=== PATIENT | female | born 1950 | race Caucasian/White ===

== ENCOUNTER 2016-09-07 17:18 | Emergency (ER) | payer MEDICARE, OTHER ==
[~2016-09-07] VITALS: Ht 170.2 cm; Wt 51.7 kg
[~2016-09-07 17:18] MED LIST: ALBUAER3 IN; ALPR0.5T PO
[2016-09-07 18:36] LABS: Basophils # (auto) 0 uL; Basophils % (auto) 0.5 % (0.0-2.0); CONDITION AutoValidated; Eosinophils # (auto) 0.1 uL; Eosinophils % (auto) 1.8 % (0.0-7.0); Hematocrit 46.4 % (36.0-46.0); Hemoglobin 15.1 g/dL (12.2-16.2); Lymphocytes # (auto) 2.1 uL; Lymphocytes % (auto) 28.8 % (10.0-50.0); Mean Corpuscular Hemoglobin 29.7 pg (28.0-32.0); Mean Corpuscular Hgb Conc. 32.7 g/dL (32.0-36.0); Mean Corpuscular Volume 90.8 fL (80.0-100.0); Mean Platelet Volume 9.8 fL (7.4-10.4); Monocytes # (auto) 0.5 uL; Monocytes % (auto) 7.6 % (0.0-12.0); Neutrophils # (auto) 4.4 uL; Neutrophils % (auto) 61.3 % (37.0-80.0); Platelet Count (auto) 262 10^3/uL (140-450); Red Cell Distribution Width 13.8 % (11.6-16.0); White Blood Cell 7.1 10^3/uL (4.4-10.8)
[2016-09-07 18:46] LABS: Chloride 108 mmol/L (98-107); Potassium 3.9 mmol/L (3.5-5.1); Sodium 141 mmol/L (136-145)
[2016-09-07 18:51] LABS: Albumin 3.9 g/dL (3.4-5.0); Anion Gap 10 (5-15); Aspartate Aminotransferase 10 U/L (15-37); BUN/Creatinine Ratio 14.7; Blood Urea Nitrogen 11 mg/dL (7-18); Calcium 8.7 mg/dL (8.5-10.1); Carbon Dioxide 23 mmol/L (21-32); GFR African American 99 mL/min; GFR Non-African American 82 mL/min; Glucose 86 mg/dL (74-106); Magnesium 2.4 mg/dL (1.6-2.6)
[2016-09-07 18:53] LABS: Alkaline Phosphatase 107 U/L (45-117); Bilirubin, Total 0.5 mg/dL (0.2-1.0); Total Protein 7.1 g/dL (6.4-8.2)
[2016-09-07] MEDS ORDERED: IOHEXOL 300 MG/ML 100ML BOTTLE IJ ONE (23:14)
[2016-09-07] MEDS ORDERED: ONDANSETRON HCL 4 MG/2 ML VIAL IV ONE (23:15)
[2016-09-07] MEDS ORDERED: LIDOCAINE VISCOUS 2% 15ML UD PO ONE (23:15)
[2016-09-07] MEDS ORDERED: DONNATAL 5ml ORAL Elix (BELLADONNA ALK-PHENOBARB) PO ONE (23:15)
[2016-09-07] MEDS ORDERED: SODIUM CHLORIDE 0.9% 1,000 ML IV ONE (23:15)
[2016-09-07] MEDS ORDERED: ALUM & MAG HYDROX-SIMETH LIQ(MAALOX) 30 ML PO ONE (23:15)
[2016-09-08 01:07] LABS: Urine RBC None Seen /hpf (0 - 4)
[2016-09-08 01:27] VITALS: BP 123/76
[2016-09-08 01:51] LABS: Urine Bilirubin Negative (Negative); Urine Blood Negative /uL (Negative); Urine Color Yellow (Yellow); Urine Glucose Normal (Normal); Urine Ketone Negative (Negative); Urine Nitrite Negative (Negative); Urine Urobilinogen Normal (Negative)
== END 2016-09-08 04:37 | disposition home or self-care (01) ==
LOC: ER 17:27
DX: K29.00 Acute gastritis without bleeding (principal); J44.9 Chronic obstructive pulmonary disease, unspecified; F17.210 Nicotine dependence, cigarettes, uncomplicated; Z79.899 Other long term (current) drug therapy
CPT/HCPCS: 36415; 71020; 74177; 80053; 81001; 83735; 84484; 85025; 93005; 94761; 96361; 96374; 99285; J2405; J7030; Q9967

== ENCOUNTER 2016-09-12 10:55 | Emergency (ER) | payer OTHER ==
[~2016-09-12] VITALS: Ht 170.2 cm; Wt 51.7 kg
[2016-09-12 12:58] LABS: Basophils # (auto) 0 uL; Basophils % (auto) 0.4 % (0.0-2.0); CONDITION Y; Eosinophils # (auto) 0.1 uL; Eosinophils % (auto) 0.9 % (0.0-7.0); Hemoglobin 15.4 g/dL (12.2-16.2); Lymphocytes # (auto) 1.8 uL; Lymphocytes % (auto) 25.2 % (10.0-50.0); Mean Corpuscular Hemoglobin 30.1 pg (28.0-32.0); Mean Corpuscular Hgb Conc. 33.5 g/dL (32.0-36.0); Mean Corpuscular Volume 89.9 fL (80.0-100.0); Mean Platelet Volume 9.6 fL (7.4-10.4); Monocytes # (auto) 0.5 uL; Monocytes % (auto) 6.7 % (0.0-12.0); Neutrophils # (auto) 4.8 uL; Neutrophils % (auto) 66.8 % (37.0-80.0); Platelet Count (auto) 249 10^3/uL (140-450); Red Cell Distribution Width 13.4 % (11.6-16.0); White Blood Cell 7.2 10^3/uL (4.4-10.8)
[2016-09-12 13:33] LABS: Albumin 3.9 g/dL (3.4-5.0); BUN/Creatinine Ratio 12.9; Bilirubin, Total 0.6 mg/dL (0.2-1.0); Calcium 8.9 mg/dL (8.5-10.1); Total Protein 6.8 g/dL (6.4-8.2)
[2016-09-12] MEDS ORDERED: SODIUM CHLORIDE 0.9% 1,000 ML IVB ONE (15:21)
[2016-09-12] MEDS ORDERED: IOHEXOL 300 MG/ML 100ML BOTTLE IJ ONE (15:30)
[2016-09-12] MEDS ORDERED: HYDROmorphone HCL 2 MG/ML VL IV ONE (15:30)
[2016-09-12] MEDS ORDERED: ONDANSETRON HCL 4 MG/2 ML VIAL IV ONE (15:30)
[2016-09-12] MEDS ORDERED: PANTOPRAZOLE SODIUM 40 MG/10 ML VIAL IV ONE (15:30)
[2016-09-12 17:16] LABS: Magnesium 2.9 mg/dL (1.6-2.6)
[2016-09-12 17:44] LABS: Urine Bilirubin Negative (Negative); Urine Blood Negative /uL (Negative); Urine Color Yellow (Yellow); Urine Glucose Normal (Normal); Urine Mucus FEW (None Seen); Urine Nitrite Negative (Negative); Urine RBC <1 /hpf (0 - 4); Urine Squamous Epithelial Cell FEW /hpf (<5); Urine Urobilinogen Normal (Negative)
[2016-09-12 17:45] LABS: Urine Ketone 1+ (Negative)
[2016-09-12 17:51] LABS: INR 1.03 (0.9-1.15); Partial Thromboplastin Time 25.4 sec (22.64-33.71); Prothrombin Time 11.2 sec (9.37-12.3)
[2016-09-12] MEDS ORDERED: ALUM & MAG HYDROX-SIMETH LIQ(MAALOX) 30 ML PO ONE (18:30)
[2016-09-12] MEDS ORDERED: NALBUPHINE HCL 10 MG/1ml INJECTION IV ONE (20:00)
[2016-09-12 22:08] VITALS: BP 120/73
== END 2016-09-12 22:16 | disposition home or self-care (01) ==
LOC: ER 10:55
DX: K59.00 Constipation, unspecified (principal); R10.13 Epigastric pain; R11.2 Nausea with vomiting, unspecified; J44.9 Chronic obstructive pulmonary disease, unspecified; F17.210 Nicotine dependence, cigarettes, uncomplicated
CPT/HCPCS: 36415; 74022; 80053; 81001; 82150; 83690; 83735; 85025; 85610; 85730; 93005; 96361; 96374; 96375; 99285; C9113; J2300; J2405; J7030; Q9967

== ENCOUNTER → 2016-11-30 | Outpatient (CLI) | payer OTHER ==
[2016-11-30 11:51] LABS: Basophils # (auto) 0 uL; Basophils % (auto) 0.5 % (0.0-2.0); Eosinophils # (auto) 0 uL; Eosinophils % (auto) 0.5 % (0.0-7.0); Hematocrit 44.6 % (36.0-46.0); Hemoglobin 15.2 g/dL (12.2-16.2); Lymphocytes # (auto) 1.4 uL; Lymphocytes % (auto) 18.8 % (10.0-50.0); Mean Corpuscular Hemoglobin 31.1 pg (28.0-32.0); Mean Corpuscular Hgb Conc. 34.1 g/dL (32.0-36.0); Mean Corpuscular Volume 91.1 fL (80.0-100.0); Monocytes # (auto) 0.4 uL; Monocytes % (auto) 5.5 % (0.0-12.0); Neutrophils # (auto) 5.5 uL; Neutrophils % (auto) 74.7 % (37.0-80.0); Platelet Count (auto) 224 10^3/uL (140-450); Red Cell Distribution Width 13.9 % (11.6-16.0); White Blood Cell 7.3 10^3/uL (4.4-10.8)
[2016-11-30 11:54] LABS: Allen Test Yes; Base Excess -1.7 mmol/L (-2.0-2.0); Blood 02Sat 95.8 % (96-100); Blood COHb 2.2 % (0.5-1.5); Blood MetHb 0.3 % (0.0-1.5); HCO3 21.3 mmol/L (22-26.0); HHb 4.1 % (0.0-5.0); MODE RA; O2Hb 93.4 % (94.0-97.0); PCO2 31.8 mmHg (35.0-45.0); PCO2(T) 31.8 mmHg (35.0-45.0); PO2 80.1 mmHg (80.0-100.0); PO2(T) 80.1 mmHg (80.0-100.0); Sample Type Arterial; pH 7.444 (7.350-7.450)
[2016-11-30 12:38] LABS: Potassium 3.7 mmol/L (3.5-5.1)
[2016-11-30 12:39] LABS: Albumin 3.6 g/dL (3.4-5.0); BUN/Creatinine Ratio 14.1; Bilirubin, Total 0.7 mg/dL (0.2-1.0); Calcium 9.1 mg/dL (8.5-10.1); Total Protein 6.9 g/dL (6.4-8.2)
== END | disposition home or self-care (01) ==
LOC: LAB 10:56 → RT 11:31
PROVIDERS: ATTEND Physician Assistant
DX: J44.9 Chronic obstructive pulmonary disease, unspecified (principal); N18.3 Chronic kidney disease, stage 3 (moderate)
CPT/HCPCS: 36415; 36600; 80053; 80061; 82306; 82607; 82805; 83036; 84443; 85025

== ENCOUNTER → 2017-01-04 | Outpatient (CLI) | payer OTHER ==
[~2017-01-04] MED LIST changes: +ALBUTEROL SULF 2.5 MG/0.5ML(0.5%) NEB SOLN ONE; +SODIUM CHLORIDE 0.9 % NEB SOLN 3ML NEB ONE
== END | disposition home or self-care (01) ==
LOC: RT 08:25
PROVIDERS: ATTEND Internal Medicine Pulmonary Disease
DX: J44.9 Chronic obstructive pulmonary disease, unspecified (principal)
CPT/HCPCS: 94060; 94620

== ENCOUNTER 2017-03-26 11:44 | Inpatient (IN) | payer OTHER ==
[~2017-03-26] VITALS: Ht 170.2 cm; Wt 70.3 kg
[~2017-03-26 11:44] MED LIST changes: -ALBUTEROL SULF 2.5 MG/0.5ML(0.5%) NEB SOLN ONE; -SODIUM CHLORIDE 0.9 % NEB SOLN 3ML NEB ONE
[2017-03-26] MEDS ORDERED: IPRATROPIUM BROM 0.5 MG/2.5ML INH SOL HHN ONE (14:00)
[2017-03-26] MEDS ORDERED: methylPREDNISolone SOD SUCC 125 MG/2 ML VL IV ONE (14:00)
[2017-03-26] MEDS ORDERED: ALBUTEROL SULF 2.5 MG/0.5ML(0.5%) NEB SOLN HHN ONE (14:00)
[2017-03-26 14:42] LABS: Basophils # (auto) 0 uL; Basophils % (auto) 0.6 % (0.0-2.0); Eosinophils # (auto) 0.1 uL; Eosinophils % (auto) 2.1 % (0.0-7.0); Hematocrit 44.9 % (36.0-46.0); Hemoglobin 15.1 g/dL (12.2-16.2); Lymphocytes # (auto) 1.7 uL; Lymphocytes % (auto) 40.8 % (10.0-50.0); Mean Corpuscular Hemoglobin 30.8 pg (28.0-32.0); Mean Corpuscular Hgb Conc. 33.7 g/dL (32.0-36.0); Mean Corpuscular Volume 91.4 fL (80.0-100.0); Monocytes # (auto) 0.4 uL; Monocytes % (auto) 9.2 % (0.0-12.0); Neutrophils # (auto) 1.9 uL; Neutrophils % (auto) 47.3 % (37.0-80.0); Nucleated Red Blood Cells % 0.5 %; Platelet Count (auto) 154 10^3/uL (140-450); Red Blood Cells 4.91 10^6/uL (4.0-5.20); Red Cell Distribution Width 13.9 % (11.8-14.3); White Blood Cell 4.1 10^3/uL (4.4-10.8)
[2017-03-26 14:58] LABS: Alanine Aminotransferase 17 U/L (13-56); Albumin 3.5 g/dL (3.4-5.0); Alkaline Phosphatase 107 U/L (45-117); Anion Gap 7 (5-15); Aspartate Aminotransferase 11 U/L (15-37); BUN/Creatinine Ratio 23.2; Bilirubin, Total 0.4 mg/dL (0.2-1.0); Blood Urea Nitrogen 13 mg/dL (7-18); Calcium 8.1 mg/dL (8.5-10.1); Carbon Dioxide 25 mmol/L (21-32); Chloride 110 mmol/L (98-107); GFR African American 139 mL/min; GFR Non-African American 115 mL/min; Glucose 86 mg/dL (74-106); Potassium 3.5 mmol/L (3.5-5.1); Sodium 142 mmol/L (136-145); Total Protein 6.4 g/dL (6.4-8.2)
[2017-03-26] MEDS ORDERED: ACETAMINOPHEN 325 MG TAB PO PRN (22:45)
[2017-03-26] MEDS ORDERED: HYDROcodone-ACET 5/325MG TAB PO PRN (22:45)
[2017-03-26] MEDS ORDERED: ONDANSETRON HCL 4 MG/2 ML VIAL IV PRN (22:45)
[2017-03-26 23:40] VITALS: BP 119/62
[2017-03-27] VITALS (7 sets, daily range): BP systolic 105–123; BP diastolic 59–71
[2017-03-27] MEDS: ALPRAZolam 0.5 MG TAB PO PRN ×2 (04:30→20:34)
[2017-03-27 06:22] LABS: Basophils # (auto) 0 uL; Basophils % (auto) 0.1 % (0.0-2.0); Eosinophils # (auto) 0 uL; Eosinophils % (auto) 0.1 % (0.0-7.0); Hemoglobin 14.3 g/dL (12.2-16.2); Lymphocytes # (auto) 0.7 uL; Lymphocytes % (auto) 16.1 % (10.0-50.0); Mean Corpuscular Hemoglobin 30.5 pg (28.0-32.0); Mean Corpuscular Hgb Conc. 33.2 g/dL (32.0-36.0); Mean Corpuscular Volume 91.9 fL (80.0-100.0); Monocytes # (auto) 0.4 uL; Monocytes % (auto) 8.3 % (0.0-12.0); Neutrophils # (auto) 3.3 uL; Neutrophils % (auto) 75.4 % (37.0-80.0); Platelet Count (auto) 158 10^3/uL (140-450); Red Blood Cells 4.68 10^6/uL (4.0-5.20); Red Cell Distribution Width 13.7 % (11.8-14.3); White Blood Cell 4.4 10^3/uL (4.4-10.8)
[2017-03-27 06:46] LABS: BUN/Creatinine Ratio 32.1; Calcium 8.8 mg/dL (8.5-10.1); Potassium 4.3 mmol/L (3.5-5.1)
[2017-03-27] MEDS: IPRATROPIUM BROM 0.5 MG/2.5ML INH SOL NEB SCH ×5 (07:34→22:35)
[2017-03-27] MEDS: ALBUTEROL SULF 2.5 MG/0.5ML(0.5%) NEB SOLN NEB SCH ×5 (07:34→22:35)
[2017-03-27] MEDS ORDERED: UMEC1AER IN (08:22)
[2017-03-27] MEDS ORDERED: AZITHROMYCIN 250 MG TAB PO SCH (10:00)
[2017-03-27] MEDS: methylPREDNISolone SOD SUCC 125 MG/2 ML VL IV SCH (21:03)
[2017-03-27] MEDS: DOXYCYCLINE 100 MG TAB/CAP PO SCH (21:04)
[2017-03-27] MEDS: BUDESONIDE (INHALATION) 0.5 MG/2 ML NEB NEB SCH (22:35)
[2017-03-28 05:53] VITALS: BP 111/65
[2017-03-28] MEDS: methylPREDNISolone SOD SUCC 125 MG/2 ML VL IV SCH ×3 (06:00→20:36)
[2017-03-28] MEDS: ALBUTEROL SULF 2.5 MG/0.5ML(0.5%) NEB SOLN NEB SCH ×4 (07:05→19:16)
[2017-03-28] MEDS: IPRATROPIUM BROM 0.5 MG/2.5ML INH SOL NEB SCH ×4 (07:05→19:16)
[2017-03-28 08:00] VITALS: BP 114/65
[2017-03-28] MEDS: DOXYCYCLINE 100 MG TAB/CAP PO SCH ×2 (09:25→20:35)
[2017-03-28] MEDS: BUDESONIDE (INHALATION) 0.5 MG/2 ML NEB NEB SCH ×2 (10:22→19:16)
[2017-03-28 12:00] VITALS: BP 121/65
[2017-03-28 17:00] VITALS: BP 118/62
[2017-03-28] MEDS: ALPRAZolam 0.5 MG TAB PO PRN (22:06)
[2017-03-28 22:17] VITALS: BP 107/69
[2017-03-29] MEDS: methylPREDNISolone SOD SUCC 125 MG/2 ML VL IV SCH ×3 (05:26→21:35)
[2017-03-29 05:52] VITALS: BP 117/68
[2017-03-29] MEDS: ALBUTEROL SULF 2.5 MG/0.5ML(0.5%) NEB SOLN NEB SCH ×4 (06:05→18:55)
[2017-03-29] MEDS: BUDESONIDE (INHALATION) 0.5 MG/2 ML NEB NEB SCH ×2 (06:05→18:56)
[2017-03-29] MEDS: IPRATROPIUM BROM 0.5 MG/2.5ML INH SOL NEB SCH ×4 (06:05→18:55)
[2017-03-29 09:00] VITALS: BP 110/65
[2017-03-29] MEDS: DOXYCYCLINE 100 MG TAB/CAP PO SCH ×2 (09:30→21:35)
[2017-03-29 13:00] VITALS: BP 145/71
[2017-03-29 17:00] VITALS: BP 122/63
[2017-03-29] MEDS: ALPRAZolam 0.5 MG TAB PO PRN (21:36)
[2017-03-29] MEDS: DOCUSATE SOD 100 MG CAP PO PRN (21:36)
[2017-03-29 23:25] VITALS: BP 114/53
[2017-03-30 05:11] VITALS: BP 113/61
[2017-03-30] MEDS: IPRATROPIUM BROM 0.5 MG/2.5ML INH SOL NEB SCH ×4 (06:06→19:17)
[2017-03-30] MEDS: ALBUTEROL SULF 2.5 MG/0.5ML(0.5%) NEB SOLN NEB SCH ×4 (06:06→19:17)
[2017-03-30] MEDS: methylPREDNISolone SOD SUCC 125 MG/2 ML VL IV SCH ×3 (06:22→21:42)
[2017-03-30 08:24] VITALS: BP 114/72
[2017-03-30] MEDS: DOXYCYCLINE 100 MG TAB/CAP PO SCH ×2 (09:29→21:42)
[2017-03-30] MEDS: BUDESONIDE (INHALATION) 0.5 MG/2 ML NEB NEB SCH ×2 (10:24→19:18)
[2017-03-30] MEDS: DOCUSATE SOD 100 MG CAP PO PRN (11:54)
[2017-03-30 12:00] VITALS: BP 116/61
[2017-03-30] MEDS: guaiFENesin 200 MG/10 ML UD GT SCH ×2 (13:55→18:41)
[2017-03-30 14:29] VITALS: BP 116/61
[2017-03-30 16:00] VITALS: BP 116/67
[2017-03-30] MEDS: ALPRAZolam 0.5 MG TAB PO PRN (23:00)
[2017-03-30 23:58] VITALS: BP 125/65
[2017-03-31 04:56] VITALS: BP 118/68
[2017-03-31] MEDS: methylPREDNISolone SOD SUCC 125 MG/2 ML VL IV SCH ×3 (05:59→21:29)
[2017-03-31] MEDS: guaiFENesin 200 MG/10 ML UD GT SCH ×4 (05:59→17:45)
[2017-03-31] MEDS: ALBUTEROL SULF 2.5 MG/0.5ML(0.5%) NEB SOLN NEB SCH ×4 (06:29→22:00)
[2017-03-31] MEDS: IPRATROPIUM BROM 0.5 MG/2.5ML INH SOL NEB SCH ×4 (06:29→22:00)
[2017-03-31 09:20] VITALS: BP 114/63
[2017-03-31] MEDS: DOXYCYCLINE 100 MG TAB/CAP PO SCH ×2 (09:27→21:29)
[2017-03-31] MEDS: DOCUSATE SOD 100 MG CAP PO PRN ×2 (09:27→21:30)
[2017-03-31] MEDS: BUDESONIDE (INHALATION) 0.5 MG/2 ML NEB NEB SCH ×2 (10:07→22:00)
[2017-03-31 13:46] VITALS: BP 103/65
[2017-03-31] MEDS ORDERED: AZITHROMYCIN 500MG/ 250ML 250 ML IV ONE (16:15)
[2017-03-31] MEDS ORDERED: MONTELUKAST SODIUM 10 MG TAB PO ONE (16:15)
[2017-03-31 17:42] VITALS: BP 104/62
[2017-03-31] MEDS: MONTELUKAST SODIUM 10 MG TAB PO SCH (21:29)
[2017-03-31 21:30] VITALS: BP 111/62
[2017-03-31] MEDS: ALPRAZolam 0.5 MG TAB PO PRN (21:30)
[2017-04-01 05:30] VITALS: BP 99/56
[2017-04-01] MEDS: ALBUTEROL SULF 2.5 MG/0.5ML(0.5%) NEB SOLN NEB SCH ×4 (05:47→18:44)
[2017-04-01] MEDS: IPRATROPIUM BROM 0.5 MG/2.5ML INH SOL NEB SCH ×4 (05:47→18:44)
[2017-04-01] MEDS: BUDESONIDE (INHALATION) 0.5 MG/2 ML NEB NEB SCH ×2 (05:47→22:55)
[2017-04-01] MEDS: methylPREDNISolone SOD SUCC 125 MG/2 ML VL IV SCH ×3 (05:58→21:19)
[2017-04-01] MEDS: guaiFENesin 200 MG/10 ML UD GT SCH ×4 (05:58→17:48)
[2017-04-01 09:17] VITALS: BP 109/55
[2017-04-01] MEDS: AZITHROMYCIN 500MG/ 250ML 250 ML IV SCH (09:40)
[2017-04-01] MEDS: DOCUSATE SOD 100 MG CAP PO PRN ×2 (09:40→22:10)
[2017-04-01] MEDS: DOXYCYCLINE 100 MG TAB/CAP PO SCH ×2 (10:00→21:19)
[2017-04-01 12:47] VITALS: BP 115/58
[2017-04-01 17:40] VITALS: BP 111/62
[2017-04-01] MEDS: MONTELUKAST SODIUM 10 MG TAB PO SCH (21:19)
[2017-04-01 21:30] VITALS: BP 114/69
[2017-04-01] MEDS: ALPRAZolam 0.5 MG TAB PO PRN (22:10)
[2017-04-02] VITALS (7 sets, daily range): BP systolic 105–145; BP diastolic 59–77
[2017-04-02] MEDS: guaiFENesin 200 MG/10 ML UD GT SCH ×4 (06:03→18:00)
[2017-04-02] MEDS: methylPREDNISolone SOD SUCC 125 MG/2 ML VL IV SCH ×3 (06:03→19:04)
[2017-04-02] MEDS: IPRATROPIUM BROM 0.5 MG/2.5ML INH SOL NEB SCH ×4 (06:38→19:52)
[2017-04-02] MEDS: ALBUTEROL SULF 2.5 MG/0.5ML(0.5%) NEB SOLN NEB SCH ×4 (06:38→19:52)
[2017-04-02 06:50] LABS: Basophils # (auto) 0 uL; Basophils % (auto) 0.1 % (0.0-2.0); Eosinophils # (auto) 0 uL; Hematocrit 44.9 % (36.0-46.0); Hemoglobin 14.8 g/dL (12.2-16.2); Lymphocytes # (auto) 1.4 uL; Lymphocytes % (auto) 10.4 % (10.0-50.0); Mean Corpuscular Hgb Conc. 32.9 g/dL (32.0-36.0); Mean Corpuscular Volume 91.3 fL (80.0-100.0); Monocytes # (auto) 0.7 uL; Monocytes % (auto) 5.5 % (0.0-12.0); Nucleated Red Blood Cells % 0.1 %; Platelet Count (auto) 277 10^3/uL (140-450); Red Blood Cells 4.92 10^6/uL (4.0-5.20); White Blood Cell 13.1 10^3/uL (4.4-10.8)
[2017-04-02 07:07] LABS: BUN/Creatinine Ratio 34.6; Calcium 8.6 mg/dL (8.5-10.1)
[2017-04-02] MEDS: BUDESONIDE (INHALATION) 0.5 MG/2 ML NEB NEB SCH ×2 (10:11→19:52)
[2017-04-02] MEDS: DOXYCYCLINE 100 MG TAB/CAP PO SCH ×2 (10:51→21:36)
[2017-04-02] MEDS: AZITHROMYCIN 500MG/ 250ML 250 ML IV SCH (10:52)
[2017-04-02] MEDS: MONTELUKAST SODIUM 10 MG TAB PO SCH (21:36)
[2017-04-02] MEDS: ALPRAZolam 0.5 MG TAB PO PRN (21:36)
[2017-04-02] MEDS: DOCUSATE SOD 100 MG CAP PO PRN (21:42)
[2017-04-03] MEDS: methylPREDNISolone SOD SUCC 125 MG/2 ML VL IV SCH ×3 (00:20→15:59)
[2017-04-03 05:00] VITALS: BP 127/70
[2017-04-03] MEDS: ALPRAZolam 0.5 MG TAB PO PRN (05:55)
[2017-04-03] MEDS: guaiFENesin 200 MG/10 ML UD GT SCH ×3 (05:56→14:00)
[2017-04-03] MEDS: IPRATROPIUM BROM 0.5 MG/2.5ML INH SOL NEB SCH ×3 (06:35→13:53)
[2017-04-03] MEDS: ALBUTEROL SULF 2.5 MG/0.5ML(0.5%) NEB SOLN NEB SCH ×3 (06:36→13:54)
[2017-04-03 08:00] VITALS: BP 107/62
[2017-04-03 08:01] VITALS: BP 107/62
[2017-04-03] MEDS: AZITHROMYCIN 500MG/ 250ML 250 ML IV SCH (10:04)
[2017-04-03] MEDS: DOXYCYCLINE 100 MG TAB/CAP PO SCH (10:04)
[2017-04-03] MEDS: BUDESONIDE (INHALATION) 0.5 MG/2 ML NEB NEB SCH (10:10)
[2017-04-03 11:37] VITALS: BP 114/68
[2017-04-03 16:58] VITALS: BP 103/52
[2017-04-03] MEDS ORDERED: BOOST PLUS 8 ounce PO SCH (18:00)
== END 2017-04-03 17:45 | disposition home or self-care (01) | DRG 191 ==
LOC: EDBD 11:44 → ER 11:44 → EDSEX 11:44 → OVERFLOW 11:45 → EAST 23:37
PROVIDERS: ADMIT Nurse Practitioner Family; ATTEND Internal Medicine Pulmonary Disease
DX: J44.1 Chronic obstructive pulmonary disease with (acute) exacerbation (principal); J80 Acute respiratory distress syndrome; F17.200 Nicotine dependence, unspecified, uncomplicated; J20.9 Acute bronchitis, unspecified; J44.0 Chronic obstructive pulmonary disease with (acute) lower respiratory infection; F41.9 Anxiety disorder, unspecified; F17.210 Nicotine dependence, cigarettes, uncomplicated
CPT/HCPCS: 36415; 71045; 80048; 80053; 84484; 85025; 87493; 93005; 94640; 94644; 94761; 96374; J2405

== ENCOUNTER 2017-12-19 11:38 | Inpatient (IN) | payer OTHER ==
[~2017-12-19] VITALS: Ht 165.1 cm; Wt 51.4 kg
[~2017-12-19 11:38] MED LIST changes: +UMEC1AER IN
[2017-12-19 13:45] LABS: Basophils # (auto) 0.1 uL; Basophils % (auto) 0.5 % (0.0-2.0); Eosinophils # (auto) 0 uL; Eosinophils % (auto) 0.5 % (0.0-7.0); Hematocrit 48.5 % (36.0-46.0); Hemoglobin 16.1 g/dL (12.2-16.2); Lymphocytes # (auto) 1.2 uL; Lymphocytes % (auto) 12.6 % (10.0-50.0); Mean Corpuscular Hemoglobin 31.4 pg (28.0-32.0); Mean Corpuscular Hgb Conc. 33.3 g/dL (32.0-36.0); Mean Corpuscular Volume 94.5 fL (80.0-100.0); Monocytes # (auto) 0.3 uL; Monocytes % (auto) 3.4 % (0.0-12.0); Neutrophils # (auto) 8.1 uL; Nucleated Red Blood Cells % 0.2 %; Platelet Count (auto) 244 10^3/uL (140-450); Red Blood Cells 5.13 10^6/uL (4.0-5.20); Red Cell Distribution Width 13.8 % (11.8-14.3); White Blood Cell 9.7 10^3/uL (4.4-10.8)
[2017-12-19 14:08] LABS: Calcium 8.8 mg/dL (8.5-10.1); Chloride 106 mmol/L (98-107); Potassium 5.1 mmol/L (3.5-5.1); Sodium 141 mmol/L (136-145)
[2017-12-19 14:12] LABS: Alanine Aminotransferase 23 U/L (13-56); Albumin 3.6 g/dL (3.4-5.0); Anion Gap 9 (5-15); Aspartate Aminotransferase 15 U/L (15-37); BUN/Creatinine Ratio 20.3; Blood Urea Nitrogen 15 mg/dL (7-18); Carbon Dioxide 26 mmol/L (21-32); GFR African American 101 mL/min; GFR Non-African American 83 mL/min; Glucose 88 mg/dL (74-106); Magnesium 2.7 mg/dL (1.6-2.6)
[2017-12-19 14:16] LABS: Alkaline Phosphatase 101 U/L (45-117); Bilirubin, Total 0.5 mg/dL (0.2-1.0)
[2017-12-19] MEDS ORDERED: ALBUTEROL SULF 2.5 MG/0.5ML(0.5%) NEB SOLN HHN ONE (15:15)
[2017-12-19] MEDS ORDERED: methylPREDNISolone SOD SUCC 125 MG/2 ML VL IV ONE (15:15)
[2017-12-19] MEDS ORDERED: cefTRIAXone 1GM/10ml IVPUSH 10 ML IV ONE (15:15)
[2017-12-19] MEDS ORDERED: HYDROcodone-ACET 5/325MG TAB PO PRN (17:30)
[2017-12-19] MEDS ORDERED: PROMETHAZINE HCL 25 MG/ML 1ML IV PRN (17:30)
[2017-12-19] MEDS ORDERED: TEMAZEPAM 15 MG CAP PO PRN (17:30)
[2017-12-19] MEDS ORDERED: LACTULOSE 20Gm/30ML SOLN PO PRN (17:30)
[2017-12-19] MEDS ORDERED: NITROGLYCERIN 0.4 MG SL TAB SL PRN (17:30)
[2017-12-19] MEDS ORDERED: LORazepam 0.5 MG TAB PO PRN (17:30)
[2017-12-19] MEDS ORDERED: DOXYCYCLINE 100MG/250ML 250 ML IV SCH (17:30)
[2017-12-19] MEDS ORDERED: ALBUTEROL SULF 2.5 MG/0.5ML(0.5%) NEB SOLN NEB PRN (17:30)
[2017-12-19] MEDS ORDERED: MORPHINE SULFATE 4 MG/ML SYR/VIAL IV PRN ×2 (17:30)
[2017-12-19] MEDS ORDERED: ACETAMINOPHEN 500 MG TAB PO PRN (17:30)
[2017-12-19] MEDS: ALBUTEROL SULF 2.5 MG/0.5ML(0.5%) NEB SOLN NEB SCH (18:00)
[2017-12-19] MEDS ORDERED: ALPRAZolam 0.5 MG TAB PO SCH (18:00)
[2017-12-19] MEDS: IPRATROPIUM BROM 0.5 MG/2.5ML INH SOL NEB SCH (18:00)
[2017-12-19] MEDS: methylPREDNISolone SOD SUCC 40 MG/ML VL IV SCH (18:00)
[2017-12-19] MEDS: SODIUM CHLORIDE 0.9% 1,000 ML IV SCH (18:33)
[2017-12-19 22:20] VITALS: BP 127/75
[2017-12-19 22:39] VITALS: BP 120/66
[2017-12-20] MEDS: ALBUTEROL SULF 2.5 MG/0.5ML(0.5%) NEB SOLN NEB SCH ×4 (01:15→18:25)
[2017-12-20] MEDS: IPRATROPIUM BROM 0.5 MG/2.5ML INH SOL NEB SCH ×4 (01:15→18:25)
[2017-12-20] MEDS: methylPREDNISolone SOD SUCC 40 MG/ML VL IV SCH ×4 (01:48→18:04)
[2017-12-20 03:04] VITALS: BP 120/66
[2017-12-20 05:00] VITALS: BP 111/60
[2017-12-20] MEDS ORDERED: MONT10TA34 OR (06:20)
[2017-12-20] MEDS ORDERED: ALBU1AER4 IN (06:22)
[2017-12-20] MEDS: SODIUM CHLORIDE 0.9% 1,000 ML IV SCH ×2 (06:47→13:02)
[2017-12-20] MEDS: UMECLIDINIUM VILANTEROL IN SCH (07:00)
[2017-12-20 08:50] VITALS: BP 111/67
[2017-12-20] MEDS: DOXYCYCLINE 100MG/250ML 250 ML IV SCH ×2 (09:52→22:58)
[2017-12-20] MEDS: PANTOPRAZOLE 40 MG TAB PO SCH (09:53)
[2017-12-20] MEDS: ENOXAPARIN SOD 40 MG/0.4 ML SYRINGE SC SCH (09:53)
[2017-12-20 11:59] VITALS: BP 125/75
[2017-12-20] MEDS ORDERED: guaiFENesin-DM 100/10mg/5ml SYR PO PRN (13:00)
[2017-12-20] MEDS: ALPRAZolam 0.5 MG TAB PO PRN (14:52)
[2017-12-20 16:33] VITALS: BP 117/57
[2017-12-20 22:00] VITALS: BP 118/73
[2017-12-21] MEDS: methylPREDNISolone SOD SUCC 40 MG/ML VL IV SCH ×4 (00:11→22:04)
[2017-12-21] MEDS: ALBUTEROL SULF 2.5 MG/0.5ML(0.5%) NEB SOLN NEB SCH ×4 (00:18→19:13)
[2017-12-21] MEDS: IPRATROPIUM BROM 0.5 MG/2.5ML INH SOL NEB SCH ×4 (00:18→19:13)
[2017-12-21 05:00] VITALS: BP 100/49
[2017-12-21 06:16] LABS: Hematocrit 42.2 % (36.0-46.0); Hemoglobin 13.9 g/dL (12.2-16.2); Mean Corpuscular Hemoglobin 31.1 pg (28.0-32.0); Mean Corpuscular Hgb Conc. 32.9 g/dL (32.0-36.0); Mean Corpuscular Volume 94.6 fL (80.0-100.0); Platelet Count (auto) 224 10^3/uL (140-450); Red Blood Cells 4.46 10^6/uL (4.0-5.20); White Blood Cell 15.3 10^3/uL (4.4-10.8)
[2017-12-21 06:24] LABS: Band Neutrophils % (manual) 0; Basophils % (manual) 0 (0.0-2.0); Blast Cells 0; Eosinophils % (manual) 0 (0-7); Metamyelocytes % 0; Myelocytes % 0; Promyelocytes % 0; Reactive Lymphocytes 0
[2017-12-21 06:50] LABS: BUN/Creatinine Ratio 23.1; Calcium 8.6 mg/dL (8.5-10.1); Potassium 3.8 mmol/L (3.5-5.1)
[2017-12-21 06:55] LABS: Lymphocytes % (manual) 5 (10.0-50.0); Monocytes % (manual) 4 (0-12)
[2017-12-21] MEDS: SODIUM CHLORIDE 0.9% 1,000 ML IV SCH (07:02)
[2017-12-21] MEDS: UMECLIDINIUM VILANTEROL IN SCH (07:03)
[2017-12-21 08:06] VITALS: BP 114/64
[2017-12-21] MEDS: ENOXAPARIN SOD 40 MG/0.4 ML SYRINGE SC SCH (09:38)
[2017-12-21] MEDS: DOXYCYCLINE 100MG/250ML 250 ML IV SCH ×2 (09:59→22:05)
[2017-12-21] MEDS: PANTOPRAZOLE 40 MG TAB PO SCH (10:00)
[2017-12-21] MEDS: ALPRAZolam 0.5 MG TAB PO PRN ×2 (10:06→22:04)
[2017-12-21 11:31] VITALS: BP 109/61
[2017-12-21 16:55] VITALS: BP 113/54
[2017-12-21 22:00] VITALS: BP 110/59
[2017-12-22] MEDS: IPRATROPIUM BROM 0.5 MG/2.5ML INH SOL NEB SCH ×4 (00:35→19:49)
[2017-12-22] MEDS: ALBUTEROL SULF 2.5 MG/0.5ML(0.5%) NEB SOLN NEB SCH ×4 (00:35→19:49)
[2017-12-22 05:00] VITALS: BP 111/60
[2017-12-22] MEDS: methylPREDNISolone SOD SUCC 40 MG/ML VL IV SCH ×3 (05:30→22:23)
[2017-12-22 06:04] LABS: Basophils # (auto) 0 uL; Basophils % (auto) 0.2 % (0.0-2.0); Eosinophils # (auto) 0 uL; Hematocrit 42.4 % (36.0-46.0); Lymphocytes # (auto) 0.8 uL; Lymphocytes % (auto) 6.2 % (10.0-50.0); Mean Corpuscular Hemoglobin 31.2 pg (28.0-32.0); Mean Corpuscular Volume 94.7 fL (80.0-100.0); Monocytes # (auto) 0.4 uL; Monocytes % (auto) 2.8 % (0.0-12.0); Neutrophils # (auto) 11.9 uL; Neutrophils % (auto) 90.8 % (37.0-80.0); Platelet Count (auto) 224 10^3/uL (140-450); Red Blood Cells 4.48 10^6/uL (4.0-5.20); White Blood Cell 13.1 10^3/uL (4.4-10.8)
[2017-12-22] MEDS: UMECLIDINIUM VILANTEROL IN SCH (08:36)
[2017-12-22 09:00] VITALS: BP 115/61
[2017-12-22] MEDS: ENOXAPARIN SOD 40 MG/0.4 ML SYRINGE SC SCH (09:57)
[2017-12-22] MEDS: PANTOPRAZOLE 40 MG TAB PO SCH (10:15)
[2017-12-22] MEDS: DOXYCYCLINE 100MG/250ML 250 ML IV SCH ×2 (10:16→22:23)
[2017-12-22 13:00] VITALS: BP 128/76
[2017-12-22] MEDS ORDERED: HYDROcodone-ACET 5/325MG TAB PO PRN (16:00)
[2017-12-22 17:00] VITALS: BP 113/64
[2017-12-22] MEDS: Ensure Enlive Vanilla 8oz Bottle PO SCH (18:22)
[2017-12-22] MEDS: BUDESONIDE (INHALATION) 0.5 MG/2 ML NEB NEB SCH (19:49)
[2017-12-22] MEDS: ACETYLCYSTEINE 10 %(100MG/ML) SOL 4ML NEB SCH (19:49)
[2017-12-22 20:49] VITALS: BP 113/64
[2017-12-22 22:00] VITALS: BP 114/57
[2017-12-22] MEDS: ALPRAZolam 0.5 MG TAB PO PRN (22:24)
[2017-12-23 05:00] VITALS: BP 118/65
[2017-12-23] MEDS: methylPREDNISolone SOD SUCC 40 MG/ML VL IV SCH ×3 (06:06→22:17)
[2017-12-23] MEDS: BUDESONIDE (INHALATION) 0.5 MG/2 ML NEB NEB SCH ×2 (06:37→19:24)
[2017-12-23] MEDS: ACETYLCYSTEINE 10 %(100MG/ML) SOL 4ML NEB SCH ×2 (06:37)
[2017-12-23] MEDS: IPRATROPIUM BROM 0.5 MG/2.5ML INH SOL NEB SCH ×5 (06:37→19:42)
[2017-12-23] MEDS: ALBUTEROL SULF 2.5 MG/0.5ML(0.5%) NEB SOLN NEB SCH ×5 (06:37→19:42)
[2017-12-23] MEDS: Ensure Enlive Vanilla 8oz Bottle PO SCH ×3 (08:43→17:52)
[2017-12-23] MEDS: UMECLIDINIUM VILANTEROL IN SCH (08:43)
[2017-12-23] MEDS: ENOXAPARIN SOD 40 MG/0.4 ML SYRINGE SC SCH (10:00)
[2017-12-23 10:06] VITALS: BP 123/67
[2017-12-23] MEDS: PANTOPRAZOLE 40 MG TAB PO SCH (10:34)
[2017-12-23] MEDS: DOXYCYCLINE 100MG/250ML 250 ML IV SCH ×2 (10:34→22:18)
[2017-12-23 13:40] VITALS: BP 132/83
[2017-12-23 17:37] VITALS: BP 118/75
[2017-12-23 22:00] VITALS: BP 133/74
[2017-12-23] MEDS: ALPRAZolam 0.5 MG TAB PO PRN (22:17)
[2017-12-24] MEDS: methylPREDNISolone SOD SUCC 40 MG/ML VL IV SCH ×3 (05:41→20:47)
[2017-12-24 05:42] VITALS: BP 130/80
[2017-12-24] MEDS: ALBUTEROL SULF 2.5 MG/0.5ML(0.5%) NEB SOLN NEB SCH ×4 (06:37→22:47)
[2017-12-24] MEDS: IPRATROPIUM BROM 0.5 MG/2.5ML INH SOL NEB SCH ×4 (06:37→22:47)
[2017-12-24] MEDS: BUDESONIDE (INHALATION) 0.5 MG/2 ML NEB NEB SCH ×2 (06:38→22:46)
[2017-12-24 07:15] LABS: Mean Corpuscular Hemoglobin 31.1 pg (28.0-32.0); Mean Corpuscular Hgb Conc. 33.4 g/dL (32.0-36.0); Mean Corpuscular Volume 93.1 fL (80.0-100.0); Platelet Count (auto) 220 10^3/uL (140-450); Red Blood Cells 4.83 10^6/uL (4.0-5.20); Red Cell Distribution Width 14.4 % (11.8-14.3)
[2017-12-24 07:26] LABS: Basophils % (manual) 0 (0.0-2.0); Blast Cells 0; Eosinophils % (manual) 0 (0-7); Metamyelocytes % 0; Myelocytes % 0; Promyelocytes % 0; Reactive Lymphocytes 0
[2017-12-24 07:40] LABS: BUN/Creatinine Ratio 35.3; Calcium 8.6 mg/dL (8.5-10.1); Potassium 4.1 mmol/L (3.5-5.1)
[2017-12-24 08:24] LABS: Band Neutrophils % (manual) 1; Lymphocytes % (manual) 11 (10.0-50.0); Monocytes % (manual) 7 (0-12)
[2017-12-24] MEDS: UMECLIDINIUM VILANTEROL IN SCH (08:37)
[2017-12-24] MEDS: Ensure Enlive Vanilla 8oz Bottle PO SCH ×3 (08:37→18:18)
[2017-12-24 09:22] VITALS: BP 126/75
[2017-12-24] MEDS: DOXYCYCLINE 100MG/250ML 250 ML IV SCH ×2 (09:28→20:48)
[2017-12-24] MEDS: ENOXAPARIN SOD 40 MG/0.4 ML SYRINGE SC SCH (09:28)
[2017-12-24] MEDS: PANTOPRAZOLE 40 MG TAB PO SCH (09:28)
[2017-12-24 13:08] VITALS: BP 129/73
[2017-12-24 17:03] VITALS: BP 116/84
[2017-12-24] MEDS: ALPRAZolam 0.5 MG TAB PO PRN (20:47)
[2017-12-24 22:00] VITALS: BP 110/65
[2017-12-25] MEDS: IPRATROPIUM BROM 0.5 MG/2.5ML INH SOL NEB SCH ×6 (02:00→22:10)
[2017-12-25] MEDS: ALBUTEROL SULF 2.5 MG/0.5ML(0.5%) NEB SOLN NEB SCH ×6 (02:00→22:10)
[2017-12-25 05:44] VITALS: BP 114/69
[2017-12-25 06:08] LABS: Hematocrit 45.5 % (36.0-46.0); Hemoglobin 15.3 g/dL (12.2-16.2); Mean Corpuscular Hemoglobin 31.3 pg (28.0-32.0); Mean Corpuscular Hgb Conc. 33.7 g/dL (32.0-36.0); Mean Corpuscular Volume 92.9 fL (80.0-100.0); Platelet Count (auto) 217 10^3/uL (140-450); Red Blood Cells 4.89 10^6/uL (4.0-5.20); Red Cell Distribution Width 14.1 % (11.8-14.3); White Blood Cell 12.6 10^3/uL (4.4-10.8)
[2017-12-25 06:11] LABS: Basophils % (manual) 0 (0.0-2.0); Blast Cells 0; Eosinophils % (manual) 0 (0-7); Metamyelocytes % 0; Myelocytes % 0; Promyelocytes % 0; Reactive Lymphocytes 0
[2017-12-25] MEDS: methylPREDNISolone SOD SUCC 40 MG/ML VL IV SCH ×2 (06:30→08:16)
[2017-12-25] MEDS: BUDESONIDE (INHALATION) 0.5 MG/2 ML NEB NEB SCH ×2 (06:40→22:09)
[2017-12-25 06:55] LABS: Band Neutrophils % (manual) 2; Lymphocytes % (manual) 8 (10.0-50.0)
[2017-12-25 06:56] LABS: Monocytes % (manual) 5 (0-12)
[2017-12-25] MEDS: UMECLIDINIUM VILANTEROL IN SCH (07:00)
[2017-12-25] MEDS: Ensure Enlive Vanilla 8oz Bottle PO SCH ×4 (08:43→18:00)
[2017-12-25 08:58] VITALS: BP 115/63
[2017-12-25] MEDS: ENOXAPARIN SOD 40 MG/0.4 ML SYRINGE SC SCH (09:35)
[2017-12-25] MEDS: PANTOPRAZOLE 40 MG TAB PO SCH (09:37)
[2017-12-25] MEDS: DOXYCYCLINE 100MG/250ML 250 ML IV SCH (09:37)
[2017-12-25] MEDS: methylPREDNISolone SOD SUCC 125 MG/2 ML VL IV SCH ×3 (11:13→23:49)
[2017-12-25] MEDS: LEVOFLOXACIN 500 MG TAB PO SCH (11:13)
[2017-12-25 13:00] VITALS: BP 118/70
[2017-12-25 17:00] VITALS: BP 114/69
[2017-12-25 21:39] VITALS: BP_SYST 108; BP_SYST 114; BP_DIAS 64; BP_DIAS 69
[2017-12-25] MEDS: ALPRAZolam 0.5 MG TAB PO PRN (23:49)
[2017-12-26] MEDS: ALBUTEROL SULF 2.5 MG/0.5ML(0.5%) NEB SOLN NEB SCH ×5 (02:00→18:03)
[2017-12-26] MEDS: IPRATROPIUM BROM 0.5 MG/2.5ML INH SOL NEB SCH ×5 (02:00→18:03)
[2017-12-26 05:11] VITALS: BP 108/55
[2017-12-26] MEDS: BUDESONIDE (INHALATION) 0.5 MG/2 ML NEB NEB SCH (05:50)
[2017-12-26] MEDS: methylPREDNISolone SOD SUCC 125 MG/2 ML VL IV SCH ×3 (06:13→18:58)
[2017-12-26 08:00] VITALS: BP 102/54
[2017-12-26 09:25] VITALS: BP 102/54
[2017-12-26] MEDS: PANTOPRAZOLE 40 MG TAB PO SCH (09:35)
[2017-12-26] MEDS: LEVOFLOXACIN 500 MG TAB PO SCH (09:35)
[2017-12-26] MEDS: Ensure Enlive Vanilla 8oz Bottle PO SCH ×3 (09:35→17:51)
[2017-12-26] MEDS: ENOXAPARIN SOD 40 MG/0.4 ML SYRINGE SC SCH (09:35)
[2017-12-26] MEDS: ALPRAZolam 0.5 MG TAB PO PRN (09:36)
[2017-12-26 11:33] VITALS: BP 109/71
[2017-12-26 16:39] VITALS: BP 116/73
[2017-12-27] MEDS: methylPREDNISolone SOD SUCC 125 MG/2 ML VL IV SCH ×5 (00:11→23:37)
[2017-12-27] MEDS: ALPRAZolam 0.5 MG TAB PO PRN ×2 (00:11→23:38)
[2017-12-27 04:57] LABS: Hematocrit 44.9 % (36.0-46.0); Hemoglobin 14.7 g/dL (12.2-16.2); Mean Corpuscular Hgb Conc. 32.8 g/dL (32.0-36.0); Mean Corpuscular Volume 94.4 fL (80.0-100.0); Platelet Count (auto) 195 10^3/uL (140-450); Red Blood Cells 4.75 10^6/uL (4.0-5.20); Red Cell Distribution Width 14.4 % (11.8-14.3); White Blood Cell 12.8 10^3/uL (4.4-10.8)
[2017-12-27 05:04] LABS: Basophils % (manual) 0 (0.0-2.0); Blast Cells 0; Eosinophils % (manual) 0 (0-7); Myelocytes % 0; Promyelocytes % 0; Reactive Lymphocytes 0
[2017-12-27 05:05] VITALS: BP 112/68
[2017-12-27 05:18] LABS: Calcium 8.1 mg/dL (8.5-10.1)
[2017-12-27 05:20] LABS: BUN/Creatinine Ratio 36.1
[2017-12-27] MEDS: IPRATROPIUM BROM 0.5 MG/2.5ML INH SOL NEB SCH ×3 (05:54→14:01)
[2017-12-27] MEDS: ALBUTEROL SULF 2.5 MG/0.5ML(0.5%) NEB SOLN NEB SCH ×4 (05:54→22:11)
[2017-12-27 06:02] LABS: Band Neutrophils % (manual) 2; Lymphocytes % (manual) 6 (10.0-50.0); Metamyelocytes % 2; Monocytes % (manual) 2 (0-12)
[2017-12-27 09:00] VITALS: BP 122/76
[2017-12-27] MEDS: Ensure Enlive Vanilla 8oz Bottle PO SCH ×3 (09:57→18:04)
[2017-12-27] MEDS: LEVOFLOXACIN 500 MG TAB PO SCH (09:57)
[2017-12-27] MEDS: PANTOPRAZOLE 40 MG TAB PO SCH (09:57)
[2017-12-27] MEDS: ENOXAPARIN SOD 40 MG/0.4 ML SYRINGE SC SCH (10:00)
[2017-12-27] MEDS: BUDESONIDE (INHALATION) 0.5 MG/2 ML NEB NEB SCH ×2 (10:02→22:11)
[2017-12-27 13:00] VITALS: BP 96/65
[2017-12-27 17:00] VITALS: BP 117/64
[2017-12-27 22:00] VITALS: BP 121/75
[2017-12-27] MEDS: MONTELUKAST SODIUM 10 MG TAB PO SCH (23:37)
[2017-12-28 05:00] VITALS: BP 101/61
[2017-12-28] MEDS: methylPREDNISolone SOD SUCC 125 MG/2 ML VL IV SCH ×4 (06:04→23:28)
[2017-12-28] MEDS: ALBUTEROL SULF 2.5 MG/0.5ML(0.5%) NEB SOLN NEB SCH ×4 (06:26→21:57)
[2017-12-28] MEDS: IPRATROPIUM BROM 0.5 MG/2.5ML INH SOL NEB SCH ×4 (06:26→21:57)
[2017-12-28 08:00] VITALS: BP 111/70
[2017-12-28] MEDS: PANTOPRAZOLE 40 MG TAB PO SCH (09:57)
[2017-12-28] MEDS: Ensure Enlive Vanilla 8oz Bottle PO SCH ×3 (09:57→18:17)
[2017-12-28] MEDS: ENOXAPARIN SOD 40 MG/0.4 ML SYRINGE SC SCH (09:57)
[2017-12-28] MEDS: LEVOFLOXACIN 500 MG TAB PO SCH (09:57)
[2017-12-28] MEDS: BUDESONIDE (INHALATION) 0.5 MG/2 ML NEB NEB SCH ×2 (10:22→18:01)
[2017-12-28 13:00] VITALS: BP 112/66
[2017-12-28 20:00] VITALS: BP 108/60
[2017-12-28] MEDS: MONTELUKAST SODIUM 10 MG TAB PO SCH (21:54)
[2017-12-28 22:00] VITALS: BP 108/60
[2017-12-28] MEDS: ALPRAZolam 0.5 MG TAB PO PRN (23:28)
[2017-12-29 02:15] VITALS: BP 108/60
[2017-12-29 05:00] VITALS: BP 116/67
[2017-12-29] MEDS: methylPREDNISolone SOD SUCC 125 MG/2 ML VL IV SCH ×2 (06:02→11:59)
[2017-12-29] MEDS: IPRATROPIUM BROM 0.5 MG/2.5ML INH SOL NEB SCH ×2 (06:14→14:47)
[2017-12-29] MEDS: BUDESONIDE (INHALATION) 0.5 MG/2 ML NEB NEB SCH (06:14)
[2017-12-29] MEDS: ALBUTEROL SULF 2.5 MG/0.5ML(0.5%) NEB SOLN NEB SCH ×2 (06:14→14:47)
[2017-12-29] MEDS: Ensure Enlive Vanilla 8oz Bottle PO SCH ×2 (08:18→11:59)
[2017-12-29 08:47] VITALS: BP 123/81
[2017-12-29] MEDS: ENOXAPARIN SOD 40 MG/0.4 ML SYRINGE SC SCH (10:00)
[2017-12-29] MEDS: PANTOPRAZOLE 40 MG TAB PO SCH (10:27)
[2017-12-29] MEDS: LEVOFLOXACIN 500 MG TAB PO SCH (10:27)
[2017-12-29] MEDS: ALPRAZolam 0.5 MG TAB PO PRN (12:26)
[2017-12-29 12:37] VITALS: BP 123/81
[2017-12-29 13:00] VITALS: BP 121/78
== END 2017-12-29 17:00 | disposition home or self-care (01) | DRG 189 ==
LOC: ER 11:41 → TELE 11:42 → TELE-WESTW 22:00 → WEST WING 12-22 16:12
PROVIDERS: ADMIT Internal Medicine; ATTEND Internal Medicine Pulmonary Disease
DX: J96.00 Acute respiratory failure, unspecified whether with hypoxia or hypercapnia (principal); J44.1 Chronic obstructive pulmonary disease with (acute) exacerbation; J44.0 Chronic obstructive pulmonary disease with (acute) lower respiratory infection; F17.210 Nicotine dependence, cigarettes, uncomplicated; F41.9 Anxiety disorder, unspecified; J20.9 Acute bronchitis, unspecified; Z99.81 Dependence on supplemental oxygen; T38.0X5A Adverse effect of glucocorticoids and synthetic analogues, initial encounter; D72.829 Elevated white blood cell count, unspecified; Y92.89 Other specified places as the place of occurrence of the external cause
CPT/HCPCS: 36415; 71046; 71250; 80048; 80053; 83735; 83880; 84484; 85007; 85025; 85027; 93005; 94640; 94667; 94668; 94761; 96361; 96365; 96375; J0696; J3490

== ENCOUNTER → 2018-02-06 | Outpatient (CLI) | payer OTHER ==
[~2018-02-06] MED LIST changes: +ALBU1AER4 IN; -ALBUAER3 IN; +MONT10TA34 OR
== END | disposition home or self-care (01) ==
LOC: LAB 15:10
PROVIDERS: ATTEND Physician Assistant
DX: Z12.11 Encounter for screening for malignant neoplasm of colon (principal)
CPT/HCPCS: 82270

== ENCOUNTER 2018-03-10 15:24 | Emergency (ER) | payer OTHER ==
[~2018-03-10] VITALS: Ht 170.2 cm; Wt 49.0 kg
[2018-03-10] MEDS ORDERED: SODIUM CHLORIDE 0.9% 1,000 ML IV ONE (15:41)
[2018-03-10] MEDS ORDERED: MORPHINE SULFATE 4 MG/ML SYR/VIAL IV ONE (15:45)
[2018-03-10] MEDS ORDERED: MECLIZINE HCL 25 MG TAB PO ONE (15:45)
[2018-03-10] MEDS ORDERED: ONDANSETRON HCL 4 MG/2 ML VIAL IV ONE (15:45)
[2018-03-10 16:01] LABS: Basophils # (auto) 0.1 uL; Basophils % (auto) 0.8 % (0.0-2.0); Eosinophils # (auto) 0 uL; Eosinophils % (auto) 0.6 % (0.0-7.0); Hematocrit 45.2 % (36.0-46.0); Hemoglobin 15.3 g/dL (12.2-16.2); Lymphocytes # (auto) 1.7 uL; Lymphocytes % (auto) 25.9 % (10.0-50.0); Mean Corpuscular Hemoglobin 31.9 pg (28.0-32.0); Mean Corpuscular Hgb Conc. 33.8 g/dL (32.0-36.0); Mean Corpuscular Volume 94.2 fL (80.0-100.0); Monocytes # (auto) 0.6 uL; Monocytes % (auto) 8.7 % (0.0-12.0); Neutrophils # (auto) 4.1 uL; Nucleated Red Blood Cells % 0.2 %; Platelet Count (auto) 239 10^3/uL (140-450); Red Cell Distribution Width 13.9 % (11.8-14.3); White Blood Cell 6.4 10^3/uL (4.4-10.8)
[2018-03-10 16:21] LABS: Albumin 3.9 g/dL (3.4-5.0); Anion Gap 4 (5-15); Aspartate Aminotransferase 10 U/L (15-37); BUN/Creatinine Ratio 12.1; Blood Urea Nitrogen 8 mg/dL (7-18); Calcium 8.8 mg/dL (8.5-10.1); Carbon Dioxide 27 mmol/L (21-32); Chloride 107 mmol/L (98-107); GFR African American 115 mL/min; GFR Non-African American 95 mL/min; Glucose 97 mg/dL (74-106); Potassium 3.7 mmol/L (3.5-5.1); Sodium 138 mmol/L (136-145)
[2018-03-10 16:26] LABS: Alanine Aminotransferase 15 U/L (13-56); Alkaline Phosphatase 104 U/L (45-117); Bilirubin, Total 0.7 mg/dL (0.2-1.0); Total Protein 6.8 g/dL (6.4-8.2)
[2018-03-10 16:27] VITALS: BP 109/78
== END 2018-03-10 16:50 | disposition home or self-care (01) ==
LOC: ER 15:24
DX: R10.13 Epigastric pain (principal); R42 Dizziness and giddiness; J44.9 Chronic obstructive pulmonary disease, unspecified; F41.9 Anxiety disorder, unspecified; F17.210 Nicotine dependence, cigarettes, uncomplicated; R51 Headache
CPT/HCPCS: 36415; 70450; 71045; 74176; 80053; 84484; 85025; 93005; 96361; 96374; 96375; 99284; J2270; J2405; J7030; J8597

== ENCOUNTER 2018-03-21 10:40 | Emergency (ER) | payer OTHER ==
[~2018-03-21] VITALS: Ht 170.2 cm; Wt 47.6 kg
[2018-03-21 11:16] LABS: Basophils # (auto) 0 uL; Basophils % (auto) 0.5 % (0.0-2.0); Eosinophils # (auto) 0 uL; Eosinophils % (auto) 0.4 % (0.0-7.0); Hematocrit 48.2 % (36.0-46.0); Hemoglobin 15.9 g/dL (12.2-16.2); Lymphocytes # (auto) 0.8 uL; Lymphocytes % (auto) 14.2 % (10.0-50.0); Mean Corpuscular Hemoglobin 31.3 pg (28.0-32.0); Mean Corpuscular Volume 94.9 fL (80.0-100.0); Monocytes # (auto) 0.5 uL; Neutrophils # (auto) 4.4 uL; Neutrophils % (auto) 76.9 % (37.0-80.0); Nucleated Red Blood Cells % 0.1 %; Platelet Count (auto) 213 10^3/uL (140-450); Red Blood Cells 5.08 10^6/uL (4.0-5.20); Red Cell Distribution Width 13.5 % (11.8-14.3); White Blood Cell 5.7 10^3/uL (4.4-10.8)
[2018-03-21 11:30] LABS: Urine WBC None Seen /hpf (0 - 5)
[2018-03-21 11:33] LABS: BUN/Creatinine Ratio 14.1; Calcium 8.8 mg/dL (8.5-10.1); Potassium 3.5 mmol/L (3.5-5.1)
[2018-03-21 11:35] LABS: Bilirubin, Total 0.9 mg/dL (0.2-1.0); Total Protein 6.9 g/dL (6.4-8.2)
[2018-03-21 12:06] LABS: Urine Bacteria NONE SEEN /hpf (None Seen); Urine Blood TRACE /uL (Negative); Urine Mucus FEW (None Seen); Urine Specific Gravity 1.021 (1.001-1.035)
[2018-03-21 13:30] VITALS: BP 112/55
== END 2018-03-21 13:55 | disposition home or self-care (01) ==
LOC: ER 10:43
CPT/HCPCS: 36415; 74176; 80053; 81001; 83690; 85025; 93005

== ENCOUNTER 2018-06-16 14:00 | Emergency (ER) | payer OTHER ==
[~2018-06-16] VITALS: Ht 170.2 cm; Wt 47.6 kg
[2018-06-16 14:54] LABS: Basophils # (auto) 0 uL; Basophils % (auto) 0.7 % (0.0-2.0); Eosinophils # (auto) 0 uL; Eosinophils % (auto) 0.3 % (0.0-7.0); Hematocrit 46.5 % (36.0-46.0); Hemoglobin 15.7 g/dL (12.2-16.2); Lymphocytes # (auto) 1.7 uL; Lymphocytes % (auto) 25.1 % (10.0-50.0); Mean Corpuscular Hgb Conc. 33.8 g/dL (32.0-36.0); Mean Corpuscular Volume 91.6 fL (80.0-100.0); Monocytes # (auto) 0.5 uL; Monocytes % (auto) 7.2 % (0.0-12.0); Neutrophils # (auto) 4.4 uL; Neutrophils % (auto) 66.7 % (37.0-80.0); Nucleated Red Blood Cells % 0.1 %; Platelet Count (auto) 231 10^3/uL (140-450); Red Blood Cells 5.08 10^6/uL (4.0-5.20); White Blood Cell 6.6 10^3/uL (4.4-10.8)
[2018-06-16 15:01] LABS: Albumin 3.8 g/dL (3.4-5.0); Anion Gap 9 (5-15); Blood Urea Nitrogen 6 mg/dL (7-18); Calcium 8.8 mg/dL (8.5-10.1); Carbon Dioxide 22 mmol/L (21-32); Chloride 107 mmol/L (98-107); Glucose 93 mg/dL (74-106); Potassium 3.5 mmol/L (3.5-5.1); Sodium 138 mmol/L (136-145)
[2018-06-16 15:04] LABS: Alanine Aminotransferase 16 U/L (13-56); Alkaline Phosphatase 112 U/L (45-117); Aspartate Aminotransferase 10 U/L (15-37); BUN/Creatinine Ratio 10.9; Bilirubin, Total 0.7 mg/dL (0.2-1.0); GFR African American 141 mL/min; GFR Non-African American 117 mL/min; Total Protein 6.9 g/dL (6.4-8.2)
[2018-06-16] MEDS ORDERED: SODIUM CHLORIDE 0.9% 1,000 ML IV ONE (16:02)
[2018-06-16] MEDS ORDERED: KETOROLAC TROMETH 30 MG/ML 1ML VIAL IV ONE (16:15)
[2018-06-16] MEDS ORDERED: METOCLOPRAMIDE HCL 5MG/ml INJ 2ml VIAL IV ONE (16:15)
[2018-06-16 16:30] VITALS: BP 119/50
[2018-06-16 16:43] LABS: Urine Bacteria NONE SEEN /hpf (None Seen); Urine Blood Negative /uL (Negative); Urine Specific Gravity 1.002 (1.001-1.035); Urine WBC <1 /hpf (0 - 5)
== END 2018-06-16 17:45 | disposition home or self-care (01) ==
LOC: ER 14:09
DX: J44.1 Chronic obstructive pulmonary disease with (acute) exacerbation (principal); F41.1 Generalized anxiety disorder; R51 Headache; F17.210 Nicotine dependence, cigarettes, uncomplicated
CPT/HCPCS: 36415; 71046; 80053; 81001; 83735; 84443; 84484; 85025; 93005; 94761; 96374; 96375; 99284; J1885; J2765; J7030

== ENCOUNTER → 2018-08-26 | Outpatient (CLI) | payer OTHER ==
[~2018-08-26] MED LIST changes: +ALBUTEROL SULF 2.5 MG/0.5ML(0.5%) NEB SOLN ONE
== END | disposition home or self-care (01) ==
LOC: RT 08:42
PROVIDERS: ATTEND Internal Medicine Pulmonary Disease
DX: J44.9 Chronic obstructive pulmonary disease, unspecified (principal)
CPT/HCPCS: 94010; J7611

== ENCOUNTER → 2018-10-28 | Outpatient (CLI) | payer OTHER, MEDICARE ==
[~2018-10-28] MED LIST changes: -ALBUTEROL SULF 2.5 MG/0.5ML(0.5%) NEB SOLN ONE
[2018-10-28 13:10] LABS: Basophils # (auto) 0.1 uL; Basophils % (auto) 1.1 % (0.0-2.0); Eosinophils # (auto) 0 uL; Eosinophils % (auto) 0.5 % (0.0-7.0); Hematocrit 43.1 % (36.0-46.0); Hemoglobin 14.4 g/dL (12.2-16.2); Lymphocytes # (auto) 1.4 uL; Lymphocytes % (auto) 22.8 % (10.0-50.0); Mean Corpuscular Hemoglobin 30.9 pg (28.0-32.0); Mean Corpuscular Hgb Conc. 33.3 g/dL (32.0-36.0); Mean Corpuscular Volume 92.5 fL (80.0-100.0); Monocytes # (auto) 0.4 uL; Monocytes % (auto) 7.1 % (0.0-12.0); Neutrophils # (auto) 4.2 uL; Neutrophils % (auto) 68.5 % (37.0-80.0); Platelet Count (auto) 200 10^3/uL (140-450); Red Blood Cells 4.66 10^6/uL (4.0-5.20); Red Cell Distribution Width 14.2 % (11.8-14.3); White Blood Cell 6.1 10^3/uL (4.4-10.8)
[2018-10-28 14:00] LABS: Albumin 3.7 g/dL (3.4-5.0); Calcium 8.9 mg/dL (8.5-10.1); Potassium 4.2 mmol/L (3.5-5.1)
[2018-10-28 14:06] LABS: BUN/Creatinine Ratio 14.1; Bilirubin, Total 0.6 mg/dL (0.2-1.0); Total Protein 6.6 g/dL (6.4-8.2)
== END | disposition home or self-care (01) ==
LOC: LAB 12:40
PROVIDERS: ATTEND Physician Assistant
DX: Z00.00 Encounter for general adult medical examination without abnormal findings (principal); J96.10 Chronic respiratory failure, unspecified whether with hypoxia or hypercapnia; J44.9 Chronic obstructive pulmonary disease, unspecified; R16.0 Hepatomegaly, not elsewhere classified; F32.9 Major depressive disorder, single episode, unspecified
CPT/HCPCS: 36415; 80053; 80061; 85025

== ENCOUNTER 2018-12-16 12:25 | Emergency (ER) | payer MEDICARE, OTHER ==
[~2018-12-16] VITALS: Ht 167.6 cm; Wt 45.4 kg
[2018-12-16] MEDS ORDERED: SODIUM CHLORIDE 0.9% 1,000 ML IV ONE (12:59)
[2018-12-16] MEDS ORDERED: FAMOTIDINE (10MG/ML) 2ML VL IV ONE (13:00)
[2018-12-16] MEDS ORDERED: MORPHINE SULFATE 4 MG/ML SYR/VIAL IV ONE (13:00)
[2018-12-16] MEDS ORDERED: ONDANSETRON HCL 4 MG/2 ML VIAL IM ONE (13:00)
[2018-12-16 13:53] LABS: Basophils # (auto) 0.1 uL; Eosinophils # (auto) 0 uL; Eosinophils % (auto) 0.4 % (0.0-7.0); Hematocrit 44.8 % (36.0-46.0); Hemoglobin 14.9 g/dL (12.2-16.2); Lymphocytes # (auto) 1.5 uL; Lymphocytes % (auto) 19.1 % (10.0-50.0); Mean Corpuscular Hgb Conc. 33.3 g/dL (32.0-36.0); Monocytes # (auto) 0.5 uL; Monocytes % (auto) 6.3 % (0.0-12.0); Neutrophils # (auto) 5.9 uL; Neutrophils % (auto) 73.2 % (37.0-80.0); Nucleated Red Blood Cells % 0.1 %; Platelet Count (auto) 222 10^3/uL (140-450); Red Blood Cells 4.82 10^6/uL (4.0-5.20); White Blood Cell 8.1 10^3/uL (4.4-10.8)
[2018-12-16 14:08] LABS: Albumin 3.8 g/dL (3.4-5.0); Potassium 3.7 mmol/L (3.5-5.1)
[2018-12-16 14:14] LABS: BUN/Creatinine Ratio 9.5; Bilirubin, Total 0.8 mg/dL (0.2-1.0); Total Protein 6.8 g/dL (6.4-8.2)
[2018-12-16 16:21] VITALS: BP 118/55
== END 2018-12-16 17:45 | disposition home or self-care (01) ==
LOC: ER 12:25 → EDBD 12:25 → ER 17:45
DX: R53.1 Weakness (principal); R19.7 Diarrhea, unspecified; R10.9 Unspecified abdominal pain; F17.210 Nicotine dependence, cigarettes, uncomplicated; J44.9 Chronic obstructive pulmonary disease, unspecified
CPT/HCPCS: 36415; 76705; 80053; 85025; 93005; 94761; 96361; 96372; 96374; 96375; 99284; J2270; J2405; J3490; J7030

== ENCOUNTER 2019-03-02 13:45 | Emergency (ER) | payer OTHER ==
[~2019-03-02] VITALS: Ht 167.6 cm; Wt 45.8 kg
[2019-03-02 18:03] VITALS: BP 105/61
[2019-03-02] MEDS ORDERED: KETOROLAC TROMETH 60MG/2ML VIAL IM ONE (18:15)
== END 2019-03-02 18:32 | disposition home or self-care (01) ==
LOC: ER 13:45
DX: M25.552 Pain in left hip (principal); M25.551 Pain in right hip; M19.90 Unspecified osteoarthritis, unspecified site; F17.210 Nicotine dependence, cigarettes, uncomplicated; Z79.899 Other long term (current) drug therapy
CPT/HCPCS: 96372; 99283; J1885

== ENCOUNTER 2019-10-13 06:45 | Inpatient (IN) | payer OTHER ==
[2019-10-10 11:18] LABS: Basophils # (auto) 0 10 ^3/uL (0-0.2); Basophils % (auto) 0.6 % (0.0-2.0); Eosinophils # (auto) 0.1 10 ^3/uL (0-0.8); Hematocrit 44.8 % (36.0-46.0); Hemoglobin 14.9 g/dL (12.2-16.2); Lymphocytes # (auto) 1.5 10 ^3/uL (0.4-5.4); Lymphocytes % (auto) 21.1 % (10.0-50.0); Mean Corpuscular Hemoglobin 31.4 pg (28.0-32.0); Mean Corpuscular Hgb Conc. 33.4 g/dL (32.0-36.0); Mean Corpuscular Volume 94.1 fL (80.0-100.0); Monocytes # (auto) 0.6 10 ^3/uL (0-1.3); Monocytes % (auto) 8.1 % (0.0-12.0); Neutrophils # (auto) 4.8 10 ^3/uL (1.6-8.6); Neutrophils % (auto) 69.2 % (37.0-80.0); Platelet Count (auto) 233 10^3/uL (140-450); Red Blood Cells 4.75 10^6/uL (4.0-5.20); Red Cell Distribution Width 14.4 % (11.8-14.3)
[2019-10-10 11:24] LABS: Urine Bacteria NONE SEEN /hpf (None Seen); Urine Blood Negative /uL (Negative); Urine Specific Gravity 1.005 (1.001-1.035); Urine WBC <1 /hpf (0 - 5)
[2019-10-10 11:32] LABS: INR 1.03 (0.9-1.15); Partial Thromboplastin Time 26.8 sec (23.64-32.05)
[2019-10-10 11:48] LABS: Albumin 3.7 g/dL (3.4-5.0); Calcium 9.2 mg/dL (8.5-10.1)
[2019-10-10 11:51] LABS: BUN/Creatinine Ratio 15.3; Bilirubin, Total 0.6 mg/dL (0.2-1.0); Total Protein 6.9 g/dL (6.4-8.2)
[2019-10-13] VITALS (14 sets, daily range): BP systolic 81–100; BP diastolic 43–56
[~2019-10-13] VITALS: Ht 167.6 cm; Wt 49.8 kg
[~2019-10-13 06:45] MED LIST changes: -ALBU1AER4 IN; +ALBUAER3 IN; +DULO30CA PO; +DULO60CA PO; -MONT10TA34 OR
[2019-10-13] MEDS ORDERED: CELECOXIB 100 MG CAP ONE (07:10)
[2019-10-13] MEDS ORDERED: ceFAZolin 1GM/50ML 50 ML IV ONE (07:10)
[2019-10-13] MEDS ORDERED: ACETAMINOPHEN IV 100 ML IV ONE (07:11)
[2019-10-13] MEDS ORDERED: PREGABALIN 25 MG CAP PO ONE (07:15)
[2019-10-13] MEDS ORDERED: TRANEXAMIC ACID 20 ML ONE (07:17)
[2019-10-13] MEDS ORDERED: BUPIVACAINE W/ EPINEPH 0.25% INJ 50ML MDV ONE (07:17)
[2019-10-13] MEDS ORDERED: TETRACAINE 1% INJ 2 ML VIAL IJ ONE (07:17)
[2019-10-13] MEDS ORDERED: KETOROLAC TROMETH 30 MG/ML 1ML VIAL ONE (07:19)
[2019-10-13] MEDS ORDERED: VANCOMYCIN HCL 1000 MG VL ONE (07:20)
[2019-10-13] MEDS ORDERED: SUCCINYLCHOLINE CHLORIDE 20 MG/ML 10ML VIAL IV ONE (07:34)
[2019-10-13] MEDS ORDERED: LIDOCAINE 1% (LOCAL ANESTH.) PF 5ml SDV ONE (07:34)
[2019-10-13] MEDS ORDERED: MIDAZOLAM HCL 1MG/1ML-2 ML VIAL ONE ×3 (07:39→07:44)
[2019-10-13] MEDS ORDERED: MORPHINE SULF(PF) 0.5MG/ML 10ML VIAL ONE ×2 (07:41→08:35)
[2019-10-13] MEDS ORDERED: ePHEDrine SULFATE 50 MG/ML AMP ONE (07:54)
[2019-10-13] MEDS ORDERED: STERILE WATER 10 ML ONE ×2 (07:54→08:07)
[2019-10-13] MEDS ORDERED: PROPOFOL 10 MG/ML 20 ML IV ONE (08:00)
[2019-10-13] MEDS ORDERED: diphenhdrAMINE HCL 50 MG/1 ML VL ONE (08:03)
[2019-10-13] MEDS ORDERED: METOCLOPRAMIDE HCL 5MG/ml INJ 2ml VIAL ONE (08:03)
[2019-10-13] MEDS ORDERED: PHENYLEPHRINE HCL 10 MG/ML VL ONE (08:07)
[2019-10-13] MEDS ORDERED: diphenhdrAMINE HCL 50 MG/1 ML VL IV PRN (08:30)
[2019-10-13] MEDS ORDERED: ONDANSETRON HCL 4 MG/2 ML VIAL IV PRN ×3 (08:30→09:45)
[2019-10-13] MEDS ORDERED: NALOXONE HCL 0.4 MG/ML VIAL IV PRN ×2 (08:30)
[2019-10-13] MEDS ORDERED: HYDROmorphone HCL 2 MG/ML VL IV PRN ×2 (08:30→09:45)
[2019-10-13] MEDS ORDERED: ePHEDrine SULFATE 50 MG/ML AMP IV PRN (08:30)
[2019-10-13] MEDS ORDERED: LACTATED RINGER'S 1,000 ML IV SCH ×2 (09:36→14:00)
[2019-10-13] MEDS ORDERED: NITROGLYCERIN 0.4 MG SL TAB SL PRN (09:45)
[2019-10-13] MEDS ORDERED: ACETAMINOPHEN 325 MG TAB PO PRN (09:45)
[2019-10-13] MEDS ORDERED: MORPHINE SULF INJ 2 MG/ML SYRINGE 1ML IV PRN (09:45)
[2019-10-13] MEDS ORDERED: BISACODYL 5 MG EC TAB PO PRN (09:45)
[2019-10-13] MEDS ORDERED: ALBUTEROL SULF HFA 90MCG INH 200DOSE IN SCH (09:45)
--- NOTE | 2019-10-13 11:45 | NUR ---
Telemetry admit from [place] JOSUEMARC admitted to Telemetry unit after SBAR received. Patient oriented to Oralia Gandara, primary RN, unit, room, bed, and unit policies regarding patient care and visiting hours. Patient now on continuous telemetry monitoring, tele box #75 and telemetry reading on arrival to unit is sinus bradycardia at 56bpm. Patient placed on bedside oxygen, weighed by bedscale and encouraged to call if they need something. All questions and concerns addressed, patient verbalized understanding. Note:pt is awake and alert, with post op dressing on left hip clean dry and intact. will continue to monitor.
[2019-10-13] MEDS: ENOXAPARIN SOD 40 MG/0.4 ML SYRINGE SC SCH (13:30)
[2019-10-13] MEDS: ALPRAZolam 0.5 MG TAB PO SCH ×2 (13:31→22:17)
[2019-10-13] MEDS: DOCUSATE SOD 100 MG CAP PO SCH ×2 (13:31→22:17)
[2019-10-13] MEDS: DULoxetine HCL 30 MG CAP PO SCH (13:31)
[2019-10-13] MEDS ORDERED: ALBUTEROL SULF 2.5 MG/0.5ML(0.5%) NEB SOLN NEB PRN (14:15)
[2019-10-13] MEDS: SODIUM CHLOR 0.9% PF (SALINE LOCK) 10ML VIAL/SYR IV SCH ×2 (15:47→22:17)
[2019-10-13] MEDS: ceFAZolin 1GM/50ML 50 ML IV SCH ×2 (15:47→22:16)
--- NOTE | 2019-10-13 15:50 | NUR ---
Respiratory note: PLACED PT ON CONTINUOUS POX POST SURGICAL PROCEDURE.
--- NOTE | 2019-10-13 16:01 | NUR ---
low BP paged Dr. Sanchez for BP 85/49mmhg, waiting for call back.
--- NOTE | 2019-10-13 16:04 | NUR ---
DR. WONG CALLED BACK, RECEIVED ORDER FOR BOLUS OF NS 250 MLS, AND REGULATE PRESENT IV LR AT 100MLS /HR. WILL CONTINUE TO MONITOR.
[2019-10-13] MEDS ORDERED: SODIUM CHLORIDE 0.9% 250 ML IV ONE (16:15)
--- NOTE | 2019-10-13 16:50 | NUR ---
LOW BP ATTEMPTED TO CALL DR. NEWMAN ANESTHESIOLOGIST FOR BLOOD PRESSURE 79/48MMHG, LEFT A MESSAGE TO CALL BACK. PAGED DR. WONG, WAITING FOR CALL BACK.
[2019-10-13] MEDS: LACTATED RINGER'S 1,000 ML IV SCH (16:54)
--- NOTE | 2019-10-13 16:57 | NUR ---
DR. WONG CALLED BACK, RECEIVED ORDER FOR ANOTHER BOLUS OF NS 500MLS. WILL CONTINUE TO MONITOR.
[2019-10-13] MEDS ORDERED: SODIUM CHLORIDE 0.9% 500 ML IV ONE (17:00)
--- NOTE | 2019-10-13 17:35 | NUR ---
DR. NEWMAN CALLED, MADE AWARE OF PT'S LOW BP, SHE SAID SHE GAVE VERY MINIMAL DOSE OF DURAMORPH, SHE RECOMMEND TO CALL DR. MANN TO GET ORDER FOR H&h.
--- NOTE | 2019-10-13 18:00 | NUR ---
SPOKE WITH DR. MANN, MADE AWARE OF PT'S LOW BLOOD PRESSURE, RECEIVED ORDER FOR CBC.
[2019-10-13 19:38] LABS: Basophils # (auto) 0 10 ^3/uL (0-0.2); Basophils % (auto) 0.3 % (0.0-2.0); Eosinophils # (auto) 0.1 10 ^3/uL (0-0.8); Eosinophils % (auto) 1.5 % (0.0-7.0); Hematocrit 34.4 % (36.0-46.0); Hemoglobin 11.1 g/dL (12.2-16.2); Lymphocytes # (auto) 1.5 10 ^3/uL (0.4-5.4); Lymphocytes % (auto) 19.4 % (10.0-50.0); Mean Corpuscular Hemoglobin 31.1 pg (28.0-32.0); Mean Corpuscular Hgb Conc. 32.1 g/dL (32.0-36.0); Mean Corpuscular Volume 96.8 fL (80.0-100.0); Monocytes # (auto) 0.7 10 ^3/uL (0-1.3); Monocytes % (auto) 8.9 % (0.0-12.0); Neutrophils # (auto) 5.3 10 ^3/uL (1.6-8.6); Neutrophils % (auto) 69.9 % (37.0-80.0); Platelet Count (auto) 162 10^3/uL (140-450); Red Blood Cells 3.56 10^6/uL (4.0-5.20); Red Cell Distribution Width 14.2 % (11.8-14.3); White Blood Cell 7.6 10^3/uL (4.4-10.8)
--- NOTE | 2019-10-13 21:15 | NUR ---
Respiratory note: ASSESSED PT FOR PRN MED NEB AT THIS TIME, PT DENIES SONB Addendum: 10/13/19 at 2124 by OSCAR RICHARD PT DENIES SOB AT THIS TIME, NO RESP DISTRESS NOTED, NO TX INDICATED. PULSE OX 99% ON 1LNC, HR 78, RR 18, BILATERAL BS DIMINISHED
[2019-10-14] VITALS (7 sets, daily range): BP systolic 88–123; BP diastolic 34–56
[2019-10-14] MEDS: LACTATED RINGER'S 1,000 ML IV SCH ×2 (03:41→12:21)
[2019-10-14] MEDS: SODIUM CHLOR 0.9% PF (SALINE LOCK) 10ML VIAL/SYR IV SCH ×3 (03:41→22:02)
[2019-10-14 06:19] LABS: Basophils # (auto) 0 10 ^3/uL (0-0.2); Basophils % (auto) 0.4 % (0.0-2.0); Eosinophils # (auto) 0.1 10 ^3/uL (0-0.8); Eosinophils % (auto) 1.4 % (0.0-7.0); Hematocrit 32.1 % (36.0-46.0); Hemoglobin 10.8 g/dL (12.2-16.2); Lymphocytes # (auto) 0.9 10 ^3/uL (0.4-5.4); Lymphocytes % (auto) 21.8 % (10.0-50.0); Mean Corpuscular Hemoglobin 31.7 pg (28.0-32.0); Mean Corpuscular Hgb Conc. 33.5 g/dL (32.0-36.0); Mean Corpuscular Volume 94.6 fL (80.0-100.0); Monocytes # (auto) 0.6 10 ^3/uL (0-1.3); Monocytes % (auto) 13.4 % (0.0-12.0); Neutrophils # (auto) 2.7 10 ^3/uL (1.6-8.6); Platelet Count (auto) 131 10^3/uL (140-450); Red Blood Cells 3.39 10^6/uL (4.0-5.20); White Blood Cell 4.3 10^3/uL (4.4-10.8)
[2019-10-14 06:52] LABS: Albumin 2.4 g/dL (3.4-5.0); BUN/Creatinine Ratio 20.4; Bilirubin, Total 0.6 mg/dL (0.2-1.0); Calcium 7.6 mg/dL (8.5-10.1); Total Protein 4.8 g/dL (6.4-8.2)
--- NOTE | 2019-10-14 07:30 | NUR ---
Opening Shift Note Assumed care of patient, who is alert and oriented x4. Respirations are even and unlabored. No S/S of distress/SOB or pain. Dressings to L hip are C/D/I. Bed is low, locked with 2x side rails up. Call light is within reach. Instructed on POC and to call for assist PRN, will continue to monitor for changes Q1hr and PRN.
[2019-10-14] MEDS: ENOXAPARIN SOD 40 MG/0.4 ML SYRINGE SC SCH (09:30)
[2019-10-14] MEDS: DULoxetine HCL 30 MG CAP PO SCH (09:30)
[2019-10-14] MEDS: DOCUSATE SOD 100 MG CAP PO SCH ×2 (09:30→22:02)
[2019-10-14] MEDS: ALPRAZolam 0.5 MG TAB PO SCH ×2 (09:30→22:02)
--- NOTE | 2019-10-14 10:45 | NUR ---
Physical therapy Per PT, patient walked to door and back with complaints of some dizziness. No other issues reported. Will continue to monitor.
--- NOTE | 2019-10-14 14:01 | NUR ---
Dr. Sanchez at bedside Updating patient on POC. Informed MD of patient's latest vital signs (low bp). No new orders received. MD to dc Dilaudid and add Morphine PRN. Will continue to monitor.
[2019-10-14] MEDS ORDERED: MORPHINE SULF INJ 2 MG/ML SYRINGE 1ML IV PRN (14:15)
--- NOTE | 2019-10-14 15:30 | NUR ---
PULSE OX AT BEDSIDE, SPO2 90% ON 2L NC. PT SAYS SHE FEELS GOOD NO INDICATION FOR MED NEB AT THIS TIME. WILL CONTINUE TO MONITOR PT.
--- NOTE | 2019-10-14 15:52 | NUR ---
assessment re: debbie consult for dc planning Patient is a 69 year old female who is alert and oriented. Patients cognitive abilities are intact. Prior to admission patient lived home with family and functioned independently. Patient informed me she is able to care for her own ADLs. Per patient she will return home to her prior living arrangements post discharge and family will transport her home. Patient informed me she has a wheelchair and cane for home use. Patient was admitted for elective hip replacement. Patient will need home health for PT and a fww prior to discharge. I will continue to monitor and follow up as appropriate for any other discharge needs. I informed patient she has a right to speak to a director social regarding all care. I informed patient she has a right to participate in any and all discharge planning. Patient does not have a POA and advanced directive. I have offered patient information on POA and advanced directives. I informed the patient the advantages and benefits of having an Advanced Directive. Patient verbalized understanding and agreed to discharge plan. Addendum: 10/14/19 at 1555 by Manasa BYRNE Amended: Links added.
[2019-10-14] MEDS: KETOROLAC TROMETH 30 MG/ML 1ML VIAL IV PRN ×2 (16:37→22:07)
--- NOTE | 2019-10-14 19:19 | NUR ---
PT ASSESSED FOR PRN MED NEB TX. SPO2 98% ON 2L NC, HR 76. PT DENIES ANY RESPIRATORY DISTRESS. NO TX INDICATED. PT IS AWARE TO HAVE RT PAGED IF TX NEEDED.
--- NOTE | 2019-10-14 23:00 | NUR ---
PATIENT C/O OF LEFT HIP PAIN 10/02 ADMINISTERED TORADOL IV PRESCRIBED. WILL CONTINUE TO MONITOR PATIENT.
[2019-10-15] MEDS: LACTATED RINGER'S 1,000 ML IV SCH ×2 (03:50→08:15)
[2019-10-15 05:00] VITALS: BP 108/69
[2019-10-15 05:44] LABS: Hematocrit 30.2 % (36.0-46.0); Hemoglobin 10.1 g/dL (12.2-16.2)
[2019-10-15] MEDS: SODIUM CHLOR 0.9% PF (SALINE LOCK) 10ML VIAL/SYR IV SCH ×3 (05:51→22:25)
--- NOTE | 2019-10-15 06:30 | NUR ---
REMOVED LAMA ORDERED PER DR MANN. PATIENT HAS BEDPAN AT BEDSIDE AND BEDSIDE COMMODE.
--- NOTE | 2019-10-15 07:30 | NUR ---
Opening Shift Note Assumed care of patient, awake and alert. No S/S of distress/SOB or pain. Instructed on POC and to call for assist PRN, will continue to monitor for changes Q1hr and PRN.
--- NOTE | 2019-10-15 07:51 | NUR ---
RT NOTE: PRN BREATHING TX. NOT INDICATED AT THIS TIME. NO S/S OF RESPIRATORY DISTRESS NOTED. PT. HR 84, RR 16, 92% 2L N/C. PT. AWARE TO NOTIFY RN IF BREATHING TX. IS NEEDED.
[2019-10-15 09:00] VITALS: BP 122/59
--- NOTE | 2019-10-15 10:00 | NUR ---
PT NOTES PT WAS ABLE TO HELP WITH CHANGING HER BED BY LIFTING HER BOTTOMS UP. PT DOESN'T LIKE TURNING AND USING HER ABDUCTOR PILLOW. PT TOLERATED THE ACTIVITY WITHOUT ANY C/O PAIN. DRESSING ON LEFT HIP AND LATERAL LEG DRY AND INTACT.
[2019-10-15] MEDS: DULoxetine HCL 30 MG CAP PO SCH (10:12)
[2019-10-15] MEDS: ALPRAZolam 0.5 MG TAB PO SCH ×2 (10:12→22:24)
[2019-10-15] MEDS: DOCUSATE SOD 100 MG CAP PO SCH ×2 (10:12→22:24)
[2019-10-15] MEDS: ENOXAPARIN SOD 40 MG/0.4 ML SYRINGE SC SCH (10:13)
[2019-10-15 13:00] VITALS: BP 108/57
--- NOTE | 2019-10-15 15:21 | NUR ---
D/C Planning Regarding social service consult for home health physical therapy and walker. Clinical information was reviewed and approved by [facility]. Faxed clinical information to [facility], and [facility]. Per Radha with [facility] they do not have nurse available at this time for physical therapy. Order was redirected to [facility]. Per Rosalba with [facility] they can accepted patient and will be seen within 24-48hrs upon. Per Michelle with [phone] they will deliver walker between 13:00-15:00. Informed TIANNA Prince.
[2019-10-15 16:35] VITALS: BP 117/58
--- NOTE | 2019-10-15 17:50 | NUR ---
REPORT GIVEN TO TIANNA BRANDON.
[2019-10-15 22:00] VITALS: BP 103/63
[2019-10-15] MEDS: HYDROcodone-ACET 5/325MG TAB PO PRN (22:24)
[2019-10-16 05:00] VITALS: BP 111/53
[2019-10-16 07:11] LABS: Hematocrit 28.2 % (36.0-46.0); Hemoglobin 9.5 g/dL (12.2-16.2)
--- NOTE | 2019-10-16 07:50 | NUR ---
Opening Shift Note Assumed care of patient, awake and alert. No S/S of distress/SOB or pain. Instructed on POC and to call for assist PRN, will continue to monitor for changes Q1hr and PRN. Bed locked in lowest position with two side rails up and call light in reach.
[2019-10-16 08:00] VITALS: BP_SYST 105; BP_DIAS 56; BP_DIAS 59
[2019-10-16] MEDS: HYDROcodone-ACET 5/325MG TAB PO PRN (08:05)
--- NOTE | 2019-10-16 08:05 | NUR ---
PAIN PATIENT COMPLAINS OF PAIN TO THE LEFT HIP POST OP . STATES HER PAIN IS A 7 AND WOULD LIKE TO TAKE A NORCO ONLY. WILL MEDICATE ORDERED.
[2019-10-16] MEDS ORDERED: traMADol HCL 50 MG TAB PO PRN (09:00)
[2019-10-16] MEDS: ENOXAPARIN SOD 40 MG/0.4 ML SYRINGE SC SCH (11:00)
[2019-10-16] MEDS: ALPRAZolam 0.5 MG TAB PO SCH ×2 (11:00→21:47)
[2019-10-16] MEDS: DULoxetine HCL 30 MG CAP PO SCH (11:01)
[2019-10-16] MEDS: DOCUSATE SOD 100 MG CAP PO SCH ×2 (11:01→21:47)
--- NOTE | 2019-10-16 11:30 | NUR ---
PATIENT WORKING WITH PT. PER PT PATIENT ABLE TO WALK WITH WALKER 60 FEET.
[2019-10-16 12:00] VITALS: BP 97/56
[2019-10-16] MEDS: KETOROLAC TROMETH 30 MG/ML 1ML VIAL IV SCH ×2 (12:16→17:35)
--- NOTE | 2019-10-16 12:45 | NUR ---
re-assessment Per consult dc planning for AM. Patient to return home with family. Patient will have home health for PT and a fww on discharge. Addendum: 10/16/19 at 1245 by Manasa Harmon Amended: Links added.
[2019-10-16] MEDS: SODIUM CHLOR 0.9% PF (SALINE LOCK) 10ML VIAL/SYR IV SCH ×3 (14:00→21:50)
--- NOTE | 2019-10-16 14:04 | NUR ---
Est energy needs [id number] kcal (30-35 kcal/kg BW 49.6kg) est protein needs 50-60g (1-1.2g/kg BW 49.6kg) will reassess prn. Addendum: 10/16/19 at [address] Amended: Links added.
--- NOTE | 2019-10-16 15:15 | NUR ---
PAGED PT TO WORK WITH PATIENT PER DR WONG'S REQUEST. PER PHYSICAL THERAPY ART HE WILL WORK WITH HER.
[2019-10-16 16:39] VITALS: BP 93/52
[2019-10-16 21:58] VITALS: BP 102/56
[2019-10-17 05:00] VITALS: BP 123/62
[2019-10-17] MEDS: KETOROLAC TROMETH 30 MG/ML 1ML VIAL IV SCH ×2 (06:28)
[2019-10-17] MEDS: SODIUM CHLOR 0.9% PF (SALINE LOCK) 10ML VIAL/SYR IV SCH (06:28)
--- NOTE | 2019-10-17 07:10 | NUR ---
OPENING SHIFT NOTE ASSUMED CARE OF PATIENT FROM ACCOUNTS ADMINISTRATOR RN JEOVANNY. PATIENT IS AWAKE AND ALERT X4. PATIENT HAS NO S/S OF DISTRESS/SOB OR PAIN. INSTRUCTED PATIENT ON POC, PATIENT VERBALIZED UNDERSTANDING. BED IS IN LOWEST POSITION WITH SIDE RAILS RAISED X2, BED WHEELS LOCKED, AND CALL LIGHT IS WITHIN REACH. WILL CONTINUE TO MONITOR.
[2019-10-17 07:58] VITALS: BP 113/60
[2019-10-17 08:00] VITALS: BP 113/60
--- NOTE | 2019-10-17 08:35 | NUR ---
LEFT MESSAGE WITH DR. MANN'S OFFICE REGARDING DRESSING CHANGE. AWAITING CALL BACK.
--- NOTE | 2019-10-17 09:15 | NUR ---
RECEIVED CALL FROM DR. MANN AND PER IT IS OKAY TO CHANGE DRESSING TO A DRY DRESSING. WILL FOLLOW THROUGH WITH ORDERS.
[2019-10-17] MEDS: DULoxetine HCL 30 MG CAP PO SCH (09:33)
[2019-10-17] MEDS: DOCUSATE SOD 100 MG CAP PO SCH (09:33)
[2019-10-17] MEDS: ENOXAPARIN SOD 40 MG/0.4 ML SYRINGE SC SCH (09:34)
[2019-10-17] MEDS: ALPRAZolam 0.5 MG TAB PO SCH (09:35)
[2019-10-17] MEDS: HYDROcodone-ACET 5/325MG TAB PO PRN (09:35)
[2019-10-17 11:10] VITALS: BP 113/60
[2019-10-17 12:00] VITALS: BP 106/58
== END 2019-10-17 14:15 | disposition home health service (06) | DRG 470 ==
LOC: OVERFLOW 06:53 → EDSTATUS 08:00 → TELE-WESTW 12:08
PROVIDERS: ADMIT Orthopaedic Surgery Adult Reconstructive Orthopaedic Surgery; ATTEND Internal Medicine
PROC: 8E0YXBZ Computer Assisted Procedure of Lower Extremity (ICD-10-PCS; 2019-10-13)
PROC: 0SRB06Z Replacement of Left Hip Joint with Oxidized Zirconium on Polyethylene Synthetic Substitute, Open Approach (ICD-10-PCS; principal; 2019-10-13 07:35)
DX: M87.852 Other osteonecrosis, left femur (principal); J44.9 Chronic obstructive pulmonary disease, unspecified; F41.9 Anxiety disorder, unspecified; F32.9 Major depressive disorder, single episode, unspecified; F17.210 Nicotine dependence, cigarettes, uncomplicated; D64.9 Anemia, unspecified; Z20.828 Contact with and (suspected) exposure to other viral communicable diseases; I95.2 Hypotension due to drugs; T41.45XA Adverse effect of unspecified anesthetic, initial encounter; Y92.89 Other specified places as the place of occurrence of the external cause
CPT/HCPCS: 36415; 72170; 80053; 81001; 85014; 85018; 85025; 85610; 85730; 86850; 86900; 86901; 97110; 97116; 97530; G0378; J0131; J0330; J0690; J1885; J2250; J2704

== ENCOUNTER → 2020-01-09 | Outpatient (CLI) | payer OTHER, MEDICARE ==
[2020-01-09 11:40] LABS: Basophils # (auto) 0 10 ^3/uL (0-0.2); Basophils % (auto) 0.6 % (0.0-2.0); Eosinophils # (auto) 0 10 ^3/uL (0-0.8); Eosinophils % (auto) 0.6 % (0.0-7.0); Hematocrit 48.1 % (36.0-46.0); Hemoglobin 15.6 g/dL (12.2-16.2); Lymphocytes # (auto) 1.8 10 ^3/uL (0.4-5.4); Lymphocytes % (auto) 27.6 % (10.0-50.0); Mean Corpuscular Hemoglobin 30.2 pg (28.0-32.0); Mean Corpuscular Hgb Conc. 32.5 g/dL (32.0-36.0); Mean Corpuscular Volume 92.9 fL (80.0-100.0); Monocytes # (auto) 0.5 10 ^3/uL (0-1.3); Monocytes % (auto) 8.2 % (0.0-12.0); Nucleated Red Blood Cells % 0.1 %; Platelet Count (auto) 259 10^3/uL (140-450); Red Blood Cells 5.17 10^6/uL (4.0-5.20); Red Cell Distribution Width 14.5 % (11.8-14.3); White Blood Cell 6.4 10^3/uL (4.4-10.8)
[2020-01-09 12:14] LABS: Albumin 4.1 g/dL (3.4-5.0); Potassium 4.7 mmol/L (3.5-5.1)
[2020-01-09 12:20] LABS: BUN/Creatinine Ratio 22.2; Bilirubin, Total 0.5 mg/dL (0.2-1.0); Calcium 9.8 mg/dL (8.5-10.1); Total Protein 7.3 g/dL (6.4-8.2)
== END | disposition home or self-care (01) ==
LOC: LAB 11:16
PROVIDERS: ATTEND Physician Assistant
DX: J44.9 Chronic obstructive pulmonary disease, unspecified (principal); J96.10 Chronic respiratory failure, unspecified whether with hypoxia or hypercapnia; R53.82 Chronic fatigue, unspecified; E56.9 Vitamin deficiency, unspecified
CPT/HCPCS: 36415; 80053; 80061; 82607; 85025

== ENCOUNTER 2020-01-26 07:47 | Inpatient (IN) | payer OTHER ==
[2020-01-20 13:25] LABS: Basophils # (auto) 0.1 10 ^3/uL (0-0.2); Basophils % (auto) 0.8 % (0.0-2.0); Eosinophils # (auto) 0 10 ^3/uL (0-0.8); Eosinophils % (auto) 0.6 % (0.0-7.0); Hematocrit 47.2 % (36.0-46.0); Hemoglobin 15.9 g/dL (12.2-16.2); Lymphocytes # (auto) 1.4 10 ^3/uL (0.4-5.4); Lymphocytes % (auto) 17.9 % (10.0-50.0); Mean Corpuscular Hemoglobin 30.9 pg (28.0-32.0); Mean Corpuscular Hgb Conc. 33.6 g/dL (32.0-36.0); Mean Corpuscular Volume 91.9 fL (80.0-100.0); Monocytes # (auto) 0.5 10 ^3/uL (0-1.3); Monocytes % (auto) 6.9 % (0.0-12.0); Neutrophils # (auto) 5.7 10 ^3/uL (1.6-8.6); Neutrophils % (auto) 73.8 % (37.0-80.0); Platelet Count (auto) 244 10^3/uL (140-450); Red Blood Cells 5.14 10^6/uL (4.0-5.20); Red Cell Distribution Width 14.8 % (11.8-14.3); White Blood Cell 7.7 10^3/uL (4.4-10.8)
[2020-01-20 13:30] LABS: Urine Bacteria NONE SEEN /hpf (None Seen); Urine Blood Negative /uL (Negative); Urine Mucus FEW (None Seen); Urine Specific Gravity 1.021 (1.001-1.035); Urine WBC 8 /hpf (0 - 5)
[2020-01-20 13:41] LABS: INR 1.03 (0.9-1.15); Partial Thromboplastin Time 24.8 sec (23.0-31.2)
[2020-01-20 13:48] LABS: Albumin 4.2 g/dL (3.4-5.0); Calcium 9.4 mg/dL (8.5-10.1); Potassium 4.5 mmol/L (3.5-5.1)
[2020-01-20 13:51] LABS: BUN/Creatinine Ratio 13.2; Bilirubin, Total 0.5 mg/dL (0.2-1.0); Total Protein 7.3 g/dL (6.4-8.2)
[2020-01-26] VITALS (16 sets, daily range): BP systolic 74–106; BP diastolic 48–63
[~2020-01-26] VITALS: Ht 170.2 cm; Wt 48.8 kg
[2020-01-26] MEDS ORDERED: VANCOMYCIN HCL 1000 MG VL ONE (08:43)
[2020-01-26] MEDS: BUPIVACAINE 0.25% INJ 50ML VIAL ONE ×2 (08:47→10:32)
[2020-01-26] MEDS ORDERED: TRANEXAMIC ACID 20 ML ONE (08:47)
[2020-01-26] MEDS ORDERED: TETRACAINE 1% INJ 2 ML VIAL IJ ONE (08:47)
[2020-01-26] MEDS ORDERED: ceFAZolin 1GM/50ML 50 ML IV ONE (08:47)
[2020-01-26] MEDS ORDERED: ONDANSETRON HCL 4 MG/2 ML VIAL ONE (08:48)
[2020-01-26] MEDS ORDERED: MIDAZOLAM HCL 1MG/1ML-2 ML VIAL ONE ×2 (08:48→09:23)
[2020-01-26] MEDS ORDERED: PROPOFOL 10 MG/ML 20 ML IV ONE (08:48)
[2020-01-26] MEDS ORDERED: EPINEPHrine HCL 1 MG/1 ML AMP ONE (08:48)
[2020-01-26] MEDS ORDERED: BUPIVACAINE/DEXTROSE MPF 0.75% 2 ML AMP IT ONE (08:48)
[2020-01-26] MEDS ORDERED: fentaNYL CITRATE 100 MCG/2 ML VL ONE (08:48)
[2020-01-26] MEDS ORDERED: SODIUM CHLORIDE LOCK 10 ML ONE (08:48)
[2020-01-26] MEDS ORDERED: MORPHINE SULF(PF) 0.5MG/ML 10ML VIAL ONE ×2 (08:48→09:09)
[2020-01-26] MEDS ORDERED: KETOROLAC TROMETH 30 MG/ML 1ML VIAL ONE (09:09)
[2020-01-26] MEDS ORDERED: diphenhdrAMINE HCL 50 MG/1 ML VL IV PRN (09:45)
[2020-01-26] MEDS ORDERED: ONDANSETRON HCL 4 MG/2 ML VIAL IV PRN (09:45)
[2020-01-26] MEDS ORDERED: HYDROmorphone HCL 2 MG/ML VL IV PRN ×2 (09:45→10:30)
[2020-01-26] MEDS ORDERED: MORPHINE SULFATE 4 MG/ML SYR/VIAL IV PRN (09:45)
[2020-01-26] MEDS ORDERED: NALOXONE HCL 0.4 MG/ML VIAL IV PRN (09:45)
[2020-01-26] MEDS ORDERED: ACETAMINOPHEN 325 MG TAB PO PRN (10:30)
[2020-01-26] MEDS ORDERED: ceFAZolin 1GM/50ML 50 ML IV SCH (10:30)
[2020-01-26] MEDS ORDERED: traMADol HCL 50 MG TAB PO PRN (10:30)
[2020-01-26] MEDS ORDERED: NITROGLYCERIN 0.4 MG SL TAB SL PRN (10:30)
[2020-01-26] MEDS ORDERED: MORPHINE SULF INJ 2 MG/ML SYRINGE 1ML IV PRN (10:30)
[2020-01-26] MEDS ORDERED: ENOXAPARIN SOD 30 MG/0.3 ML SYRINGE SC ONE (10:45)
[2020-01-26] MEDS ORDERED: DULoxetine HCL 30 MG CAP PO ONE (10:45)
[2020-01-26] MEDS ORDERED: ALBUTEROL SULF HFA 90MCG INH 200DOSE IN SCH (12:00)
[2020-01-26] MEDS: LACTATED RINGER'S 1,000 ML IV SCH ×2 (12:50→21:54)
[2020-01-26] MEDS: SODIUM CHLOR 0.9% PF (SALINE LOCK) 10ML VIAL/SYR IV SCH ×2 (14:00→21:54)
--- NOTE | 2020-01-26 14:00 | NUR ---
Telemetry admit from [facility] JOSUEMARC Truong admitted to Telemetry unit after SBAR received. Patient oriented to GREGORY CORCORAN RN primary RN, [place] unit, room 279, bed B, and unit policies regarding patient care and visiting hours. Patient now on continuous telemetry monitoring, tele box #74 and telemetry reading on arrival to unit is sinus rhythm. Patient placed on bedside oxygen 2L NC, continuous pulse ox and q1h blood pressure monitor. Waddell catheter is draining clear yellow urine to gravity with no kinks in the line. [facility] and encouraged to call if they need something. All questions and concerns addressed, patient verbalized understanding.
--- NOTE | 2020-01-26 19:30 | NUR ---
Opening Shift Note Assumed care of patient, awake and alert x4. No S/S of distress/SOB or pain. Patient is aware of current duramorph hourly assessment for 24 hours after her surgery. Bag #1 of 3 of Ancef is infusing. Call light is within reach, side rails up x2, bed is in the lowest position. Instructed on POC and to call for assist PRN, will continue to monitor for changes Q1hr and PRN.
--- NOTE | 2020-01-26 19:51 | NUR ---
Spoke with Mariella in Pharmacy, she is going to adjust the Ancef schedule by 6 hours due to the Ancef having just been administered.
[2020-01-26] MEDS: HYDROcodone-ACET 5/325MG TAB PO PRN (21:55)
[2020-01-26] MEDS: ALPRAZolam 0.5 MG TAB PO SCH (22:24)
[2020-01-26] MEDS ORDERED: ALBUTEROL SULF 2.5 MG/0.5ML(0.5%) NEB SOLN NEB PRN (23:45)
[2020-01-27] VITALS (21 sets, daily range): BP systolic 90–109; BP diastolic 47–62
[2020-01-27] MEDS: ceFAZolin 1GM/50ML 50 ML IV SCH ×2 (01:44→08:32)
--- NOTE | 2020-01-27 02:05 | NUR ---
Respiratory note: NO PRN TX GIVEN AT THIS TIME, NO SOB NOTED. PT SLEEPING COMFORTABLY ON 1L N/C, SPO2 97%, RR 16, HR 63.
[2020-01-27 06:11] LABS: Hematocrit 35.6 % (36.0-46.0)
[2020-01-27 06:33] LABS: Potassium 3.9 mmol/L (3.5-5.1)
--- NOTE | 2020-01-27 06:40 | NUR ---
Respiratory note: Respiratory note: PT ASSESSED. PT FOUND ON 1 LPM HR 81, RR 18, SP02 96%. PT AWAKE ALERT AND RESPONSIVE. PT IN NO DISTRESS AT THIS TIME. NO INDICATION FOR MED NEB AT THIS TIME. PT AWARE TO HAVE RT PAGED FOR SOB.
[2020-01-27 06:41] LABS: Albumin 2.8 g/dL (3.4-5.0); Bilirubin, Total 0.5 mg/dL (0.2-1.0); Calcium 8.2 mg/dL (8.5-10.1); Total Protein 4.9 g/dL (6.4-8.2)
[2020-01-27] MEDS: SODIUM CHLOR 0.9% PF (SALINE LOCK) 10ML VIAL/SYR IV SCH ×3 (06:52→22:05)
[2020-01-27] MEDS: LACTATED RINGER'S 1,000 ML IV SCH ×2 (06:52→16:30)
[2020-01-27] MEDS: DULoxetine HCL 30 MG CAP PO SCH (10:04)
[2020-01-27] MEDS: ENOXAPARIN SOD 30 MG/0.3 ML SYRINGE SC SCH (10:08)
[2020-01-27] MEDS: ALPRAZolam 0.5 MG TAB PO SCH ×2 (10:08→22:05)
--- NOTE | 2020-01-27 12:19 | NUR ---
Nutrition Consult/Assessment Note please see attached link for complete assessment Est Energy needs IBW 61 [id number] kcals (25-30 kcal/kgIBW), Est Protein needs: 61-73 gms/day (1.0-1.2 gm/kgIBW). Will continue to monitor and reassess prn. Addendum: 01/27/20 at [address] Amended: Links added.
[2020-01-27] MEDS: HYDROmorphone HCL 2 MG/ML VL IV PRN (13:31)
--- NOTE | 2020-01-27 13:33 | NUR ---
Waddell catheter dc'd Order to discontinue Waddell catheter. Waddell dc'd with clean technique following deflation of balloon. Patient tolerated well with no complaints of pain. 350ML clear urine noted in bag. Patient assisted to toilet ambulated well. Continue care.
--- NOTE | 2020-01-27 19:20 | NUR ---
Respiratory note: PT ASSESSED FOR PRN MED NEB TX. HR 72, RR 16, SPO2 92% ON RA. NO S/S OF ANY RESPIRATORY DISTRESS NOTED. ADVISED PT TO CALL IF TX IS NEEDED. RT NAME AND PAGER NUMBER WRITTEN ON PT BOARD.
--- NOTE | 2020-01-27 19:30 | NUR ---
Opening Shift Note Assumed care of patient, awake and alert x4. No S/S of distress/SOB or pain. Call light is within reach, side rails up x2, bed is in the lowest position. Instructed on POC and to call for assist PRN, will continue to monitor for changes Q1hr and PRN.
[2020-01-28] MEDS: HYDROmorphone HCL 2 MG/ML VL IV PRN (00:13)
[2020-01-28 05:00] VITALS: BP 100/53
[2020-01-28] MEDS: SODIUM CHLOR 0.9% PF (SALINE LOCK) 10ML VIAL/SYR IV SCH ×3 (05:45→22:03)
[2020-01-28] MEDS: LACTATED RINGER'S 1,000 ML IV SCH (05:45)
[2020-01-28 06:59] LABS: Hematocrit 34.9 % (36.0-46.0); Hemoglobin 11.7 g/dL (12.2-16.2)
--- NOTE | 2020-01-28 07:30 | NUR ---
Respiratory note: PT IS AWAKE, AND ALERT. NO RESPIRATORY DISTRESS NOTED. SPO2 95%, HR 79, RR 18, BS CLEAR BILATERALLY. PRN MEDNEB TX NOT INDICATED AT THIS TIME. PT INFORMED TO PUSH CALL BUTTON IF INCREASED WOB, SOB, OR WHEEZING OCCURS.
[2020-01-28 09:00] VITALS: BP 106/53
[2020-01-28] MEDS: DULoxetine HCL 30 MG CAP PO SCH (09:59)
[2020-01-28] MEDS: ENOXAPARIN SOD 30 MG/0.3 ML SYRINGE SC SCH (09:59)
[2020-01-28] MEDS: ALPRAZolam 0.5 MG TAB PO SCH ×3 (10:00→23:31)
--- NOTE | 2020-01-28 11:04 | NUR ---
at bedside MD Sanchez at bedside, pt states she has pain to her rib area. Awaiting new orders for CXR. Cont to monitor
[2020-01-28] MEDS ORDERED: HYDROmorphone HCL 2 MG/ML VL IV PRN (11:15)
--- NOTE | 2020-01-28 11:17 | NUR ---
assessment Patient is a 69 year old female who is alert and oriented. Prior to admission patient lived home with family and functioned independently. Patient informed me she is able to care for her own ADLs. Per patient she will return home to her prior living arrangements post discharge and family will transport her home. Patient informed me she has a fww, wheelchair and cane for home use. Patient uses [facility] Broder[facility] for PCP. Patient was admitted for hip revision. Patient will need home health for PT on discharge. Patient is ambulating around the nurses station with no issues. Patient has no safety concerns regarding returning home on discharge. I will continue to monitor and follow up as appropriate for any other discharge needs. I informed patient she has a right to speak to a social worker psychiatric regarding all care. I informed patient she has a right to participate in any and all discharge planning. Patient does not have a POA and advanced directive. I have offered patient information on POA and advanced directives. I informed the patient the advantages and benefits of having an Advanced Directive. Patient verbalized understanding and agreed to discharge plan. Addendum: 01/28/20 at 1121 by Manasa BYRNE Amended: Links added.
[2020-01-28 13:00] VITALS: BP 109/57
--- NOTE | 2020-01-28 15:22 | NUR ---
D/C planning Per social service consult for home health physical therapy. Clinical information was reviewed and approved by [facility]. faxed clinical information to [facility] and [facility]. Per Rosalba with [facility] patient has been accepted and service to start within 24-48hrs upon d.c day.
[2020-01-28 16:51] VITALS: BP 124/64
[2020-01-28] MEDS: HYDROcodone-ACET 5/325MG TAB PO PRN ×2 (17:37→22:09)
--- NOTE | 2020-01-28 19:00 | NUR ---
Patient care endorsed to Kala hood. Patient sitting up in bed no acute distress or sob noted. Call light within reach. Dressing c/d/i.
--- NOTE | 2020-01-28 19:30 | NUR ---
Opening Shift Note Assumed care of patient, awake and alert. No S/S of distress/SOB or pain. Dressing to left hip clean,dry, and intact. Instructed on POC and to call for assist PRN, will continue to monitor for changes Q1hr and PRN.
[2020-01-28 22:00] VITALS: BP 107/58
[2020-01-29 05:00] VITALS: BP 107/60
[2020-01-29 06:24] LABS: Hemoglobin 12.2 g/dL (12.2-16.2)
[2020-01-29] MEDS: SODIUM CHLOR 0.9% PF (SALINE LOCK) 10ML VIAL/SYR IV SCH ×3 (06:39→22:10)
[2020-01-29 08:03] VITALS: BP 110/63
[2020-01-29] MEDS: ENOXAPARIN SOD 30 MG/0.3 ML SYRINGE SC SCH (09:30)
[2020-01-29] MEDS: ALPRAZolam 0.5 MG TAB PO SCH ×2 (09:30→22:10)
[2020-01-29] MEDS: DULoxetine HCL 30 MG CAP PO SCH (09:30)
[2020-01-29 12:30] VITALS: BP 110/62
[2020-01-29 16:20] VITALS: BP 111/56
--- NOTE | 2020-01-29 19:55 | NUR ---
Opening Shift Note Assumed care of patient. Awake, alert and oriented x4. No S/S of distress/SOB or pain. Instructed on POC and to call for assist PRN. Dressing to left hip is c/d/i. Bed locked, in lowest position, call light in reach, side rails up x2, bed alarm on for safety. Will continue to monitor for changes Q1hr and PRN.
[2020-01-29 22:00] VITALS: BP 117/57
[2020-01-29] MEDS: HYDROcodone-ACET 5/325MG TAB PO PRN (22:24)
[2020-01-30 05:00] VITALS: BP 119/58
[2020-01-30] MEDS: SODIUM CHLOR 0.9% PF (SALINE LOCK) 10ML VIAL/SYR IV SCH (06:25)
[2020-01-30] MEDS: HYDROcodone-ACET 5/325MG TAB PO PRN (06:43)
[2020-01-30 08:12] VITALS: BP 106/57
[2020-01-30 08:32] VITALS: BP 106/57
[2020-01-30] MEDS: ENOXAPARIN SOD 30 MG/0.3 ML SYRINGE SC SCH (10:24)
[2020-01-30] MEDS: DULoxetine HCL 30 MG CAP PO SCH (10:24)
[2020-01-30] MEDS: ALPRAZolam 0.5 MG TAB PO SCH (10:24)
--- NOTE | 2020-01-30 14:10 | NUR ---
PATIENT WAS WALKING IN HALLWAY INDEPENDENTLY WITH FRONT WHEEL WALKER. Addendum: 01/30/20 at 1411 by EM HOU PTT Amended: Links added.
--- NOTE | 2020-01-30 14:46 | NUR ---
Nutrition Followup Note Wt 48.8kg Pt was sleeping at time of rounds with no family at bedside. Pt is a previous consult for unint wt loss prior to admission. Pt wt is currently 8kg higher than admission wt, consider reweighing pt to assess accuracy. Pt with a good appetite aeb pt with an avg po intake of 87.5% x 2 days per Rn note. Est Energy needs IBW 61 [id number] kcals (25-30 kcal/kgIBW), Est Protein needs: 61-73 gms/day (1.0-1.2 gm/kgIBW). Will continue to monitor and reassess prn. Labs: Ca 8.2L, Alb 2.8L BM: pt with 1 BM 01/29 per Rn note Skin: BS 19 low risk, full details in respiratory care specialist note PES: Increased nutrient needs r/t chronic medical condition aeb pt`s underwt and reporting wt loss Comments 1)consider ensure enlive 1 carton tid 2) continue assistance with meals 3) continue current plan of care Expected Outcomes/Goals: pt will not lose anymore wt pt will have adequate PO F/u mod 3-5 days
--- NOTE | 2020-01-30 16:32 | NUR ---
Discharge instructions given as ordered. Encourage to follow up with PMD as instructed. All questions and concerns addressed. Patient verbalized understanding. Medication reconciliation form completed and copy given to patient. Home medications held in Pharmacy returned to patient, IV removed with catheter intact, pressure dressing applied, PT TAKEN OUT To vehicle via wheelchair with all personal belongings, accompanied by staff and family member. No distress noted at time of departure.
== END 2020-01-30 14:30 | disposition home health service (06) | DRG 468 ==
LOC: OVERFLOW 07:47 → WEST WING 12:17 → EDSTATUS 15:16 → TELE-WESTW 17:32 → WEST WING 01-29 13:17
PROVIDERS: ADMIT Orthopaedic Surgery Adult Reconstructive Orthopaedic Surgery; ATTEND Internal Medicine
PROC: 0SPS0JZ Removal of Synthetic Substitute from Left Hip Joint, Femoral Surface, Open Approach (ICD-10-PCS; 2020-01-26)
PROC: 0SRS0JA Replacement of Left Hip Joint, Femoral Surface with Synthetic Substitute, Uncemented, Open Approach (ICD-10-PCS; principal; 2020-01-26 09:04)
DX: T84.091A Other mechanical complication of internal left hip prosthesis, initial encounter (principal); J44.9 Chronic obstructive pulmonary disease, unspecified; M16.12 Unilateral primary osteoarthritis, left hip; F41.9 Anxiety disorder, unspecified; F17.210 Nicotine dependence, cigarettes, uncomplicated; Y79.2 Prosthetic and other implants, materials and accessory orthopedic devices associated with adverse incidents; M21.70 Unequal limb length (acquired), unspecified site; X58.XXXA Exposure to other specified factors, initial encounter; Z20.828 Contact with and (suspected) exposure to other viral communicable diseases
CPT/HCPCS: 36415; 71045; 72170; 80053; 81001; 85014; 85018; 85025; 85610; 85730; 86850; 86900; 86901; 97110; 97116; 97163; 97530; A4565; G0378; J0171; J0690; J1885; J2250; J2405; J2704; J3490

== ENCOUNTER 2020-06-28 08:34 | Inpatient (IN) | payer OTHER ==
[2020-06-24 15:41] LABS: Urine WBC None Seen /hpf (0 - 5)
[2020-06-24 15:46] LABS: Basophils # (auto) 0.1 10 ^3/uL (0-0.2); Basophils % (auto) 0.8 % (0.0-2.0); Eosinophils # (auto) 0 10 ^3/uL (0-0.8); Eosinophils % (auto) 0.6 % (0.0-7.0); Hematocrit 45.6 % (36.0-46.0); Hemoglobin 15.5 g/dL (12.2-16.2); Lymphocytes # (auto) 1.3 10 ^3/uL (0.4-5.4); Lymphocytes % (auto) 20.9 % (10.0-50.0); Mean Corpuscular Hemoglobin 31.9 pg (28.0-32.0); Mean Corpuscular Volume 93.8 fL (80.0-100.0); Monocytes # (auto) 0.4 10 ^3/uL (0-1.3); Monocytes % (auto) 6.9 % (0.0-12.0); Neutrophils # (auto) 4.5 10 ^3/uL (1.6-8.6); Neutrophils % (auto) 70.8 % (37.0-80.0); Red Blood Cells 4.86 10^6/uL (4.0-5.20); Red Cell Distribution Width 14.1 % (11.8-14.3); White Blood Cell 6.3 10^3/uL (4.4-10.8)
[2020-06-24 15:51] LABS: Urine Bacteria NONE SEEN /hpf (None Seen); Urine Blood Negative /uL (Negative); Urine Specific Gravity 1.004 (1.001-1.035)
[2020-06-24 15:59] LABS: Partial Thromboplastin Time 24.8 sec (23.0-31.2)
[2020-06-24 16:13] LABS: Albumin 4.2 g/dL (3.4-5.0); Calcium 9.2 mg/dL (8.5-10.1); Potassium 4.1 mmol/L (3.5-5.1)
[2020-06-24 16:15] LABS: BUN/Creatinine Ratio 17.2
[2020-06-24 16:17] LABS: Bilirubin, Total 0.6 mg/dL (0.2-1.0); Total Protein 7.6 g/dL (6.4-8.2)
[~2020-06-28] VITALS: Ht 167.6 cm; Wt 48.7 kg
[~2020-06-28 08:34] MED LIST changes: -DULO30CA PO
[2020-06-28] MEDS ORDERED: fentaNYL CITRATE 100 MCG/2 ML VL ONE (08:57)
[2020-06-28] MEDS ORDERED: SODIUM CHLORIDE LOCK 10 ML ONE (08:57)
[2020-06-28] MEDS ORDERED: MORPHINE SULF PF 2 MG/2 ML SYRG ONE (08:57)
[2020-06-28] MEDS ORDERED: PROPOFOL 10 MG/ML 20 ML IV ONE (08:57)
[2020-06-28] MEDS ORDERED: MIDAZOLAM HCL 2MG/2ML 2ml VIAL (1mg/ml) ONE (08:57)
[2020-06-28] MEDS ORDERED: ONDANSETRON HCL 4 MG/2 ML VIAL ONE (08:57)
[2020-06-28] MEDS ORDERED: CELECOXIB 100 MG CAP PO ONE (09:00)
[2020-06-28] MEDS ORDERED: ACETAMINOPHEN IV 1000 MG/100ML (10MG/ML) IV ONE (09:00)
[2020-06-28] MEDS ORDERED: PREGABALIN CAPSULE 75 MG CAP PO ONE (09:00)
[2020-06-28] MEDS ORDERED: ACETAMINOPHEN IV 100 ML IV ONE (09:11)
[2020-06-28] MEDS ORDERED: ceFAZolin 1GM/50ML 50 ML IV ONE (09:11)
[2020-06-28] MEDS ORDERED: KETOROLAC TROMETH 30 MG/ML 1ML VIAL ONE (09:50)
[2020-06-28] MEDS ORDERED: VANCOMYCIN HCL 1000 MG VL ONE (09:50)
[2020-06-28] MEDS ORDERED: TETRACAINE 1% INJ 2 ML VIAL IJ ONE (09:51)
[2020-06-28] MEDS ORDERED: TRANEXAMIC ACID 20 ML ONE (09:51)
[2020-06-28] MEDS ORDERED: BUPIVACAINE 0.25% INJ 50ML VIAL ONE (09:51)
[2020-06-28] MEDS ORDERED: BUPIVACAINE/DEXTROSE MPF 0.75% 2 ML AMP IT ONE (10:05)
[2020-06-28] MEDS ORDERED: BISACODYL 5 MG EC TAB PO PRN (12:00)
[2020-06-28] MEDS ORDERED: HYDROcodone-ACET 5/325MG TAB PO PRN (12:00)
[2020-06-28] MEDS: ceFAZolin 1GM/50ML 50 ML IV SCH ×2 (12:00→18:00)
[2020-06-28] MEDS ORDERED: ALBUTEROL SULF HFA 90MCG INH 200DOSE IN SCH (12:00)
[2020-06-28] MEDS ORDERED: ACETAMINOPHEN 325 MG TAB PO PRN (12:00)
[2020-06-28] MEDS ORDERED: ONDANSETRON HCL 4 MG/2 ML VIAL IV PRN ×2 (12:00→13:00)
[2020-06-28] MEDS ORDERED: MORPHINE SULFATE INJECTION 2 MG/ML SYRG IV PRN ×2 (12:00→18:45)
[2020-06-28] MEDS ORDERED: NITROGLYCERIN 0.4 MG SL TAB SL PRN ×2 (12:00→18:45)
[2020-06-28] MEDS: LACTATED RINGER'S 1,000 ML IV SCH ×2 (12:00→22:00)
[2020-06-28] MEDS ORDERED: DULoxetine HCL 30 MG CAP PO ONE (12:30)
[2020-06-28] MEDS ORDERED: diphenhdrAMINE HCL 50 MG/1 ML VL IV PRN (13:00)
[2020-06-28] MEDS ORDERED: NALOXONE HCL 0.4 MG/ML VIAL IV PRN (13:00)
[2020-06-28] MEDS ORDERED: HYDROmorphone HCL 2 MG/ML VL IV PRN (13:00)
[2020-06-28] MEDS ORDERED: MORPHINE SULFATE 4 MG/ML SYR/VIAL IV PRN (13:00)
[2020-06-28] MEDS: SODIUM CHLOR 0.9% PF (SALINE LOCK) 10ML VIAL/SYR IV SCH ×2 (14:00→22:26)
[2020-06-28] MEDS: ALPRAZolam 0.5 MG TAB PO SCH ×2 (14:00→22:28)
[2020-06-28] MEDS ORDERED: PHENYLEPHRINE HCL 10 MG/ML VL IV ONE ×2 (14:45→15:15)
[2020-06-28] MEDS ORDERED: HYDROCORTISONE SOD SUCC 100 MG/2ML INJ VIAL ONE (15:14)
[2020-06-28] MEDS ORDERED: ALBUMIN 5% 250 ML IV ONE ×2 (17:25→17:30)
[2020-06-28] MEDS ORDERED: ePHEDrine SULFATE 50 MG/ML AMP IV PRN (17:30)
[2020-06-28 17:55] LABS: Basophils # (auto) 0 10 ^3/uL (0-0.2); Basophils % (auto) 0.4 % (0.0-2.0); Eosinophils # (auto) 0.1 10 ^3/uL (0-0.8); Eosinophils % (auto) 0.8 % (0.0-7.0); Hematocrit 38.2 % (36.0-46.0); Hemoglobin 12.8 g/dL (12.2-16.2); Lymphocytes % (auto) 13.7 % (10.0-50.0); Mean Corpuscular Hemoglobin 31.6 pg (28.0-32.0); Mean Corpuscular Hgb Conc. 33.6 g/dL (32.0-36.0); Mean Corpuscular Volume 93.8 fL (80.0-100.0); Monocytes # (auto) 0.6 10 ^3/uL (0-1.3); Monocytes % (auto) 8.6 % (0.0-12.0); Neutrophils # (auto) 5.7 10 ^3/uL (1.6-8.6); Neutrophils % (auto) 76.5 % (37.0-80.0); Nucleated Red Blood Cells % 0.1 %; Red Blood Cells 4.07 10^6/uL (4.0-5.20); Red Cell Distribution Width 14.3 % (11.8-14.3); White Blood Cell 7.4 10^3/uL (4.4-10.8)
[2020-06-28 18:19] LABS: Albumin 2.9 g/dL (3.4-5.0); Calcium 8.3 mg/dL (8.5-10.1); Potassium 4.2 mmol/L (3.5-5.1)
[2020-06-28 18:22] LABS: BUN/Creatinine Ratio 17.5; Bilirubin, Total 0.6 mg/dL (0.2-1.0)
[2020-06-28] MEDS ORDERED: NOREPINEPHRINE 8 MG/250ML KIT 250 ML IV SCH (18:30)
[2020-06-28] MEDS ORDERED: NOREPINEPHRINE 8 MG/250ML KIT 250 ML IV ONE (18:36)
[2020-06-28] MEDS ORDERED: ALBUTEROL SULF 90 MCG IN PRN (20:00)
[2020-06-28] MEDS: SODIUM CHLORIDE 0.9% 1,000 ML IV SCH (20:15)
[2020-06-28 21:00] VITALS: BP 108/50
[2020-06-28 21:30] VITALS: BP 102/57
[2020-06-28 22:00] VITALS: BP 99/53
[2020-06-28] MEDS: DOCUSATE SOD 100 MG CAP PO SCH (22:27)
[2020-06-28 22:30] VITALS: BP 102/55
[2020-06-28] MEDS: HYDROCORTISONE SOD SUCC 100 MG/2ML INJ VIAL IV SCH (22:30)
[2020-06-28 23:00] VITALS: BP 87/47
[2020-06-28 23:30] VITALS: BP 94/53
[2020-06-29] VITALS (19 sets, daily range): BP systolic 86–118; BP diastolic 40–75
[2020-06-29] MEDS: ceFAZolin 1GM/50ML 50 ML IV SCH
[2020-06-29 04:16] LABS: Hematocrit 34.2 % (36.0-46.0); Hemoglobin 11.6 g/dL (12.2-16.2)
[2020-06-29 04:37] LABS: Calcium 8.1 mg/dL (8.5-10.1); Potassium 4.4 mmol/L (3.5-5.1)
[2020-06-29 04:42] LABS: BUN/Creatinine Ratio 15.1; Bilirubin, Total 0.9 mg/dL (0.2-1.0); Total Protein 5.1 g/dL (6.4-8.2)
[2020-06-29] MEDS: SODIUM CHLOR 0.9% PF (SALINE LOCK) 10ML VIAL/SYR IV SCH ×3 (06:00→21:11)
[2020-06-29] MEDS: ALPRAZolam 0.5 MG TAB PO SCH ×3 (06:00→21:11)
[2020-06-29] MEDS: HYDROCORTISONE SOD SUCC 100 MG/2ML INJ VIAL IV SCH (07:00)
[2020-06-29] MEDS: UMECLIDINIUM VILANTEROL IN SCH (07:00)
[2020-06-29] MEDS: LACTATED RINGER'S 1,000 ML IV SCH (08:00)
[2020-06-29] MEDS: DULoxetine HCL 30 MG CAP PO SCH (10:13)
[2020-06-29] MEDS: DOCUSATE SOD 100 MG CAP PO SCH ×2 (10:13→21:11)
[2020-06-29] MEDS: ENOXAPARIN SOD 30 MG/0.3 ML SYRINGE SC SCH (10:14)
[2020-06-29] MEDS: SODIUM CHLORIDE 0.9% 1,000 ML IV SCH ×2 (10:19→21:12)
[2020-06-29] MEDS: MORPHINE SULFATE 4 MG/ML SYR/VIAL IV PRN (23:32)
[2020-06-30 05:00] VITALS: BP 101/52
[2020-06-30] MEDS: ALPRAZolam 0.5 MG TAB PO SCH ×3 (05:32→21:31)
[2020-06-30] MEDS: SODIUM CHLOR 0.9% PF (SALINE LOCK) 10ML VIAL/SYR IV SCH ×3 (05:32→21:21)
[2020-06-30 07:36] LABS: Basophils # (auto) 0 10 ^3/uL (0-0.2); Basophils % (auto) 0.4 % (0.0-2.0); Eosinophils # (auto) 0 10 ^3/uL (0-0.8); Eosinophils % (auto) 0.9 % (0.0-7.0); Hematocrit 26.9 % (36.0-46.0); Hemoglobin 9.4 g/dL (12.2-16.2); Lymphocytes # (auto) 1.1 10 ^3/uL (0.4-5.4); Lymphocytes % (auto) 27.8 % (10.0-50.0); Mean Corpuscular Hemoglobin 32.3 pg (28.0-32.0); Mean Corpuscular Hgb Conc. 34.8 g/dL (32.0-36.0); Mean Corpuscular Volume 92.7 fL (80.0-100.0); Monocytes # (auto) 0.5 10 ^3/uL (0-1.3); Monocytes % (auto) 11.1 % (0.0-12.0); Neutrophils # (auto) 2.5 10 ^3/uL (1.6-8.6); Neutrophils % (auto) 59.8 % (37.0-80.0); Red Cell Distribution Width 13.7 % (11.8-14.3); White Blood Cell 4.1 10^3/uL (4.4-10.8)
[2020-06-30 07:53] LABS: Potassium 3.4 mmol/L (3.5-5.1)
[2020-06-30 07:57] LABS: Magnesium 1.9 mg/dL (1.6-2.6); Phosphorus 1.8 mg/dL (2.5-4.90)
[2020-06-30 08:30] VITALS: BP 102/52
[2020-06-30] MEDS: UMECLIDINIUM VILANTEROL IN SCH (09:22)
[2020-06-30] MEDS: DULoxetine HCL 30 MG CAP PO SCH (09:22)
[2020-06-30] MEDS: ENOXAPARIN SOD 30 MG/0.3 ML SYRINGE SC SCH (09:22)
[2020-06-30] MEDS: DOCUSATE SOD 100 MG CAP PO SCH ×2 (09:22→21:31)
[2020-06-30] MEDS: MORPHINE SULFATE 4 MG/ML SYR/VIAL IV PRN ×2 (09:23→20:42)
[2020-06-30] MEDS ORDERED: POTASSIUM PHOSPHATE 26.4 MEQ in SODIUM CHL 0.9% 100 ML IV ONE ×2 (11:00→18:00)
[2020-06-30] MEDS: SODIUM CHLORIDE 0.9% 1,000 ML IV SCH (12:00)
[2020-06-30 12:30] VITALS: BP 103/60
[2020-06-30] MEDS: MAGNESIUM SULFATE 1GM/100ML 100 ML IV SCH ×2 (13:00→13:56)
[2020-06-30 17:00] VITALS: BP 110/66
[2020-06-30] MEDS ORDERED: MAGNESIUM SULFATE 1GM/100ML 100 ML IV SCH (17:00)
[2020-06-30 20:00] VITALS: BP 108/66
[2020-07-01] MEDS: SODIUM CHLORIDE 0.9% 1,000 ML IV SCH ×2 (01:20→14:40)
[2020-07-01] MEDS: ALPRAZolam 0.5 MG TAB PO SCH ×2 (05:24→14:00)
[2020-07-01] MEDS: SODIUM CHLOR 0.9% PF (SALINE LOCK) 10ML VIAL/SYR IV SCH ×2 (05:24→14:00)
[2020-07-01 05:28] VITALS: BP 117/59
[2020-07-01 06:48] LABS: Basophils # (auto) 0 10 ^3/uL (0-0.2); Basophils % (auto) 0.4 % (0.0-2.0); Eosinophils # (auto) 0.1 10 ^3/uL (0-0.8); Eosinophils % (auto) 1.7 % (0.0-7.0); Hematocrit 29.5 % (36.0-46.0); Hemoglobin 10.1 g/dL (12.2-16.2); Lymphocytes % (auto) 26.5 % (10.0-50.0); Mean Corpuscular Hemoglobin 31.7 pg (28.0-32.0); Mean Corpuscular Hgb Conc. 34.2 g/dL (32.0-36.0); Mean Corpuscular Volume 92.7 fL (80.0-100.0); Monocytes # (auto) 0.3 10 ^3/uL (0-1.3); Monocytes % (auto) 8.7 % (0.0-12.0); Neutrophils # (auto) 2.4 10 ^3/uL (1.6-8.6); Neutrophils % (auto) 62.7 % (37.0-80.0); Red Blood Cells 3.19 10^6/uL (4.0-5.20); Red Cell Distribution Width 14.5 % (11.8-14.3); White Blood Cell 3.9 10^3/uL (4.4-10.8)
[2020-07-01] MEDS: UMECLIDINIUM VILANTEROL IN SCH (06:53)
[2020-07-01 09:00] VITALS: BP 116/40
[2020-07-01] MEDS: DULoxetine HCL 30 MG CAP PO SCH (10:35)
[2020-07-01] MEDS: DOCUSATE SOD 100 MG CAP PO SCH (10:35)
[2020-07-01] MEDS: ENOXAPARIN SOD 30 MG/0.3 ML SYRINGE SC SCH (10:36)
[2020-07-01 13:00] VITALS: BP 121/75
[2020-07-01 14:45] VITALS: BP 121/75
== END 2020-07-01 17:35 | disposition home health service (06) | DRG 470 ==
LOC: OVERFLOW 08:34 → EDSTATUS 10:15 → ICU WEST 19:46 → TELE-WESTW 06-29 17:14
PROVIDERS: ADMIT Orthopaedic Surgery Adult Reconstructive Orthopaedic Surgery; ATTEND Internal Medicine
PROC: 8E0Y0CZ Robotic Assisted Procedure of Lower Extremity, Open Approach (ICD-10-PCS; 2020-06-28)
PROC: 0SR90J9 Replacement of Right Hip Joint with Synthetic Substitute, Cemented, Open Approach (ICD-10-PCS; principal; 2020-06-28 10:15)
DX: M87.850 Other osteonecrosis, pelvis (principal); J44.9 Chronic obstructive pulmonary disease, unspecified; I95.9 Hypotension, unspecified; M16.11 Unilateral primary osteoarthritis, right hip; Z96.641 Presence of right artificial hip joint; Z20.822 Contact with and (suspected) exposure to COVID-19
CPT/HCPCS: 36415; 72170; 80048; 80053; 81001; 82533; 83735; 84100; 84443; 85014; 85018; 85025; 85610; 85730; 86850; 86900; 86901; 87081; 93306; 97163; A4565; C1776; G0378; J0131; J0690; J1885; J2250; J2405; J2704; J3490

== ENCOUNTER → 2020-08-05 | Outpatient (CLI) | payer OTHER ==
[2020-08-05 12:56] LABS: Basophils # (auto) 0 10 ^3/uL (0-0.2); Basophils % (auto) 0.8 % (0.0-2.0); Eosinophils # (auto) 0 10 ^3/uL (0-0.8); Eosinophils % (auto) 0.6 % (0.0-7.0); Hematocrit 43.6 % (36.0-46.0); Hemoglobin 14.9 g/dL (12.2-16.2); Lymphocytes # (auto) 1.4 10 ^3/uL (0.4-5.4); Lymphocytes % (auto) 24.1 % (10.0-50.0); Mean Corpuscular Hemoglobin 32.1 pg (28.0-32.0); Mean Corpuscular Hgb Conc. 34.1 g/dL (32.0-36.0); Mean Corpuscular Volume 94.2 fL (80.0-100.0); Monocytes # (auto) 0.5 10 ^3/uL (0-1.3); Monocytes % (auto) 8.1 % (0.0-12.0); Neutrophils # (auto) 3.9 10 ^3/uL (1.6-8.6); Neutrophils % (auto) 66.4 % (37.0-80.0); Nucleated Red Blood Cells % 0.1 %; Platelet Count (auto) 205 10^3/uL (140-450); Red Blood Cells 4.63 10^6/uL (4.0-5.20); Red Cell Distribution Width 14.5 % (11.8-14.3); White Blood Cell 5.9 10^3/uL (4.4-10.8)
[2020-08-05 13:51] LABS: Potassium 3.9 mmol/L (3.5-5.1)
[2020-08-05 13:57] LABS: Albumin 3.8 g/dL (3.4-5.0); BUN/Creatinine Ratio 17.5; Bilirubin, Total 0.5 mg/dL (0.2-1.0)
== END | disposition home or self-care (01) ==
LOC: LAB 11:51
PROVIDERS: ATTEND Nurse Practitioner Family
DX: J44.9 Chronic obstructive pulmonary disease, unspecified (principal); N18.30 Chronic kidney disease, stage 3 unspecified; R53.83 Other fatigue
CPT/HCPCS: 36415; 80053; 82306; 82607; 84443; 85025

== ENCOUNTER 2020-10-16 14:12 | Observation (INO) | payer MEDICARE, OTHER ==
[~2020-10-16] VITALS: Ht 162.6 cm; Wt 45.9 kg
[2020-10-16] MEDS ORDERED: ASPirin 81 mg TAB PO ONE (14:30)
[2020-10-16 15:23] LABS: Basophils # (auto) 0 10 ^3/uL (0-0.2); Basophils % (auto) 0.9 % (0.0-2.0); Eosinophils # (auto) 0.1 10 ^3/uL (0-0.8); Eosinophils % (auto) 1.6 % (0.0-7.0); Hematocrit 47.5 % (36.0-46.0); Hemoglobin 15.7 g/dL (12.2-16.2); Lymphocytes # (auto) 1.7 10 ^3/uL (0.4-5.4); Lymphocytes % (auto) 32.5 % (10.0-50.0); Mean Corpuscular Hemoglobin 30.3 pg (28.0-32.0); Mean Corpuscular Hgb Conc. 33.1 g/dL (32.0-36.0); Mean Corpuscular Volume 91.6 fL (80.0-100.0); Monocytes # (auto) 0.5 10 ^3/uL (0-1.3); Monocytes % (auto) 8.7 % (0.0-12.0); Neutrophils % (auto) 56.3 % (37.0-80.0); Nucleated Red Blood Cells % 0.1 %; Red Blood Cells 5.19 10^6/uL (4.0-5.20); White Blood Cell 5.3 10^3/uL (4.4-10.8)
[2020-10-16 15:42] LABS: Albumin 3.6 g/dL (3.4-5.0); Anion Gap 5 (5-15); Blood Urea Nitrogen 10 mg/dL (7-18); Calcium 8.9 mg/dL (8.5-10.1); Carbon Dioxide 27 mmol/L (21-32); Chloride 108 mmol/L (98-107); Glucose 79 mg/dL (74-106); Magnesium 2.8 mg/dL (1.6-2.6); Potassium 4.4 mmol/L (3.5-5.1); Sodium 140 mmol/L (136-145)
[2020-10-16 15:47] LABS: Alanine Aminotransferase 18 U/L (13-56); Alkaline Phosphatase 134 U/L (45-117); Aspartate Aminotransferase 10 U/L (15-37); BUN/Creatinine Ratio 16.7; Bilirubin, Total 0.4 mg/dL (0.2-1.0); GFR African American 127 mL/min; GFR Non-African American 105 mL/min
[2020-10-16] MEDS ORDERED: ALBUTEROL SULF 2.5 MG/0.5ML(0.5%) NEB SOLN HHN ONE (16:30)
[2020-10-16] MEDS ORDERED: methylPREDNISolone SOD SUCC 125 MG/2 ML VL IV ONE (16:30)
[2020-10-16] MEDS ORDERED: IPRATROPIUM BROM 0.5 MG/2.5ML INH SOL HHN ONE (16:30)
[2020-10-16] MEDS ORDERED: POLYETHYLENE GLYCOL 17 GM PWDR PO ONE (18:45)
[2020-10-16] MEDS ORDERED: ONDANSETRON HCL 4 MG/2 ML VIAL IV PRN ×2 (18:45→23:30)
[2020-10-16] MEDS ORDERED: HYDROcodone-ACET 5/325MG TAB PO PRN ×2 (18:45→23:30)
[2020-10-16] MEDS ORDERED: POLYETHYLENE GLYCOL 17 GM PWDR PO PRN ×2 (18:45→23:30)
[2020-10-16] MEDS ORDERED: NITROGLYCERIN 0.4 MG SL TAB SL PRN ×2 (18:45→23:30)
[2020-10-16] MEDS ORDERED: MORPHINE SULF INJ 2 MG/ML SYRINGE 1ML IV PRN ×4 (18:45→23:30)
[2020-10-16] MEDS ORDERED: ALPRAZolam 0.5 MG TAB PO PRN (18:45)
[2020-10-16] MEDS ORDERED: ACETAMINOPHEN 500 MG TAB PO PRN ×2 (18:45→23:30)
[2020-10-16] MEDS ORDERED: BUDESONIDE (INHALATION) 0.5 MG/2 ML NEB ONE (21:08)
[2020-10-16 22:00] VITALS: BP 122/70
[2020-10-16] MEDS ORDERED: methylPREDNISolone SOD SUCC 40 MG/ML VL IV SCH (22:00)
[2020-10-16] MEDS ORDERED: BUDESONIDE (INHALATION) 0.5 MG/2 ML NEB NEB SCH (22:00)
[2020-10-16] MEDS: ALPRAZolam 0.5 MG TAB PO PRN (23:43)
[2020-10-17] VITALS (7 sets, daily range): BP systolic 107–152; BP diastolic 47–70
[2020-10-17] MEDS ORDERED: ALBUTEROL SULF 2.5 MG/0.5ML(0.5%) NEB SOLN NEB SCH (06:00)
[2020-10-17] MEDS ORDERED: IPRATROPIUM BROM 0.5 MG/2.5ML INH SOL NEB SCH (06:00)
[2020-10-17] MEDS: IPRATROPIUM BROM 0.5 MG/2.5ML INH SOL NEB SCH ×3 (07:10→19:49)
[2020-10-17] MEDS: ALBUTEROL SULF 2.5 MG/0.5ML(0.5%) NEB SOLN NEB SCH ×3 (07:10→19:49)
[2020-10-17] MEDS: BUDESONIDE (INHALATION) 0.5 MG/2 ML NEB NEB SCH ×2 (07:10→19:49)
[2020-10-17] MEDS: methylPREDNISolone SOD SUCC 40 MG/ML VL IV SCH ×2 (09:52→21:29)
[2020-10-17] MEDS: PANTOPRAZOLE 40 MG TAB PO SCH (09:52)
[2020-10-17] MEDS ORDERED: PANTOPRAZOLE 40 MG TAB PO SCH (10:00)
[2020-10-17] MEDS ORDERED: PATIENTS OWN MEDICATION (Duloxetine Hcl (Cymbalta) 1 CAP) PO SCH (10:00)
[2020-10-17] MEDS: NICOTINE 14 MG/24HR TOPICAL PATCH TD SCH (10:00)
[2020-10-17] MEDS: DULOXETINE HCL 60 MG PO SCH (11:12)
[2020-10-17] MEDS: ALPRAZolam 0.5 MG TAB PO PRN (23:56)
[2020-10-18 05:30] VITALS: BP 107/67
[2020-10-18] MEDS: ALBUTEROL SULF 2.5 MG/0.5ML(0.5%) NEB SOLN NEB SCH ×2 (07:02→11:51)
[2020-10-18] MEDS: BUDESONIDE (INHALATION) 0.5 MG/2 ML NEB NEB SCH (07:02)
[2020-10-18] MEDS: IPRATROPIUM BROM 0.5 MG/2.5ML INH SOL NEB SCH ×2 (07:02→11:51)
[2020-10-18 08:30] VITALS: BP 110/57
[2020-10-18 09:00] VITALS: BP 110/57
[2020-10-18] MEDS: methylPREDNISolone SOD SUCC 40 MG/ML VL IV SCH (10:21)
[2020-10-18] MEDS: PANTOPRAZOLE 40 MG TAB PO SCH (10:21)
[2020-10-18] MEDS: DULOXETINE HCL 60 MG PO SCH (10:21)
[2020-10-18] MEDS: NICOTINE 14 MG/24HR TOPICAL PATCH TD SCH (10:24)
[2020-10-18 13:00] VITALS: BP 119/70
[2020-10-18] MEDS ORDERED: ACETYLCYSTEINE 20%(200MG/ML) SOL 4ML NEB SCH (14:00)
[2020-10-18 17:00] VITALS: BP 116/72
[2020-10-18 18:19] VITALS: BP 116/72
[2020-10-18] MEDS ORDERED: ALBUTEROL SULF 2.5 MG/0.5ML(0.5%) NEB SOLN NEB SCH (22:00)
[2020-10-18] MEDS ORDERED: IPRATROPIUM BROM 0.5 MG/2.5ML INH SOL NEB SCH (22:00)
== END 2020-10-18 19:08 | disposition home or self-care (01) ==
LOC: ER 14:12 → EDBD 14:12 → WEST WING 18:41 → INTOOBSV 18:41 → ER 18:49 → WEST WING 21:52
PROVIDERS: ADMIT Nurse Practitioner Acute Care; ATTEND Internal Medicine
DX: J44.1 Chronic obstructive pulmonary disease with (acute) exacerbation (principal); Z20.822 Contact with and (suspected) exposure to COVID-19; R64 Cachexia; J98.4 Other disorders of lung; F41.9 Anxiety disorder, unspecified; R06.02 Shortness of breath; F32.9 Major depressive disorder, single episode, unspecified; F17.210 Nicotine dependence, cigarettes, uncomplicated; D84.9 Immunodeficiency, unspecified; Z68.1 Body mass index [BMI] 19.9 or less, adult
CPT/HCPCS: 36415; 36600; 71045; 71250; 80053; 82805; 83735; 83880; 84443; 84484; 85025; 85379; 87426; 94640; 96374; 96376; 99284; G0378; J2920; J2930; J7644; 93005

== ENCOUNTER 2020-11-24 16:00 | Emergency (ER) | payer MEDICARE, OTHER ==
[~2020-11-24] VITALS: Ht 170.2 cm; Wt 43.1 kg
[2020-11-24 16:01] VITALS: BP 114/52
[2020-11-24 16:34] LABS: Basophils # (auto) 0.1 10 ^3/uL (0-0.2); Basophils % (auto) 1.6 % (0.0-2.0); Eosinophils # (auto) 0.1 10 ^3/uL (0-0.8); Hematocrit 43.3 % (36.0-46.0); Hemoglobin 14.6 g/dL (12.2-16.2); Lymphocytes # (auto) 1.5 10 ^3/uL (0.4-5.4); Lymphocytes % (auto) 29.7 % (10.0-50.0); Mean Corpuscular Hemoglobin 31.2 pg (28.0-32.0); Mean Corpuscular Hgb Conc. 33.7 g/dL (32.0-36.0); Mean Corpuscular Volume 92.6 fL (80.0-100.0); Monocytes # (auto) 0.6 10 ^3/uL (0-1.3); Monocytes % (auto) 10.7 % (0.0-12.0); Nucleated Red Blood Cells % 0.1 %; Red Blood Cells 4.67 10^6/uL (4.0-5.20); Red Cell Distribution Width 14.8 % (11.8-14.3); White Blood Cell 5.2 10^3/uL (4.4-10.8)
[2020-11-24 16:54] LABS: Albumin 3.6 g/dL (3.4-5.0); Anion Gap 3 (5-15); Carbon Dioxide 24 mmol/L (21-32); Chloride 113 mmol/L (98-107); Potassium 4.6 mmol/L (3.5-5.1); Sodium 140 mmol/L (136-145)
[2020-11-24 16:58] LABS: Alanine Aminotransferase 19 U/L (13-56); Alkaline Phosphatase 152 U/L (45-117); Aspartate Aminotransferase 15 U/L (15-37); Bilirubin, Total 0.8 mg/dL (0.2-1.0); GFR African American 112 mL/min; GFR Non-African American 92 mL/min; Total Protein 7.1 g/dL (6.4-8.2)
[2020-11-24 17:18] LABS: BUN/Creatinine Ratio 14.9; Blood Urea Nitrogen 10 mg/dL (7-18); Glucose 81 mg/dL (74-106)
== END 2020-11-24 18:54 | disposition left against medical advice (07) ==
LOC: ER 16:00
DX: R07.89 Other chest pain (principal); Z53.21 Procedure and treatment not carried out due to patient leaving prior to being seen by health care provider
CPT/HCPCS: 36415; 80053; 84484; 85025; 93005

== ENCOUNTER → 2021-03-03 | Outpatient (CLI) | payer OTHER ==
[~2021-03-03] VITALS: Ht 170.2 cm; Wt 44.5 kg
[~2021-03-03] MED LIST changes: +REGADENOSON 0.4 MG/5 ML SYRG IV ONE
== END | disposition home or self-care (01) ==
LOC: XY 09:08
PROVIDERS: ATTEND Internal Medicine
DX: R06.02 Shortness of breath (principal); J43.2 Centrilobular emphysema; R53.83 Other fatigue; Z71.6 Tobacco abuse counseling
CPT/HCPCS: 78452; 93017; A9500; J2785

== ENCOUNTER → 2021-03-31 | Outpatient (CLI) | payer OTHER, MEDICARE ==
[~2021-03-31] MED LIST changes: -REGADENOSON 0.4 MG/5 ML SYRG IV ONE
[2021-03-31 12:42] LABS: Basophils # (auto) 0 10 ^3/uL (0-0.2); Basophils % (auto) 0.5 % (0.0-2.0); Eosinophils # (auto) 0 10 ^3/uL (0-0.8); Eosinophils % (auto) 0.4 % (0.0-7.0); Hematocrit 45.2 % (36.0-46.0); Hemoglobin 15.1 g/dL (12.2-16.2); Lymphocytes # (auto) 1.4 10 ^3/uL (0.4-5.4); Lymphocytes % (auto) 32.6 % (10.0-50.0); Mean Corpuscular Hemoglobin 30.6 pg (28.0-32.0); Mean Corpuscular Hgb Conc. 33.5 g/dL (32.0-36.0); Mean Corpuscular Volume 91.3 fL (80.0-100.0); Monocytes # (auto) 0.4 10 ^3/uL (0-1.3); Monocytes % (auto) 8.4 % (0.0-12.0); Neutrophils # (auto) 2.6 10 ^3/uL (1.6-8.6); Neutrophils % (auto) 58.1 % (37.0-80.0); Red Blood Cells 4.95 10^6/uL (4.0-5.20); Red Cell Distribution Width 13.5 % (11.8-14.3); Urine Blood Negative /uL (Negative); Urine Specific Gravity 1.007 (1.001-1.035); White Blood Cell 4.4 10^3/uL (4.4-10.8)
[2021-03-31 13:08] LABS: Potassium 4.5 mmol/L (3.5-5.1)
[2021-03-31 13:23] LABS: Albumin 3.8 g/dL (3.4-5.0); BUN/Creatinine Ratio 21.1; Bilirubin, Total 0.5 mg/dL (0.2-1.0); Calcium 8.7 mg/dL (8.5-10.1); Total Protein 6.3 g/dL (6.4-8.2)
== END | disposition home or self-care (01) ==
LOC: LAB 12:10
PROVIDERS: ATTEND Nurse Practitioner Family
DX: R10.10 Upper abdominal pain, unspecified (principal); R11.0 Nausea; K92.1 Melena
CPT/HCPCS: 36415; 80053; 81003; 82150; 83690; 85025

== ENCOUNTER 2021-07-04 09:32 | Emergency (ER) | payer MEDICARE, OTHER ==
[~2021-07-04] VITALS: Ht 170.2 cm; Wt 45.8 kg
[2021-07-04 13:11] VITALS: BP 114/68
[2021-07-04] MEDS ORDERED: cefTRIAXone SOD 1,000 MG VL IM ONE (14:00)
[2021-07-04] MEDS ORDERED: ACET-1158 PO (14:01)
[2021-07-04] MEDS ORDERED: CEPH-509 PO (14:01)
[2021-07-08] MEDS ORDERED: HYDR-3682 PO (10:02)
[2021-07-08] MEDS ORDERED: FLUT1AER17 IN (10:02)
[2021-07-08] MEDS ORDERED: ASCO500T11 PO (10:05)
[2021-07-08] MEDS ORDERED: MULT-1018 PO (10:05)
== END 2021-07-04 14:22 | disposition home or self-care (01) ==
LOC: ER 09:32
DX: S83.91XA Sprain of unspecified site of right knee, initial encounter (principal); L03.115 Cellulitis of right lower limb; S50.312A Abrasion of left elbow, initial encounter; F17.210 Nicotine dependence, cigarettes, uncomplicated; W19.XXXA Unspecified fall, initial encounter; Y93.89 Activity, other specified; Y92.89 Other specified places as the place of occurrence of the external cause; Y99.8 Other external cause status
CPT/HCPCS: 73070; 73560; 96372; 99284; J0696

== ENCOUNTER 2021-07-13 07:19 | Day surgery (SDC) | payer OTHER ==
[2021-07-08 10:56] LABS: Basophils # (auto) 0.1 10 ^3/uL (0-0.2); Basophils % (auto) 1.4 % (0.0-2.0); Eosinophils # (auto) 0 10 ^3/uL (0-0.8); Eosinophils % (auto) 0.8 % (0.0-7.0); Hematocrit 43.8 % (36.0-46.0); Hemoglobin 14.5 g/dL (12.2-16.2); Lymphocytes # (auto) 1.5 10 ^3/uL (0.4-5.4); Lymphocytes % (auto) 23.7 % (10.0-50.0); Mean Corpuscular Hemoglobin 31.1 pg (28.0-32.0); Mean Corpuscular Hgb Conc. 33.2 g/dL (32.0-36.0); Mean Corpuscular Volume 93.5 fL (80.0-100.0); Monocytes # (auto) 0.5 10 ^3/uL (0-1.3); Monocytes % (auto) 8.6 % (0.0-12.0); Neutrophils % (auto) 65.5 % (37.0-80.0); Nucleated Red Blood Cells % 0.1 %; Red Blood Cells 4.68 10^6/uL (4.0-5.20); Red Cell Distribution Width 14.4 % (11.8-14.3); White Blood Cell 6.1 10^3/uL (4.4-10.8)
[2021-07-08 11:07] LABS: INR 1.05 (0.9-1.15); Partial Thromboplastin Time 26.2 sec (23.6-33.0)
[2021-07-08 11:20] LABS: Albumin 3.6 g/dL (3.4-5.0); Potassium 4.7 mmol/L (3.5-5.1)
[2021-07-08 11:25] LABS: BUN/Creatinine Ratio 22.4; Bilirubin, Total 0.5 mg/dL (0.2-1.0); Calcium 8.9 mg/dL (8.5-10.1)
[~2021-07-13] VITALS: Ht 170.2 cm; Wt 45.8 kg
[~2021-07-13 07:19] MED LIST changes: -ALBUAER3 IN; +ASCO500T11 PO; -DULO60CA PO; +FLUT1AER17 IN; +HYDR-3682 PO; +MULT-1018 PO; -UMEC1AER IN
[2021-07-13] MEDS ORDERED: LIDOCAINE 2%HCL (LOCAL ANESTH.) INJ 10ml MDV ONE (07:28)
[2021-07-13] MEDS ORDERED: IODIXANOL 320MG/ML 100ML BTL IV ONE (07:28)
[2021-07-13] MEDS ORDERED: ANGIOMAX 250 MG VIAL IV ONE (08:41)
[2021-07-13] MEDS ORDERED: fentaNYL CITRATE 100 MCG/2 ML VL ONE (08:42)
[2021-07-13] MEDS ORDERED: HEPARIN SODIUM (PORCINE) 5000 UNITS/ML 1ML VIAL ONE (08:42)
[2021-07-13] MEDS ORDERED: SODIUM CHL 0.9% 0 ML ONE (08:42)
[2021-07-13] MEDS ORDERED: MIDAZOLAM HCL 2MG/2ML 2ml VIAL (1mg/ml) ONE (08:42)
[2021-07-13] MEDS ORDERED: VERAPAMIL 2.5MG/ML INJ 2ML VIAL IV ONE (08:43)
== END 2021-07-13 12:32 | disposition home or self-care (01) ==
LOC: CATH 07:19
PROVIDERS: ATTEND Internal Medicine
DX: I25.118 Atherosclerotic heart disease of native coronary artery with other forms of angina pectoris (principal); I07.1 Rheumatic tricuspid insufficiency; F32.9 Major depressive disorder, single episode, unspecified; F41.9 Anxiety disorder, unspecified; F17.200 Nicotine dependence, unspecified, uncomplicated; J43.9 Emphysema, unspecified; F32.A Depression, unspecified; Z83.6 Family history of other diseases of the respiratory system; Z98.890 Other specified postprocedural states; Z79.899 Other long term (current) drug therapy; Z20.822 Contact with and (suspected) exposure to COVID-19
CPT/HCPCS: 36415; 80053; 85025; 85610; 85730; 93306; 93458; C1769; C1887; C1894; J1644; J2001; J2250; J3010; J7030; Q9967; U0003; 99152; 99153

== ENCOUNTER → 2021-08-09 | Outpatient (CLI) | payer OTHER | END | disposition home or self-care (01) | LOC: LAB 12:25 | PROVIDERS: ATTEND Nurse Practitioner Family | DX: Z12.11 Encounter for screening for malignant neoplasm of colon (principal) | CPT/HCPCS: 82270 ==

== ENCOUNTER 2021-09-12 11:38 | Emergency (ER) | payer OTHER ==
[~2021-09-12] VITALS: Ht 170.2 cm; Wt 49.9 kg
[2021-09-12 11:47] VITALS: BP 105/71
[2021-09-12 13:13] LABS: Basophils # (auto) 0 10 ^3/uL (0-0.2); Basophils % (auto) 0.4 % (0.0-2.0); Eosinophils # (auto) 0 10 ^3/uL (0-0.8); Eosinophils % (auto) 0.6 % (0.0-7.0); Hematocrit 47.4 % (36.0-46.0); Hemoglobin 15.6 g/dL (12.2-16.2); Lymphocytes # (auto) 1.4 10 ^3/uL (0.4-5.4); Lymphocytes % (auto) 23.2 % (10.0-50.0); Mean Corpuscular Hemoglobin 30.7 pg (28.0-32.0); Mean Corpuscular Hgb Conc. 32.9 g/dL (32.0-36.0); Mean Corpuscular Volume 93.3 fL (80.0-100.0); Monocytes # (auto) 0.5 10 ^3/uL (0-1.3); Monocytes % (auto) 8.4 % (0.0-12.0); Neutrophils # (auto) 4.2 10 ^3/uL (1.6-8.6); Neutrophils % (auto) 67.4 % (37.0-80.0); Red Blood Cells 5.08 10^6/uL (4.0-5.20); Red Cell Distribution Width 13.4 % (11.8-14.3); White Blood Cell 6.2 10^3/uL (4.4-10.8)
[2021-09-12 13:27] LABS: Albumin 3.8 g/dL (3.4-5.0); Calcium 8.9 mg/dL (8.5-10.1); Potassium 4.4 mmol/L (3.5-5.1)
[2021-09-12 13:31] LABS: BUN/Creatinine Ratio 20.6; Bilirubin, Total 0.5 mg/dL (0.2-1.0); Total Protein 7.1 g/dL (6.4-8.2)
[2021-09-12 14:00] LABS: Urine Bacteria NONE SEEN /hpf (None Seen); Urine Blood Negative /uL (Negative); Urine Specific Gravity 1.012 (1.001-1.035); Urine WBC <1 /hpf (0 - 5)
[2021-09-12] MEDS ORDERED: TRAM-297 PO (14:31)
== END 2021-09-12 17:28 | disposition home or self-care (01) ==
LOC: ER 11:38
DX: R10.30 Lower abdominal pain, unspecified (principal); J44.9 Chronic obstructive pulmonary disease, unspecified; F17.210 Nicotine dependence, cigarettes, uncomplicated
CPT/HCPCS: 36415; 74176; 80053; 81001; 82150; 83690; 85025

== ENCOUNTER 2021-09-28 12:10 | Day surgery (SDC) | payer OTHER ==
[2021-09-27 10:53] LABS: Basophils # (auto) 0 10 ^3/uL (0-0.2); Basophils % (auto) 0.5 % (0.0-2.0); Eosinophils # (auto) 0.1 10 ^3/uL (0-0.8); Eosinophils % (auto) 1.4 % (0.0-7.0); Hematocrit 45.8 % (36.0-46.0); Hemoglobin 14.8 g/dL (12.2-16.2); Lymphocytes # (auto) 1.7 10 ^3/uL (0.4-5.4); Mean Corpuscular Hemoglobin 29.9 pg (28.0-32.0); Mean Corpuscular Hgb Conc. 32.2 g/dL (32.0-36.0); Mean Corpuscular Volume 92.9 fL (80.0-100.0); Monocytes # (auto) 0.7 10 ^3/uL (0-1.3); Neutrophils # (auto) 4.3 10 ^3/uL (1.6-8.6); Neutrophils % (auto) 63.1 % (37.0-80.0); Red Blood Cells 4.94 10^6/uL (4.0-5.20); Red Cell Distribution Width 13.7 % (11.8-14.3); White Blood Cell 6.8 10^3/uL (4.4-10.8)
[2021-09-27 11:14] LABS: INR 1.01 (0.9-1.15)
[2021-09-27 11:27] LABS: Potassium 4.2 mmol/L (3.5-5.1)
[2021-09-27 11:40] LABS: Albumin 3.7 g/dL (3.4-5.0); BUN/Creatinine Ratio 18.5; Bilirubin, Total 0.7 mg/dL (0.2-1.0); Total Protein 6.9 g/dL (6.4-8.2)
[~2021-09-28] VITALS: Ht 170.2 cm; Wt 47.2 kg
[~2021-09-28 12:10] MED LIST changes: +ALBUAER3 IN; +FLUMAZENIL 0.1 MG/ML INJ 10ML MDV IV ONE; +MONT5CHW23 PO; +NALOXONE HCL 0.4 MG/ML VIAL ONE; +OMEP20TA PO; +SODIUM CHLORIDE LOCK 10 ML ONE; +TRAM-297 PO
[2021-09-28] MEDS: fentaNYL CITRATE 100 MCG/2 ML VL ONE ×3 (12:43→12:51)
[2021-09-28] MEDS: MIDAZOLAM HCL 5 MG/ML-1ML VIAL ONE ×4 (12:43→12:56)
[2021-09-28] MEDS: diphenhdrAMINE HCL 50 MG/1 ML VL ONE ×2 (12:43→12:48)
[2021-09-28 14:05] VITALS: BP 109/59
== END 2021-09-28 14:30 | disposition home or self-care (01) ==
LOC: GI 12:10
PROVIDERS: ATTEND Internal Medicine Gastroenterology
DX: K59.00 Constipation, unspecified (principal); D12.2 Benign neoplasm of ascending colon; D12.4 Benign neoplasm of descending colon; D12.3 Benign neoplasm of transverse colon; D12.5 Benign neoplasm of sigmoid colon; Q43.8 Other specified congenital malformations of intestine; K64.8 Other hemorrhoids; F41.9 Anxiety disorder, unspecified; F17.200 Nicotine dependence, unspecified, uncomplicated; J43.9 Emphysema, unspecified; F32.A Depression, unspecified; Z82.5 Family history of asthma and other chronic lower respiratory diseases; Z98.890 Other specified postprocedural states; Z79.899 Other long term (current) drug therapy; Z96.641 Presence of right artificial hip joint; Z20.822 Contact with and (suspected) exposure to COVID-19
CPT/HCPCS: 36415; 45385; 80053; 85025; 85610; 85730; 88305; J1200; J2250; J3010; J7030; U0003; 99152

== ENCOUNTER 2021-10-28 10:02 | Day surgery (SDC) | payer OTHER ==
[2021-10-26 09:05] LABS: Basophils # (auto) 0 10 ^3/uL (0-0.2); Basophils % (auto) 0.6 % (0.0-2.0); Eosinophils # (auto) 0.1 10 ^3/uL (0-0.8); Hematocrit 44.6 % (36.0-46.0); Hemoglobin 14.4 g/dL (12.2-16.2); Lymphocytes # (auto) 1.4 10 ^3/uL (0.4-5.4); Lymphocytes % (auto) 18.5 % (10.0-50.0); Mean Corpuscular Hemoglobin 29.7 pg (28.0-32.0); Mean Corpuscular Hgb Conc. 32.2 g/dL (32.0-36.0); Mean Corpuscular Volume 92.4 fL (80.0-100.0); Monocytes # (auto) 0.8 10 ^3/uL (0-1.3); Neutrophils # (auto) 5.3 10 ^3/uL (1.6-8.6); Neutrophils % (auto) 69.9 % (37.0-80.0); Nucleated Red Blood Cells % 0.1 %; Red Blood Cells 4.83 10^6/uL (4.0-5.20); Red Cell Distribution Width 13.4 % (11.8-14.3); White Blood Cell 7.6 10^3/uL (4.4-10.8)
[2021-10-26 09:22] LABS: INR 0.98 (0.9-1.15); Partial Thromboplastin Time 26.3 sec (24.6-33.4)
[2021-10-26 09:24] LABS: Albumin 3.8 g/dL (3.4-5.0); Calcium 9.2 mg/dL (8.5-10.1); Potassium 4.1 mmol/L (3.5-5.1)
[2021-10-26 09:29] LABS: BUN/Creatinine Ratio 12.5; Bilirubin, Total 0.7 mg/dL (0.2-1.0); Total Protein 6.9 g/dL (6.4-8.2)
[~2021-10-28] VITALS: Ht 170.2 cm; Wt 47.2 kg
[~2021-10-28 10:02] MED LIST changes: -FLUMAZENIL 0.1 MG/ML INJ 10ML MDV IV ONE; -NALOXONE HCL 0.4 MG/ML VIAL ONE; -SODIUM CHLORIDE LOCK 10 ML ONE; -TRAM-297 PO
[2021-10-28] MEDS ORDERED: NALOXONE HCL 0.4 MG/ML VIAL ONE (12:50)
[2021-10-28] MEDS ORDERED: FLUMAZENIL 0.1 MG/ML INJ 10ML MDV IV ONE (12:50)
[2021-10-28] MEDS ORDERED: LIDOCAINE VISCOUS 2% 15ML UD ONE (13:08)
[2021-10-28] MEDS: fentaNYL CITRATE 100 MCG/2 ML VL ONE ×2 (13:31→13:34)
[2021-10-28] MEDS: MIDAZOLAM HCL 5 MG/ML-1ML VIAL ONE ×3 (13:31→13:37)
[2021-10-28] MEDS: diphenhdrAMINE HCL 50 MG/1 ML VL ONE ×2 (13:33→13:35)
[2021-10-28 14:10] VITALS: BP 106/51
== END 2021-10-28 14:25 | disposition home or self-care (01) ==
LOC: GI 10:02
PROVIDERS: ATTEND Internal Medicine Gastroenterology
DX: R14.0 Abdominal distension (gaseous) (principal); K21.00 Gastro-esophageal reflux disease with esophagitis, without bleeding; K44.9 Diaphragmatic hernia without obstruction or gangrene; K29.50 Unspecified chronic gastritis without bleeding; K31.89 Other diseases of stomach and duodenum; J44.9 Chronic obstructive pulmonary disease, unspecified; D12.6 Benign neoplasm of colon, unspecified; F41.9 Anxiety disorder, unspecified; F32.A Depression, unspecified; Z96.643 Presence of artificial hip joint, bilateral; Z87.891 Personal history of nicotine dependence; Z82.5 Family history of asthma and other chronic lower respiratory diseases; Z20.822 Contact with and (suspected) exposure to COVID-19
CPT/HCPCS: 36415; 43239; 80053; 85025; 85610; 85730; 88305; 88312; 88342; J1200; J2250; J3010; J7030; U0003; 99152

== ENCOUNTER 2022-02-23 17:30 | Inpatient (IN) | payer OTHER ==
[~2022-02-23] VITALS: Ht 170.2 cm; Wt 55.0 kg
[2022-02-23] MEDS ORDERED: IPRATROPIUM BROM 0.5 MG/2.5ML INH SOL HHN ONE (19:30)
[2022-02-23] MEDS ORDERED: ALBUTEROL SULF 2.5 MG/0.5ML(0.5%) NEB SOLN HHN ONE (19:30)
[2022-02-23] MEDS ORDERED: methylPREDNISolone SOD SUCC 125 MG/2 ML VL IV ONE (19:30)
[2022-02-23 20:07] LABS: Basophils # (auto) 0.1 10 ^3/uL (0-0.2); Basophils % (auto) 0.7 % (0.0-2.0); Eosinophils # (auto) 0 10 ^3/uL (0-0.8); Hematocrit 45.5 % (36.0-46.0); Hemoglobin 15.2 g/dL (12.2-16.2); Lymphocytes # (auto) 1.3 10 ^3/uL (0.4-5.4); Lymphocytes % (auto) 12.4 % (10.0-50.0); Mean Corpuscular Hemoglobin 30.7 pg (28.0-32.0); Mean Corpuscular Hgb Conc. 33.5 g/dL (32.0-36.0); Mean Corpuscular Volume 91.8 fL (80.0-100.0); Monocytes # (auto) 0.6 10 ^3/uL (0-1.3); Monocytes % (auto) 5.9 % (0.0-12.0); Neutrophils # (auto) 8.5 10 ^3/uL (1.6-8.6); Nucleated Red Blood Cells % 0.1 %; Red Blood Cells 4.96 10^6/uL (4.0-5.20); Red Cell Distribution Width 13.8 % (11.8-14.3); White Blood Cell 10.5 10^3/uL (4.4-10.8)
[2022-02-23 20:16] LABS: Albumin 3.9 g/dL (3.4-5.0); Calcium 9.1 mg/dL (8.5-10.1); Potassium 4.3 mmol/L (3.5-5.1)
[2022-02-23 20:19] LABS: Bilirubin, Total 0.6 mg/dL (0.2-1.0); Total Protein 6.5 g/dL (6.4-8.2)
[2022-02-23 20:20] LABS: Urine Specific Gravity 1.006 (1.001-1.035)
[2022-02-23 20:21] LABS: Urine Blood Negative /uL (Negative)
[2022-02-23] MEDS ORDERED: ALPRAZolam 0.5 MG TAB PO PRN (21:00)
[2022-02-23] MEDS ORDERED: ALBUTEROL SULF 2.5 MG/0.5ML(0.5%) NEB SOLN NEB PRN (21:00)
[2022-02-23] MEDS ORDERED: IPRATROPIUM BROM 0.5 MG/2.5ML INH SOL NEB PRN (21:00)
[2022-02-23] MEDS ORDERED: ACETAMINOPHEN 325 MG TAB PO PRN (21:00)
[2022-02-23] MEDS ORDERED: HYDROcodone-ACET 5/325MG TAB PO PRN (21:00)
[2022-02-23] MEDS ORDERED: methylPREDNISolone SOD SUCC 40 MG/ML VL IV SCH (22:00)
[2022-02-23 22:07] VITALS: BP 113/74
[2022-02-24] MEDS ORDERED: MORPHINE SULFATE INJ 2 MG/ml SYRG IV PRN
[2022-02-24] MEDS ORDERED: NITROGLYCERIN 0.4 MG SL TAB SL PRN
[2022-02-24] MEDS ORDERED: methylPREDNISolone SOD SUCC 125 MG/2 ML VL IV ONE (02:30)
[2022-02-24] MEDS: SODIUM CHLOR 0.9% PF (SALINE LOCK) 10ML VIAL/SYR IV SCH ×4 (02:34→22:00)
[2022-02-24 05:00] VITALS: BP 117/57
[2022-02-24 06:54] VITALS: BP 117/57
[2022-02-24] MEDS ORDERED: NYS5LQ MT (08:01)
[2022-02-24] MEDS: MULTIPLE VITAMIN TAB PO SCH (08:25)
[2022-02-24] MEDS: FAMOTIDINE (10MG/ML) 2ML VL IV SCH (08:25)
[2022-02-24 08:37] LABS: Basophils # (auto) 0 10 ^3/uL (0-0.2); Basophils % (auto) 0.1 % (0.0-2.0); Eosinophils # (auto) 0 10 ^3/uL (0-0.8); Hematocrit 42.7 % (36.0-46.0); Hemoglobin 13.9 g/dL (12.2-16.2); Lymphocytes # (auto) 0.7 10 ^3/uL (0.4-5.4); Lymphocytes % (auto) 8.8 % (10.0-50.0); Mean Corpuscular Hemoglobin 30.2 pg (28.0-32.0); Mean Corpuscular Hgb Conc. 32.6 g/dL (32.0-36.0); Mean Corpuscular Volume 92.6 fL (80.0-100.0); Monocytes # (auto) 0.2 10 ^3/uL (0-1.3); Monocytes % (auto) 2.2 % (0.0-12.0); Neutrophils # (auto) 6.7 10 ^3/uL (1.6-8.6); Neutrophils % (auto) 88.9 % (37.0-80.0); Red Blood Cells 4.62 10^6/uL (4.0-5.20); Red Cell Distribution Width 13.7 % (11.8-14.3); White Blood Cell 7.5 10^3/uL (4.4-10.8)
[2022-02-24 08:57] LABS: Calcium 8.9 mg/dL (8.5-10.1); Potassium 4.5 mmol/L (3.5-5.1)
[2022-02-24 09:00] VITALS: BP 105/54
[2022-02-24 09:03] LABS: Albumin 3.3 g/dL (3.4-5.0); BUN/Creatinine Ratio 19.3; Bilirubin, Total 0.7 mg/dL (0.2-1.0)
[2022-02-24] MEDS: ALBUTEROL SULF 2.5 MG/0.5ML(0.5%) NEB SOLN NEB SCH ×4 (12:03→23:06)
[2022-02-24] MEDS: IPRATROPIUM BROM 0.5 MG/2.5ML INH SOL NEB SCH ×4 (12:04→23:06)
[2022-02-24 13:00] VITALS: BP 115/60
[2022-02-24] MEDS: methylPREDNISolone SOD SUCC 40 MG/ML VL IV SCH ×2 (13:23→22:00)
[2022-02-24] MEDS: ALPRAZolam 0.5 MG TAB PO PRN (13:24)
[2022-02-24 17:00] VITALS: BP 116/57
[2022-02-24 22:00] VITALS: BP 108/50
[2022-02-24] MEDS: DOCUSATE SOD 100 MG CAP PO PRN (22:00)
[2022-02-25] MEDS: IPRATROPIUM BROM 0.5 MG/2.5ML INH SOL NEB SCH ×6 (03:04→22:28)
[2022-02-25] MEDS: ALBUTEROL SULF 2.5 MG/0.5ML(0.5%) NEB SOLN NEB SCH ×6 (03:05→22:28)
[2022-02-25 05:00] VITALS: BP 116/53
[2022-02-25] MEDS: methylPREDNISolone SOD SUCC 40 MG/ML VL IV SCH ×3 (05:36→22:11)
[2022-02-25] MEDS: SODIUM CHLOR 0.9% PF (SALINE LOCK) 10ML VIAL/SYR IV SCH ×3 (05:36→22:15)
[2022-02-25 05:37] LABS: Basophils # (auto) 0 10 ^3/uL (0-0.2); Basophils % (auto) 0.1 % (0.0-2.0); Eosinophils # (auto) 0 10 ^3/uL (0-0.8); Hematocrit 43.6 % (36.0-46.0); Hemoglobin 14.1 g/dL (12.2-16.2); Lymphocytes # (auto) 0.9 10 ^3/uL (0.4-5.4); Lymphocytes % (auto) 7.8 % (10.0-50.0); Mean Corpuscular Hemoglobin 29.9 pg (28.0-32.0); Mean Corpuscular Hgb Conc. 32.3 g/dL (32.0-36.0); Mean Corpuscular Volume 92.6 fL (80.0-100.0); Monocytes # (auto) 0.6 10 ^3/uL (0-1.3); Monocytes % (auto) 4.7 % (0.0-12.0); Neutrophils # (auto) 10.5 10 ^3/uL (1.6-8.6); Neutrophils % (auto) 87.4 % (37.0-80.0); Red Blood Cells 4.71 10^6/uL (4.0-5.20); Red Cell Distribution Width 13.9 % (11.8-14.3); White Blood Cell 12.1 10^3/uL (4.4-10.8)
[2022-02-25 05:50] LABS: BUN/Creatinine Ratio 33.8; Calcium 9.4 mg/dL (8.5-10.1); Potassium 4.4 mmol/L (3.5-5.1)
[2022-02-25] MEDS: ALPRAZolam 0.5 MG TAB PO PRN ×3 (06:41→22:11)
[2022-02-25] MEDS: ONDANSETRON HCL 4 MG/2 ML VIAL IV PRN (06:42)
[2022-02-25 08:00] VITALS: BP 114/54
[2022-02-25] MEDS: MULTIPLE VITAMIN TAB PO SCH (08:28)
[2022-02-25] MEDS: FAMOTIDINE (10MG/ML) 2ML VL IV SCH (08:28)
[2022-02-25] MEDS: DOCUSATE SOD 100 MG CAP PO PRN ×2 (08:28→22:11)
[2022-02-25 12:00] VITALS: BP 117/63
[2022-02-25 16:00] VITALS: BP 109/69
[2022-02-25 22:00] VITALS: BP_SYST 121; BP_SYST 95; BP_DIAS 55; BP_DIAS 61
[2022-02-26] MEDS: ALBUTEROL SULF 2.5 MG/0.5ML(0.5%) NEB SOLN NEB SCH ×6 (02:00→23:07)
[2022-02-26] MEDS: IPRATROPIUM BROM 0.5 MG/2.5ML INH SOL NEB SCH ×6 (02:00→23:07)
[2022-02-26 05:00] VITALS: BP 125/64
[2022-02-26] MEDS: SODIUM CHLOR 0.9% PF (SALINE LOCK) 10ML VIAL/SYR IV SCH ×3 (05:33→22:21)
[2022-02-26] MEDS: methylPREDNISolone SOD SUCC 40 MG/ML VL IV SCH ×3 (05:33→22:21)
[2022-02-26 08:33] VITALS: BP 114/51
[2022-02-26] MEDS: ALPRAZolam 0.5 MG TAB PO PRN ×2 (09:25→22:33)
[2022-02-26] MEDS: FAMOTIDINE (10MG/ML) 2ML VL IV SCH (09:25)
[2022-02-26] MEDS: MULTIPLE VITAMIN TAB PO SCH (09:25)
[2022-02-26] MEDS: DOCUSATE SOD 100 MG CAP PO PRN (09:25)
[2022-02-26 12:39] VITALS: BP 126/58
[2022-02-26] MEDS: POLYETHYLENE GLYCOL 17 GM PWDR PO PRN (13:39)
[2022-02-26 16:38] VITALS: BP 102/49
[2022-02-26 20:43] VITALS: BP 102/49
[2022-02-26] MEDS: ONDANSETRON HCL 4 MG/2 ML VIAL IV PRN (22:33)
[2022-02-26 23:24] VITALS: BP 105/59
[2022-02-27] VITALS (7 sets, daily range): BP systolic 107–155; BP diastolic 63–97
[2022-02-27] MEDS: IPRATROPIUM BROM 0.5 MG/2.5ML INH SOL NEB SCH ×6 (02:00→22:27)
[2022-02-27] MEDS: ALBUTEROL SULF 2.5 MG/0.5ML(0.5%) NEB SOLN NEB SCH ×6 (02:00→22:27)
[2022-02-27] MEDS: SODIUM CHLOR 0.9% PF (SALINE LOCK) 10ML VIAL/SYR IV SCH ×3 (05:41→21:23)
[2022-02-27] MEDS: methylPREDNISolone SOD SUCC 40 MG/ML VL IV SCH ×3 (05:53→21:23)
[2022-02-27] MEDS: FAMOTIDINE (10MG/ML) 2ML VL IV SCH (08:44)
[2022-02-27] MEDS: MULTIPLE VITAMIN TAB PO SCH (08:44)
[2022-02-27] MEDS: ALPRAZolam 0.5 MG TAB PO PRN ×3 (08:44→23:26)
[2022-02-28] MEDS: ALBUTEROL SULF 2.5 MG/0.5ML(0.5%) NEB SOLN NEB SCH ×4 (02:00→13:48)
[2022-02-28] MEDS: IPRATROPIUM BROM 0.5 MG/2.5ML INH SOL NEB SCH ×4 (02:00→13:48)
[2022-02-28 05:19] VITALS: BP 116/54
[2022-02-28] MEDS: SODIUM CHLOR 0.9% PF (SALINE LOCK) 10ML VIAL/SYR IV SCH (05:56)
[2022-02-28] MEDS: methylPREDNISolone SOD SUCC 40 MG/ML VL IV SCH (05:57)
[2022-02-28 06:06] LABS: Basophils # (auto) 0 10 ^3/uL (0-0.2); Basophils % (auto) 0.2 % (0.0-2.0); Eosinophils # (auto) 0 10 ^3/uL (0-0.8); Hematocrit 42.2 % (36.0-46.0); Hemoglobin 13.8 g/dL (12.2-16.2); Lymphocytes # (auto) 1.1 10 ^3/uL (0.4-5.4); Lymphocytes % (auto) 9.4 % (10.0-50.0); Mean Corpuscular Hemoglobin 30.4 pg (28.0-32.0); Mean Corpuscular Hgb Conc. 32.7 g/dL (32.0-36.0); Mean Corpuscular Volume 93.1 fL (80.0-100.0); Monocytes # (auto) 0.6 10 ^3/uL (0-1.3); Monocytes % (auto) 5.3 % (0.0-12.0); Neutrophils # (auto) 10.1 10 ^3/uL (1.6-8.6); Neutrophils % (auto) 85.1 % (37.0-80.0); Red Blood Cells 4.53 10^6/uL (4.0-5.20); Red Cell Distribution Width 13.9 % (11.8-14.3); White Blood Cell 11.8 10^3/uL (4.4-10.8)
[2022-02-28 06:27] LABS: BUN/Creatinine Ratio 36.9; Calcium 8.8 mg/dL (8.5-10.1); Potassium 4.3 mmol/L (3.5-5.1)
[2022-02-28 09:00] VITALS: BP 123/63
[2022-02-28] MEDS: POLYETHYLENE GLYCOL 17 GM PWDR PO PRN (09:12)
[2022-02-28] MEDS: FAMOTIDINE (10MG/ML) 2ML VL IV SCH (09:12)
[2022-02-28] MEDS: MULTIPLE VITAMIN TAB PO SCH (09:12)
[2022-02-28] MEDS: ALPRAZolam 0.5 MG TAB PO PRN (09:13)
[2022-02-28] MEDS: ONDANSETRON HCL 4 MG/2 ML VIAL IV PRN (09:13)
[2022-02-28] MEDS ORDERED: PRED20TA2 PO (11:31)
[2022-02-28] MEDS ORDERED: MULT-1018 PO (11:31)
== END 2022-02-28 14:35 | disposition home or self-care (01) | DRG 189 ==
LOC: ER 17:30 → TELE 23:47 → TELE-WESTW 02-24 02:45
PROVIDERS: ADMIT Nurse Practitioner Family; ATTEND Internal Medicine Pulmonary Disease
DX: J96.01 Acute respiratory failure with hypoxia (principal); J44.1 Chronic obstructive pulmonary disease with (acute) exacerbation; Z20.822 Contact with and (suspected) exposure to COVID-19; F41.9 Anxiety disorder, unspecified; F32.A Depression, unspecified; Z99.81 Dependence on supplemental oxygen; Z87.891 Personal history of nicotine dependence
CPT/HCPCS: 36415; 71045; 71275; 80048; 80053; 81003; 82962; 84484; 85025; 87426; 87804; 93005; 94640; 94644; 96374; 96375; G0378; J2405; J3490

== ENCOUNTER 2022-07-08 12:09 | Inpatient (IN) | payer MEDICARE, OTHER ==
[~2022-07-08] VITALS: Ht 170.2 cm; Wt 57.9 kg
[~2022-07-08 12:09] MED LIST changes: +NYS5LQ MT; +PRED20TA2 PO
[2022-07-08 13:25] LABS: Basophils # (auto) 0.1 10 ^3/uL (0-0.2); Basophils % (auto) 1.4 % (0.0-2.0); Eosinophils # (auto) 0.1 10 ^3/uL (0-0.8); Hematocrit 43.4 % (36.0-46.0); Hemoglobin 14.8 g/dL (12.2-16.2); Lymphocytes # (auto) 1.9 10 ^3/uL (0.4-5.4); Lymphocytes % (auto) 30.7 % (10.0-50.0); Mean Corpuscular Hemoglobin 29.7 pg (28.0-32.0); Mean Corpuscular Hgb Conc. 34.1 g/dL (32.0-36.0); Monocytes # (auto) 0.6 10 ^3/uL (0-1.3); Monocytes % (auto) 10.1 % (0.0-12.0); Neutrophils # (auto) 3.5 10 ^3/uL (1.6-8.6); Neutrophils % (auto) 56.8 % (37.0-80.0); Nucleated Red Blood Cells % 0.5 %; Red Blood Cells 4.99 10^6/uL (4.0-5.20); Red Cell Distribution Width 13.7 % (11.8-14.3); White Blood Cell 6.2 10^3/uL (4.4-10.8)
[2022-07-08 13:36] LABS: INR 0.97 (0.9-1.15); Partial Thromboplastin Time 24.6 sec (24.6-33.4)
[2022-07-08 13:37] LABS: Calcium 9.4 mg/dL (8.5-10.1); Potassium 3.8 mmol/L (3.5-5.1)
[2022-07-08 13:43] LABS: Albumin 3.6 g/dL (3.4-5.0); BUN/Creatinine Ratio 14.8 (10.0-20.0); Bilirubin, Total 0.3 mg/dL (0.2-1.0); Magnesium 2.6 mg/dL (1.6-2.6); Total Protein 6.6 g/dL (6.4-8.2)
[2022-07-08 13:50] LABS: Urine Bacteria NONE SEEN /hpf (None Seen); Urine Blood Negative /uL (Negative); Urine Specific Gravity 1.005 (1.001-1.035); Urine WBC <1 /hpf (0 - 5)
[2022-07-08] MEDS ORDERED: IPRATROPIUM BROM 0.5 MG/2.5ML INH SOL NEB ONE (14:30)
[2022-07-08] MEDS ORDERED: DexAMETHasone 4 MG TAB PO ONE (14:30)
[2022-07-08] MEDS ORDERED: DOXYCYCLINE 100 MG TAB/CAP PO ONE (14:30)
[2022-07-08] MEDS ORDERED: ALBUTEROL SULF 2.5 MG/0.5ML(0.5%) NEB SOLN NEB ONE (14:30)
[2022-07-08] MEDS: MAGNESIUM SULFATE 1GM/100ML 100 ML IV SCH ×2 (15:30→18:10)
[2022-07-08] MEDS ORDERED: HYDROcodone-ACET 5/325MG TAB PO PRN (22:45)
[2022-07-08] MEDS ORDERED: ONDANSETRON HCL 4 MG/2 ML VIAL IV PRN (22:45)
[2022-07-08] MEDS ORDERED: ACETAMINOPHEN 325 MG TAB PO PRN (22:45)
[2022-07-08] MEDS ORDERED: ALPRAZolam 0.5 MG TAB PO PRN (22:45)
[2022-07-09] MEDS ORDERED: MORPHINE SULFATE INJ 2 MG/ml SYRG IV PRN
[2022-07-09] MEDS ORDERED: NITROGLYCERIN 0.4 MG SL TAB SL PRN
[2022-07-09 00:52] VITALS: BP 123/77
[2022-07-09] MEDS: IPRATROPIUM BROM 0.5 MG/2.5ML INH SOL NEB PRN ×3 (03:07→18:20)
[2022-07-09] MEDS: ALBUTEROL SULF 2.5 MG/0.5ML(0.5%) NEB SOLN NEB PRN ×3 (03:07→18:20)
[2022-07-09] MEDS: SODIUM CHLOR 0.9% PF (SALINE LOCK) 10ML VIAL/SYR IV SCH ×3 (06:00→22:38)
[2022-07-09 06:30] LABS: Basophils # (auto) 0 10 ^3/uL (0-0.2); Basophils % (auto) 0.7 % (0.0-2.0); Eosinophils # (auto) 0 10 ^3/uL (0-0.8); Hematocrit 42.9 % (36.0-46.0); Hemoglobin 14.4 g/dL (12.2-16.2); Lymphocytes # (auto) 1.1 10 ^3/uL (0.4-5.4); Lymphocytes % (auto) 18.1 % (10.0-50.0); Mean Corpuscular Hemoglobin 29.7 pg (28.0-32.0); Mean Corpuscular Hgb Conc. 33.4 g/dL (32.0-36.0); Monocytes # (auto) 0.3 10 ^3/uL (0-1.3); Neutrophils # (auto) 4.7 10 ^3/uL (1.6-8.6); Neutrophils % (auto) 76.2 % (37.0-80.0); Nucleated Red Blood Cells % 0.5 %; Red Blood Cells 4.83 10^6/uL (4.0-5.20); Red Cell Distribution Width 13.8 % (11.8-14.3); White Blood Cell 6.2 10^3/uL (4.4-10.8)
[2022-07-09 06:52] LABS: Albumin 3.7 g/dL (3.4-5.0); Calcium 9.3 mg/dL (8.5-10.1)
[2022-07-09 06:57] LABS: BUN/Creatinine Ratio 17.8 (10.0-20.0); Bilirubin, Total 0.3 mg/dL (0.2-1.0); Total Protein 6.9 g/dL (6.4-8.2)
[2022-07-09] MEDS: methylPREDNISolone SOD SUCC 40 MG/ML VL IV SCH ×3 (08:04→22:38)
[2022-07-09] MEDS ORDERED: FAMOTIDINE (10MG/ML) 2ML VL IV SCH (10:00)
[2022-07-09] MEDS ORDERED: ASPirin 81 mg TAB PO SCH (10:00)
[2022-07-09] MEDS ORDERED: PANTOPRAZOLE 40 MG/10 ML VIAL INJ IV ONE (10:30)
[2022-07-09] MEDS ORDERED: cefTRIAXone 1GM/50ML D5W 50 ML IV ONE (10:30)
[2022-07-10] MEDS ORDERED: TEMAZEPAM 15 MG CAP PO ONE (00:45)
[2022-07-10] MEDS: SODIUM CHLOR 0.9% PF (SALINE LOCK) 10ML VIAL/SYR IV SCH ×3 (06:40→22:00)
[2022-07-10] MEDS: methylPREDNISolone SOD SUCC 40 MG/ML VL IV SCH ×3 (06:40→22:46)
[2022-07-10] MEDS ORDERED: PANTOPRAZOLE 40 MG/10 ML VIAL INJ IV SCH (10:00)
[2022-07-10] MEDS: cefTRIAXone 1GM/50ML D5W 50 ML IV SCH (10:32)
[2022-07-10] MEDS: ALPRAZolam 0.5 MG TAB PO PRN ×2 (11:38→22:46)
[2022-07-10] MEDS ORDERED: SENNA 8.6 MG TAB PO ONE (12:30)
[2022-07-10] MEDS: ALBUTEROL SULF 2.5 MG/0.5ML(0.5%) NEB SOLN NEB PRN ×2 (14:07→23:15)
[2022-07-10] MEDS: IPRATROPIUM BROM 0.5 MG/2.5ML INH SOL NEB PRN ×2 (14:07→23:15)
[2022-07-10] MEDS: ACETYLCYSTEINE 20%(200MG/ML) SOL 4ML NEB SCH ×2 (14:07→23:15)
[2022-07-10] MEDS: SENNA 8.6 MG TAB PO SCH (22:46)
[2022-07-10] MEDS: DOXYCYCLINE 100 MG TAB/CAP PO SCH (22:47)
[2022-07-10] MEDS ORDERED: LIDOCAINE 1% HCL (LOCAL ANESTH.) INJ 20ML MDV ID ONE (23:15)
[2022-07-11] VITALS (7 sets, daily range): BP systolic 114–145; BP diastolic 58–71
[2022-07-11] MEDS ORDERED: ALPR1TAB2 PO (02:15)
[2022-07-11] MEDS ORDERED: HYDR-3682 PO (02:15)
[2022-07-11] MEDS ORDERED: OMEP20TA PO (02:15)
[2022-07-11] MEDS: SODIUM CHLOR 0.9% PF (SALINE LOCK) 10ML VIAL/SYR IV SCH ×3 (06:28→21:56)
[2022-07-11] MEDS: methylPREDNISolone SOD SUCC 40 MG/ML VL IV SCH ×3 (06:28→21:56)
[2022-07-11] MEDS: cefTRIAXone 1GM/50ML D5W 50 ML IV SCH (10:03)
[2022-07-11] MEDS: DOCUSATE SOD 100 MG CAP PO PRN (10:16)
[2022-07-11] MEDS: PANTOPRAZOLE 40 MG TAB PO SCH (10:16)
[2022-07-11] MEDS: DOXYCYCLINE 100 MG TAB/CAP PO SCH ×2 (10:16→21:55)
[2022-07-11] MEDS: IPRATROPIUM BROM 0.5 MG/2.5ML INH SOL NEB PRN ×2 (10:27→17:59)
[2022-07-11] MEDS: ALBUTEROL SULF 2.5 MG/0.5ML(0.5%) NEB SOLN NEB PRN ×2 (10:27→17:59)
[2022-07-11] MEDS ORDERED: ERGOCALCIFEROL 50,000 UNIT(1.25MG) CAP PO SCH (11:30)
[2022-07-11 14:34] LABS: Cholesterol 188 mg/dL (< 200); HDL Cholesterol 60 mg/dL (40-59); LDL Cholesterol 89 mg/dL (< 100); Triglycerides 125 mg/dL (< 150)
[2022-07-11] MEDS: SENNA 8.6 MG TAB PO SCH (21:56)
[2022-07-11] MEDS: ALPRAZolam 0.5 MG TAB PO PRN (22:28)
[2022-07-12 05:00] VITALS: BP 96/55
[2022-07-12] MEDS: methylPREDNISolone SOD SUCC 40 MG/ML VL IV SCH ×3 (06:09→23:02)
[2022-07-12] MEDS: SODIUM CHLOR 0.9% PF (SALINE LOCK) 10ML VIAL/SYR IV SCH ×3 (06:09→22:00)
[2022-07-12 09:00] VITALS: BP 130/75
[2022-07-12] MEDS: cefTRIAXone 1GM/50ML D5W 50 ML IV SCH (09:01)
[2022-07-12] MEDS: PANTOPRAZOLE 40 MG TAB PO SCH (09:50)
[2022-07-12] MEDS: ALPRAZolam 0.5 MG TAB PO PRN ×2 (09:51→23:44)
[2022-07-12] MEDS: DOXYCYCLINE 100 MG TAB/CAP PO SCH ×2 (09:51→23:02)
[2022-07-12] MEDS: IPRATROPIUM BROM 0.5 MG/2.5ML INH SOL NEB PRN (10:28)
[2022-07-12] MEDS: ALBUTEROL SULF 2.5 MG/0.5ML(0.5%) NEB SOLN NEB PRN (10:28)
[2022-07-12 13:00] VITALS: BP 117/78
[2022-07-12 16:30] VITALS: BP 136/82
[2022-07-12 22:00] VITALS: BP 131/60
[2022-07-12] MEDS: SENNA 8.6 MG TAB PO SCH (23:02)
[2022-07-13 05:00] VITALS: BP 125/73
[2022-07-13] MEDS: SODIUM CHLOR 0.9% PF (SALINE LOCK) 10ML VIAL/SYR IV SCH ×3 (06:00→21:25)
[2022-07-13] MEDS: methylPREDNISolone SOD SUCC 40 MG/ML VL IV SCH ×3 (06:41→21:25)
[2022-07-13] MEDS: cefTRIAXone 1GM/50ML D5W 50 ML IV SCH (10:25)
[2022-07-13] MEDS: ALPRAZolam 0.5 MG TAB PO PRN ×2 (10:26→23:13)
[2022-07-13] MEDS: DOXYCYCLINE 100 MG TAB/CAP PO SCH ×2 (10:26→21:25)
[2022-07-13] MEDS: PANTOPRAZOLE 40 MG TAB PO SCH (10:26)
[2022-07-13 13:00] VITALS: BP 144/70
[2022-07-13] MEDS: SENNA 8.6 MG TAB PO SCH (21:25)
[2022-07-13 22:00] VITALS: BP 135/74
[2022-07-14 05:00] VITALS: BP 111/58
[2022-07-14] MEDS: SODIUM CHLOR 0.9% PF (SALINE LOCK) 10ML VIAL/SYR IV SCH ×3 (06:00→21:35)
[2022-07-14] MEDS: methylPREDNISolone SOD SUCC 40 MG/ML VL IV SCH ×3 (06:32→21:36)
[2022-07-14] MEDS: ONDANSETRON HCL 4 MG/2 ML VIAL IV PRN (06:50)
[2022-07-14] MEDS: PANTOPRAZOLE 40 MG TAB PO SCH (08:59)
[2022-07-14 09:00] VITALS: BP 123/86
[2022-07-14] MEDS: DOXYCYCLINE 100 MG TAB/CAP PO SCH ×2 (09:01→21:36)
[2022-07-14] MEDS: cefTRIAXone 1GM/50ML D5W 50 ML IV SCH (09:01)
[2022-07-14] MEDS: ALPRAZolam 0.5 MG TAB PO PRN ×2 (09:05→23:22)
[2022-07-14 12:35] VITALS: BP 133/79
[2022-07-14 17:00] VITALS: BP 134/80
[2022-07-14] MEDS: SENNA 8.6 MG TAB PO SCH (21:36)
[2022-07-14 22:00] VITALS: BP 118/59
[2022-07-15 03:36] VITALS: BP 118/59
[2022-07-15 05:00] VITALS: BP 130/84
[2022-07-15] MEDS: methylPREDNISolone SOD SUCC 40 MG/ML VL IV SCH ×3 (06:21→22:41)
[2022-07-15] MEDS: SODIUM CHLOR 0.9% PF (SALINE LOCK) 10ML VIAL/SYR IV SCH ×3 (06:21→22:41)
[2022-07-15] MEDS: cefTRIAXone 1GM/50ML D5W 50 ML IV SCH (08:54)
[2022-07-15] MEDS: ONDANSETRON HCL 4 MG/2 ML VIAL IV PRN (08:54)
[2022-07-15] MEDS: DOXYCYCLINE 100 MG TAB/CAP PO SCH ×2 (08:55→22:41)
[2022-07-15] MEDS: PANTOPRAZOLE 40 MG TAB PO SCH (08:55)
[2022-07-15] MEDS: ALPRAZolam 0.5 MG TAB PO PRN ×2 (08:55→23:31)
[2022-07-15 09:00] VITALS: BP 131/72
[2022-07-15] MEDS ORDERED: ALBUTEROL SULF 2.5 MG/0.5ML(0.5%) NEB SOLN NEB SCH (11:00)
[2022-07-15 13:00] VITALS: BP 112/76
[2022-07-15] MEDS: IPRATROPIUM BROM 0.5 MG/2.5ML INH SOL NEB PRN ×2 (14:30→19:04)
[2022-07-15] MEDS: ALBUTEROL SULF 2.5 MG/0.5ML(0.5%) NEB SOLN NEB SCH ×3 (14:30→23:07)
[2022-07-15 17:25] VITALS: BP 100/51
[2022-07-15 22:00] VITALS: BP 120/57
[2022-07-15] MEDS: SENNA 8.6 MG TAB PO SCH (22:41)
[2022-07-16] MEDS: ALBUTEROL SULF 2.5 MG/0.5ML(0.5%) NEB SOLN NEB SCH ×8 (00:08→22:58)
[2022-07-16 05:00] VITALS: BP 129/73
[2022-07-16] MEDS: SODIUM CHLOR 0.9% PF (SALINE LOCK) 10ML VIAL/SYR IV SCH ×3 (05:33→21:45)
[2022-07-16] MEDS: methylPREDNISolone SOD SUCC 40 MG/ML VL IV SCH ×3 (05:34→21:45)
[2022-07-16 05:42] LABS: Basophils # (auto) 0 10 ^3/uL (0-0.2); Basophils % (auto) 0.4 % (0.0-2.0); Eosinophils # (auto) 0 10 ^3/uL (0-0.8); Hematocrit 45.1 % (36.0-46.0); Hemoglobin 14.8 g/dL (12.2-16.2); Lymphocytes # (auto) 1.1 10 ^3/uL (0.4-5.4); Lymphocytes % (auto) 8.9 % (10.0-50.0); Mean Corpuscular Hemoglobin 29.5 pg (28.0-32.0); Mean Corpuscular Hgb Conc. 32.8 g/dL (32.0-36.0); Mean Corpuscular Volume 90.1 fL (80.0-100.0); Monocytes # (auto) 0.6 10 ^3/uL (0-1.3); Monocytes % (auto) 4.7 % (0.0-12.0); Neutrophils # (auto) 10.6 10 ^3/uL (1.6-8.6); Nucleated Red Blood Cells % 0.3 %; Red Blood Cells 5.01 10^6/uL (4.0-5.20); Red Cell Distribution Width 13.6 % (11.8-14.3); White Blood Cell 12.3 10^3/uL (4.4-10.8)
[2022-07-16 06:33] LABS: Potassium 4.5 mmol/L (3.5-5.1)
[2022-07-16 06:40] LABS: Albumin 3.1 g/dL (3.4-5.0); BUN/Creatinine Ratio 33.3 (10.0-20.0); Calcium 9.1 mg/dL (8.5-10.1)
[2022-07-16 06:54] LABS: Bilirubin, Total 0.4 mg/dL (0.2-1.0)
[2022-07-16 08:00] VITALS: BP 125/60
[2022-07-16 09:00] VITALS: BP 125/60
[2022-07-16] MEDS: cefTRIAXone 1GM/50ML D5W 50 ML IV SCH (09:54)
[2022-07-16] MEDS: ONDANSETRON HCL 4 MG/2 ML VIAL IV PRN (09:58)
[2022-07-16] MEDS: ALPRAZolam 0.5 MG TAB PO PRN ×2 (09:58→21:45)
[2022-07-16] MEDS: DOCUSATE SOD 100 MG CAP PO PRN (09:58)
[2022-07-16] MEDS: PANTOPRAZOLE 40 MG TAB PO SCH (09:59)
[2022-07-16] MEDS: DOXYCYCLINE 100 MG TAB/CAP PO SCH ×2 (09:59→21:46)
[2022-07-16 13:26] VITALS: BP 117/63
[2022-07-16 17:00] VITALS: BP 157/58
[2022-07-16] MEDS: SENNA 8.6 MG TAB PO SCH (21:46)
[2022-07-16 22:00] VITALS: BP 122/60
[2022-07-16] MEDS: IPRATROPIUM BROM 0.5 MG/2.5ML INH SOL NEB PRN (22:21)
[2022-07-17 05:00] VITALS: BP 124/61
[2022-07-17] MEDS: methylPREDNISolone SOD SUCC 40 MG/ML VL IV SCH ×2 (05:12→14:17)
[2022-07-17] MEDS: SODIUM CHLOR 0.9% PF (SALINE LOCK) 10ML VIAL/SYR IV SCH ×2 (05:12→14:17)
[2022-07-17] MEDS: IPRATROPIUM BROM 0.5 MG/2.5ML INH SOL NEB PRN ×3 (06:03→13:53)
[2022-07-17] MEDS: ALBUTEROL SULF 2.5 MG/0.5ML(0.5%) NEB SOLN NEB SCH ×3 (06:03→13:53)
[2022-07-17 09:03] VITALS: BP 127/69
[2022-07-17] MEDS: cefTRIAXone 1GM/50ML D5W 50 ML IV SCH (09:30)
[2022-07-17] MEDS: DOXYCYCLINE 100 MG TAB/CAP PO SCH (09:30)
[2022-07-17] MEDS: PANTOPRAZOLE 40 MG TAB PO SCH (09:30)
[2022-07-17] MEDS: ALPRAZolam 0.5 MG TAB PO PRN (09:37)
[2022-07-17] MEDS ORDERED: PRED20TA2 PO (11:07)
== END 2022-07-17 16:51 | disposition home health service (06) | DRG 189 ==
LOC: ER 12:09 → TELE 23:58 → TELE-WESTW 07-10 20:58 → WEST WING 07-11 15:22
PROVIDERS: ADMIT Nurse Practitioner Family; ATTEND Internal Medicine Pulmonary Disease
DX: J96.21 Acute and chronic respiratory failure with hypoxia (principal); J44.1 Chronic obstructive pulmonary disease with (acute) exacerbation; F41.9 Anxiety disorder, unspecified; I45.10 Unspecified right bundle-branch block; K44.9 Diaphragmatic hernia without obstruction or gangrene; F32.A Depression, unspecified; R91.1 Solitary pulmonary nodule; E55.9 Vitamin D deficiency, unspecified
CPT/HCPCS: 36415; 36600; 71045; 71250; 76705; 80053; 80061; 81001; 82306; 82607; 82805; 83036; 83735; 83880; 84484; 85025; 85610; 85730; 87070; 87205; 93005; 94003; 94640; 97163; C9113; G0378; J0696; J2405

== ENCOUNTER → 2023-02-07 | Day surgery (SDC) | payer MEDICARE, OTHER ==
[2023-02-05 11:57] LABS: Basophils # (auto) 0 10 ^3/uL (0-0.2); Basophils % (auto) 0.6 % (0.0-2.0); Eosinophils # (auto) 0 10 ^3/uL (0-0.8); Eosinophils % (auto) 0.8 % (0.0-7.0); Hematocrit 42.4 % (36.0-46.0); Hemoglobin 13.8 g/dL (12.2-16.2); Lymphocytes # (auto) 1.6 10 ^3/uL (0.4-5.4); Lymphocytes % (auto) 29.5 % (10.0-50.0); Mean Corpuscular Hemoglobin 29.8 pg (28.0-32.0); Mean Corpuscular Hgb Conc. 32.6 g/dL (32.0-36.0); Mean Corpuscular Volume 91.3 fL (80.0-100.0); Monocytes # (auto) 0.5 10 ^3/uL (0-1.3); Monocytes % (auto) 9.9 % (0.0-12.0); Neutrophils # (auto) 3.3 10 ^3/uL (1.6-8.6); Neutrophils % (auto) 59.2 % (37.0-80.0); Red Blood Cells 4.64 10^6/uL (4.0-5.20); Red Cell Distribution Width 15.1 % (11.8-14.3); White Blood Cell 5.6 10^3/uL (4.4-10.8)
[2023-02-05 12:34] LABS: Alanine Aminotransferase 19 U/L (7-40); Albumin 4.6 g/dL (3.2-4.8); Alkaline Phosphatase 90 U/L (46-116); Anion Gap 8 (5-15); Aspartate Aminotransferase 16 U/L (13-40); BUN/Creatinine Ratio 13.7 (10.0-20.0); Blood Urea Nitrogen 10 mg/dL (9-23); Calcium 9.8 mg/dL (8.5-10.1); Carbon Dioxide 27 mmol/L (20-30); Chloride 107 mmol/L (98-107); Glucose 91 mg/dL (74-106); Potassium 4.3 mmol/L (3.5-5.1); Sodium 142 mmol/L (136-145)
[2023-02-05 12:35] LABS: Bilirubin, Total 0.6 mg/dL (0.2-1.0); Total Protein 6.6 g/dL (5.7-8.2)
[2023-02-05 13:07] LABS: INR 0.99 (0.9-1.15); Partial Thromboplastin Time 24.8 SEC (24.5-34.5); Prothrombin Time 10.6 sec (9.3-11.8)
[~2023-02-07] VITALS: Ht 170.2 cm; Wt 56.2 kg
[~2023-02-07] MED LIST changes: -ALPR0.5T PO; +ALPR1TAB2 PO; -ASCO500T11 PO; -MONT5CHW23 PO; -MULT-1018 PO; -NYS5LQ MT; +SERT25TA84 PO; +SODIUM CHLORIDE LOCK 10 ML ONE; +ZOFR4T PO
[2023-02-07 15:07] VITALS: O2SAT 95
[2023-02-07] MEDS: MIDAZOLAM HCL 5 MG/ML-1ML VIAL ONE ×2 (15:10→15:15)
[2023-02-07] MEDS: fentaNYL CITRATE 100 MCG/2 ML VL ONE ×3 (15:10→15:18)
[2023-02-07] MEDS: diphenhdrAMINE HCL 50 MG/1 ML VL ONE ×2 (15:10→15:14)
[2023-02-07 15:31] VITALS: PULSE 65; RESP 10; TEMP 97.5; O2SAT 98
[2023-02-07 16:14] VITALS: BP 108/54; PULSE 60; RESP 18; O2SAT 94
== END | disposition home or self-care (01) ==
LOC: GI 13:42
PROVIDERS: ATTEND Internal Medicine Gastroenterology
DX: R10.9 Unspecified abdominal pain (principal); D12.6 Benign neoplasm of colon, unspecified; Z86.010 Personal history of colon polyps; K64.8 Other hemorrhoids
CPT/HCPCS: 36415; 45380; 80053; 85025; 85610; 85730; J1200; J2250; J3010; J7030; 99152

== ENCOUNTER → 2023-02-12 | Outpatient (CLI) | payer OTHER ==
[~2023-02-12] MED LIST changes: -SODIUM CHLORIDE LOCK 10 ML ONE
== END | disposition home or self-care (01) ==
LOC: XYW 10:51
PROVIDERS: ATTEND Internal Medicine
DX: I51.7 Cardiomegaly (principal); R00.2 Palpitations
CPT/HCPCS: 93306

== ENCOUNTER → 2023-07-04 | Outpatient (CLI) | payer OTHER ==
[~2023-07-04] MED LIST changes: +AUG875T PO; -HYDR-3682 PO; +LIDOCAINE 2%HCL (LOCAL ANESTH.) INJ 10ml MDV ONE; +MIDAZOLAM HCL 2MG/2ML 2ml VIAL (1mg/ml) IV ONE; +MIDAZOLAM HCL 2MG/2ML 2ml VIAL (1mg/ml) ONE; -PRED20TA2 PO; +fentaNYL CITRATE 100 MCG/2 ML VL IV ONE; +fentaNYL CITRATE 100 MCG/2 ML VL ONE
== END | disposition home or self-care (01) ==
LOC: XYW 08:27
PROVIDERS: ATTEND Internal Medicine
DX: R91.8 Other nonspecific abnormal finding of lung field (principal); J84.10 Pulmonary fibrosis, unspecified; J98.4 Other disorders of lung; J44.9 Chronic obstructive pulmonary disease, unspecified; F41.9 Anxiety disorder, unspecified; F32.A Depression, unspecified; Z87.891 Personal history of nicotine dependence; Z83.6 Family history of other diseases of the respiratory system; Z79.899 Other long term (current) drug therapy; Z98.890 Other specified postprocedural states
CPT/HCPCS: 32408; 71045; 71250; 88305; 88342; J2001; J2250; J3010; 10005; 77012

== ENCOUNTER → 2023-08-06 | Outpatient (CLI) | payer OTHER ==
[~2023-08-06] MED LIST changes: -LIDOCAINE 2%HCL (LOCAL ANESTH.) INJ 10ml MDV ONE; -MIDAZOLAM HCL 2MG/2ML 2ml VIAL (1mg/ml) IV ONE; -MIDAZOLAM HCL 2MG/2ML 2ml VIAL (1mg/ml) ONE; -fentaNYL CITRATE 100 MCG/2 ML VL IV ONE; -fentaNYL CITRATE 100 MCG/2 ML VL ONE
[2023-08-06 14:18] LABS: Basophils # (auto) 0 10 ^3/uL (0-0.2); Basophils % (auto) 0.4 % (0.0-2.0); Eosinophils # (auto) 0.1 10 ^3/uL (0-0.8); Eosinophils % (auto) 0.8 % (0.0-7.0); Hemoglobin 14.1 g/dL (12.2-16.2); Lymphocytes # (auto) 1.6 10 ^3/uL (0.4-5.4); Lymphocytes % (auto) 23.3 % (10.0-50.0); Mean Corpuscular Hemoglobin 28.8 pg (28.0-32.0); Monocytes # (auto) 0.5 10 ^3/uL (0-1.3); Monocytes % (auto) 6.7 % (0.0-12.0); Neutrophils # (auto) 4.8 10 ^3/uL (1.6-8.6); Neutrophils % (auto) 68.8 % (37.0-80.0); Nucleated Red Blood Cells % 0.3 %; Red Blood Cells 4.89 10^6/uL (4.0-5.20); Red Cell Distribution Width 15.6 % (11.8-14.3)
[2023-08-06 14:49] LABS: INR 1.01 (0.9-1.15); Partial Thromboplastin Time 25.7 SEC (24.5-34.5); Prothrombin Time 10.7 sec (9.3-11.8)
[2023-08-06 14:53] LABS: Alanine Aminotransferase 17 U/L (7-40); Albumin 4.6 g/dL (3.2-4.8); Alkaline Phosphatase 118 U/L (46-116); Anion Gap 8 (5-15); Aspartate Aminotransferase 15 U/L (13-40); BUN/Creatinine Ratio 16.2 (10.0-20.0); Blood Urea Nitrogen 11 mg/dL (9-23); Carbon Dioxide 24 mmol/L (20-30); Chloride 107 mmol/L (98-107); Glucose 94 mg/dL (74-106); Potassium 4.2 mmol/L (3.5-5.1); Sodium 139 mmol/L (136-145)
[2023-08-06 14:54] LABS: Bilirubin, Total 0.6 mg/dL (0.2-1.0); Total Protein 6.9 g/dL (5.7-8.2)
== END | disposition home or self-care (01) ==
LOC: LAB 13:54
PROVIDERS: ATTEND Student in an Organized Health Care Education/Training Program
DX: J98.4 Other disorders of lung (principal); Z88.0 Allergy status to penicillin
CPT/HCPCS: 36415; 80053; 83615; 85025; 85610; 85730

== ENCOUNTER → 2023-08-23 | Outpatient (CLI) | payer OTHER ==
[2023-08-23 12:08] LABS: Basophils # (auto) 0 10 ^3/uL (0-0.2); Basophils % (auto) 0.7 % (0.0-2.0); Eosinophils # (auto) 0.1 10 ^3/uL (0-0.8); Hematocrit 39.3 % (36.0-46.0); Lymphocytes # (auto) 1.7 10 ^3/uL (0.4-5.4); Mean Corpuscular Hemoglobin 29.4 pg (28.0-32.0); Mean Corpuscular Volume 89.3 fL (80.0-100.0); Monocytes # (auto) 0.5 10 ^3/uL (0-1.3); Monocytes % (auto) 7.9 % (0.0-12.0); Neutrophils # (auto) 4.3 10 ^3/uL (1.6-8.6); Neutrophils % (auto) 65.4 % (37.0-80.0); Red Cell Distribution Width 14.4 % (11.8-14.3); White Blood Cell 6.7 10^3/uL (4.4-10.8)
[2023-08-23 12:41] LABS: Albumin 4.4 g/dL (3.2-4.8); Alkaline Phosphatase 109 U/L (46-116); Anion Gap 6 (5-15); Aspartate Aminotransferase < 8 U/L (13-40); BUN/Creatinine Ratio 13.6 (10.0-20.0); Bilirubin, Total 0.7 mg/dL (0.2-1.0); Blood Urea Nitrogen 8 mg/dL (9-23); Calcium 9.7 mg/dL (8.5-10.1); Carbon Dioxide 28 mmol/L (20-30); Chloride 108 mmol/L (98-107); Glucose 92 mg/dL (74-106); Potassium 4.1 mmol/L (3.5-5.1); Sodium 142 mmol/L (136-145); Total Protein 6.6 g/dL (5.7-8.2)
[2023-08-23 12:42] LABS: Alanine Aminotransferase < 9 U/L (7-40)
[2023-08-24 12:01] LABS: Cholesterol 192 mg/dL (< 200); Triglycerides 151 mg/dL (< 150)
[2023-08-24 12:03] LABS: HDL Cholesterol 49 mg/dL (40-59)
[2023-08-24 13:10] LABS: LDL Cholesterol 117 mg/dL (< 100)
== END | disposition home or self-care (01) ==
LOC: LAB 11:48
PROVIDERS: ATTEND Nurse Practitioner Family
DX: I10 Essential (primary) hypertension (principal); J44.9 Chronic obstructive pulmonary disease, unspecified; F32.A Depression, unspecified
CPT/HCPCS: 36415; 80053; 80061; 84439; 84443; 85025

== ENCOUNTER 2023-09-05 16:24 | Emergency (ER) | payer OTHER ==
[~2023-09-05] VITALS: Ht 170.2 cm; Wt 55.0 kg
[2023-09-05 16:37] VITALS: PULSE 78; RESP 16; O2SAT 98
[2023-09-05] MEDS: methylPREDNISolone SOD SUCC 125 MG/2 ML VL IV ONE (17:23)
[2023-09-05] MEDS: EPINEPHrine HCL 1 MG/1 ML AMP SC ONE (17:23)
[2023-09-05] MEDS: diphenhdrAMINE HCL 50 MG/1 ML VL IV ONE (17:28)
[2023-09-05 20:00] VITALS: PULSE 77; RESP 15; O2SAT 96
[2023-09-05 23:02] LABS: Basophils # (auto) 0 10 ^3/uL (0-0.2); Basophils % (auto) 0.3 % (0.0-2.0); Eosinophils # (auto) 0 10 ^3/uL (0-0.8); Eosinophils % (auto) 0.1 % (0.0-7.0); Hematocrit 40.4 % (36.0-46.0); Hemoglobin 13.2 g/dL (12.2-16.2); Lymphocytes # (auto) 0.6 10 ^3/uL (0.4-5.4); Lymphocytes % (auto) 8.7 % (10.0-50.0); Mean Corpuscular Hemoglobin 29.3 pg (28.0-32.0); Mean Corpuscular Hgb Conc. 32.7 g/dL (32.0-36.0); Mean Corpuscular Volume 89.5 fL (80.0-100.0); Monocytes # (auto) 0.1 10 ^3/uL (0-1.3); Neutrophils # (auto) 6.4 10 ^3/uL (1.6-8.6); Neutrophils % (auto) 89.9 % (37.0-80.0); Nucleated Red Blood Cells % 0.1 %; Red Blood Cells 4.51 10^6/uL (4.0-5.20); Red Cell Distribution Width 15.1 % (11.8-14.3); White Blood Cell 7.1 10^3/uL (4.4-10.8)
[2023-09-05 23:13] LABS: Chloride 108 mmol/L (98-107); Sodium 143 mmol/L (136-145)
[2023-09-05 23:14] LABS: Anion Gap 14 (5-15); Carbon Dioxide 21 mmol/L (20-30)
[2023-09-05 23:15] LABS: Calcium 9.8 mg/dL (8.7-10.4)
[2023-09-05 23:19] LABS: BUN/Creatinine Ratio 10.6 (10.0-20.0); Blood Urea Nitrogen 9 mg/dL (9-23); Glucose 139 mg/dL (74-106)
[2023-09-05] MEDS: ALPRAZolam 0.5 MG TAB PO ONE (23:21)
[2023-09-05] MEDS: ALBUTEROL SULF 2.5 MG/0.5ML(0.5%) NEB SOLN NEB ONE (23:30)
[2023-09-05] MEDS: IPRATROPIUM BROM 0.5 MG/2.5ML INH SOL NEB ONE (23:30)
[2023-09-06 07:50] VITALS: PULSE 73; RESP 17; O2SAT 99
[2023-09-06 10:30] VITALS: BP 124/83; PULSE 91; RESP 20; TEMP 97.5; O2SAT 95
== END 2023-09-06 10:40 | disposition home or self-care (01) ==
LOC: ER 16:25
DX: T78.40XA Allergy, unspecified, initial encounter (principal); F41.9 Anxiety disorder, unspecified; F32.9 Major depressive disorder, single episode, unspecified; K21.9 Gastro-esophageal reflux disease without esophagitis; J44.9 Chronic obstructive pulmonary disease, unspecified; Z87.891 Personal history of nicotine dependence; Z79.899 Other long term (current) drug therapy; X58.XXXA Exposure to other specified factors, initial encounter
CPT/HCPCS: 36415; 71045; 80048; 83880; 84484; 85025; 94640; 96374; 99285; J1200; J7644

== ENCOUNTER → 2023-09-05 | Outpatient (CLI) | payer OTHER ==
[2023-09-05 13:59] LABS: Alanine Aminotransferase 16 U/L (7-40); Albumin 4.5 g/dL (3.2-4.8); Alkaline Phosphatase 114 U/L (46-116); Anion Gap 3 (5-15); Aspartate Aminotransferase 9 U/L (13-40); BUN/Creatinine Ratio 10.9 (10.0-20.0); Blood Urea Nitrogen 7 mg/dL (9-23); Calcium 9.8 mg/dL (8.5-10.1); Carbon Dioxide 30 mmol/L (20-30); Chloride 108 mmol/L (98-107); Glucose 92 mg/dL (74-106); Potassium 4.2 mmol/L (3.5-5.1); Sodium 141 mmol/L (136-145)
[2023-09-05 14:00] LABS: Bilirubin, Total 0.7 mg/dL (0.2-1.0); Total Protein 6.7 g/dL (5.7-8.2)
== END | disposition home or self-care (01) ==
LOC: LAB 13:22
PROVIDERS: ATTEND Nurse Practitioner Family
DX: R06.02 Shortness of breath (principal); J44.9 Chronic obstructive pulmonary disease, unspecified
CPT/HCPCS: 36415; 80053

== ENCOUNTER 2024-02-01 11:11 | Day surgery (SDC) | payer OTHER ==
[2024-01-30 12:13] LABS: Urine Bacteria None Seen /hpf (None Seen)
[2024-01-30 12:33] LABS: Urine Blood Negative /uL (Negative); Urine Clarity Clear (Clear); Urine Color Light-Yellow (Yellow); Urine Protein, UAD Negative (Negative); Urine Specific Gravity 1.011 (1.001-1.035); Urine Urobilinogen Normal (Negative); Urine WBC 1 /hpf (0 - 5)
[2024-01-30 12:44] LABS: INR 1.03 (0.9-1.15); Partial Thromboplastin Time 25.9 SEC (24.5-34.5); Prothrombin Time 10.9 sec (9.3-11.8)
[2024-01-30 12:49] LABS: Basophils # (auto) 0 10 ^3/uL (0-0.2); Basophils % (auto) 0.6 % (0.0-2.0); Eosinophils # (auto) 0.1 10 ^3/uL (0-0.8); Eosinophils % (auto) 1.3 % (0.0-7.0); Hematocrit 41.2 % (36.0-46.0); Hemoglobin 13.4 g/dL (12.2-16.2); Lymphocytes # (auto) 1.7 10 ^3/uL (0.4-5.4); Lymphocytes % (auto) 24.9 % (10.0-50.0); Mean Corpuscular Hemoglobin 29.9 pg (28.0-32.0); Mean Corpuscular Hgb Conc. 32.6 g/dL (32.0-36.0); Mean Corpuscular Volume 91.6 fL (80.0-100.0); Monocytes # (auto) 0.6 10 ^3/uL (0-1.3); Monocytes % (auto) 8.8 % (0.0-12.0); Neutrophils # (auto) 4.4 10 ^3/uL (1.6-8.6); Neutrophils % (auto) 64.4 % (37.0-80.0); Nucleated Red Blood Cells % 0.1 %; Platelet Count (auto) 205 10^3/uL (140-450); Red Cell Distribution Width 14.5 % (11.8-14.3); White Blood Cell 6.8 10^3/uL (4.4-10.8)
[2024-01-30 13:17] LABS: Alanine Aminotransferase 25 U/L (7-40); Albumin 4.6 g/dL (3.2-4.8); Alkaline Phosphatase 119 U/L (46-116); Anion Gap 6 (5-15); Aspartate Aminotransferase 14 U/L (13-40); Bilirubin, Total 0.6 mg/dL (0.2-1.0); Blood Urea Nitrogen 12 mg/dL (9-23); Calcium 10.1 mg/dL (8.7-10.4); Carbon Dioxide 30 mmol/L (20-31); Chloride 108 mmol/L (98-107); Glucose 91 mg/dL (74-106); Potassium 4.8 mmol/L (3.5-5.1); Sodium 144 mmol/L (136-145)
[~2024-02-01] VITALS: Ht 170.2 cm; Wt 57.6 kg
[~2024-02-01 11:11] MED LIST changes: -AUG875T PO
[2024-02-01] MEDS ORDERED: PROPOFOL 10 MG/ML 20 ML IV ONE (11:12)
[2024-02-01] MEDS ORDERED: fentaNYL CITRATE 100 MCG/2 ML VL ONE (12:35)
[2024-02-01] MEDS ORDERED: ONDANSETRON HCL 4 MG/2 ML VIAL ONE (12:35)
[2024-02-01] MEDS ORDERED: MIDAZOLAM HCL 2MG/2ML 2ml VIAL (1mg/ml) ONE (12:35)
[2024-02-01] MEDS ORDERED: GLYCOPYRROLATE 0.2 MG/ML 1ML VIAL ONE (12:35)
[2024-02-01 13:24] VITALS: RESP 14; TEMP 97.6; O2SAT 94
[2024-02-01 13:46] VITALS: BP 119/54; PULSE 73; RESP 17; O2SAT 94
--- NOTE | 2024-02-01 16:08 | DVHOP2 ---
Operative Report DATE OF OPERATION: 02/01/24 PROCEDURE: Upper Endoscopy with biopsy. PREOPERATIVE INDICATION: The patient is a 73 -year-old female undergoing endoscopy for chronic GERD POSTOPERATIVE DIAGNOSES: 1. Patient had a 2-3 mm benign appearing duodenal bulb polyp that was seen and removed completely via cold biopsy forceps 2. 1-2 cm sliding-type hiatal hernia with slightly irregular squamocolumnar junction from which biopsies were obtained PROCEDURE PERFORMED BY: Jono Solis GI NURSE: Mino SCOPE: Olympus videoendoscope. ASA CLASS:3 PREOPERATIVE MEDICATIONS: Dr. Sujit Marcos PROCEDURE IN DETAIL: After obtaining an informed consent, the patient was placed on left lateral decubitus position. The patient was then sedated with the above medications. A bite block was placed between her teeth. The endoscope was then passed through the oropharynx, into the esophagus, and through the stomach and pylorus up to the second and third part of the duodenum. The endoscope was then withdrawn. Duodenal biopsies were obtained The 2nd and 3rd part of the duodenal were normal. In the duodenal bulb there was a 2-3 mm benign-appearing polyp There was minimal duodenitis. The polyp was removed completely via cold biopsy forceps. Pre-pyloric area and antrum were normal. Gastric biopsies were obtained The gastric lining was essentially unremarkable with no significant gastritis no ulcers. On retroflexion the fundus and cardia were normal as was the angularis The endoscope was then withdrawn the distal esophagus where there was a 1-2 cm sliding-type hiatal hernia with slightly irregular squamocolumnar junction. GE junction biopsies were obtained. The distal esophagus showed mild inflammatory changes and distal esophageal biopsies were obtained. The remaining proximal esophagus and oropharynx were unremarkable. The patient tolerated the procedure well without difficulty. COMPLICATIONS : None SPECIMENS: Duodenal polyp Duodenal biopsies Gastric biopsies GE junction and distal esophageal biopsies DISPOSITION: Stable D/C to home PLAN: 1. Await for biopsy result 2. Will place pt on Protonix 40 mg p.o. daily 3. Lifestyle and dietary modifications for GERD 4. Resume GI soft diet advance as tolerated 5. Outpatient follow up with me in 4-6 weeks to review results and discuss further management JONO SOLIS MD Feb 01, 2024 16:08
== END 2024-02-01 14:00 | disposition home or self-care (01) ==
LOC: GI 11:11
PROVIDERS: ATTEND Internal Medicine Gastroenterology
DX: K21.00 Gastro-esophageal reflux disease with esophagitis, without bleeding (principal); K44.9 Diaphragmatic hernia without obstruction or gangrene; K31.7 Polyp of stomach and duodenum; K29.80 Duodenitis without bleeding; J44.9 Chronic obstructive pulmonary disease, unspecified; F17.200 Nicotine dependence, unspecified, uncomplicated; F41.9 Anxiety disorder, unspecified; Z91.041 Radiographic dye allergy status; Z96.649 Presence of unspecified artificial hip joint; Z98.890 Other specified postprocedural states; Z79.899 Other long term (current) drug therapy
CPT/HCPCS: 36415; 43239; 80053; 81001; 85025; 85610; 85730; 88305; 88312; 88342; J2250; J2405; J2704; J3010; J7030

== ENCOUNTER → 2024-03-12 | Outpatient (CLI) | payer OTHER ==
[~2024-03-12] VITALS: Ht 167.6 cm; Wt 63.0 kg
[2024-03-12] MEDS: REGADENOSON 0.4 MG/5 ML SYRG IV ONE ×2 (10:03→10:10)
--- NOTE | 2024-03-12 14:37 | DVHSR ---
APPROVED REPORT Exam: Nuclear Stress Test Indication: SOB BMI: 0 Medical History Medical History: Cardiomyopathy, COPD, HTN Allergies: Iodine Stress Test Details Stress Test: Pharmacologic stress testing performed using 0.4 mg of regadenoson per 5 mL given IV ov er 10 seconds. HR Resting HR: 72 bpmMax Heart Rate (APMHR): 147.449638 bpm Max HR Achieved: 106 bpmTarget HR (85% APMHR): 124.475299 bpm % of APMHR: 72.11 Recovery HR: 88 bpm BP Resting BP: 139/50 mmHg Recovery BP: 126/70 mmHg ECG Resting ECG: Sinus Rhythm Clinical Reason for Termination: Completed protocol Nurse Comments Recieved pt. from [facility]. A/Ox4 on RA. Connected to alarm security or surveillance monitor, VS stable. PIV flushes well. Reviewed POC. Pt. verbalized understanding of procedure including risks and side ef fects, agrees for stress testing. Lexiscan stress test performed per protocol. SkyBitz administered Cardiolite. Pt. tolerated well . Pt. stable, no change on exam. VS returned to baseline. Transferred to [facility] via wheelchair w/ te ch. Stress ECG Conclusion Resting images shows near homogeneous uptake of radioactive tracer throughout the myocardium without evidence of myocardial infarction. Stress images shows near homogeneous uptake of radioactive tracer throughout the myocardium without e vidence of myocardial ischemia. Well-preserved left ventricular systolic function at 85%. Impression: Negative stress test for ischemia, low risk study. NM EXAM: Myocardial Perfusion REST/STRESS Imaging Protocol: Rest Tc-99m/Stress Tc-99m 1 day Resting Data Rest SPECT myocardial perfusion imaging was performed in supine position 60 minutes following the int ravenous injection of 12.4 mCi of Tc-99m Sestamibi. Time of rest injection: 0900 Time of rest imagin Administration Route: IV Administration Site: Left Hand Pharmacologic Stress Pharmacologic stress test was performed by injecting Regadenoson 0.4 mg IV push followed by the intra venous injection of 31.8 mCi of Tc-99m Sestamibi. Time of stress injection: 1010 Time of stress imagin Administration Route: IV Administration Site: Left Hand Gated Stress SPECT was performed 60 minutes after stress injection. The images were gated to evaluate regional wall motion and calculate left ventricular ejection fracti on. Stress only was performed in the Supine position. Nuclear Conclusion ECG Findings: negative for ischemia Clinical Findings: negative for ischemia Nuclear Findings: negative for ischemia Exercise Capacity: not assessed Left Ventricular Function: normal Risk Study: low Resting images shows near homogeneous uptake of radioactive tracer throughout the myocardium without evidence of myocardial infarction. Stress images shows near homogeneous uptake of radioactive tracer throughout the myocardium without e vidence of myocardial ischemia. Well-preserved left ventricular systolic function at 85%. Impression: Negative stress test for ischemia, low risk study.
== END | disposition home or self-care (01) ==
LOC: XYW 08:34
PROVIDERS: ATTEND Internal Medicine
DX: R06.02 Shortness of breath (principal); I10 Essential (primary) hypertension; I42.9 Cardiomyopathy, unspecified; J44.9 Chronic obstructive pulmonary disease, unspecified; Z88.8 Allergy status to other drugs, medicaments and biological substances; Z91.041 Radiographic dye allergy status
CPT/HCPCS: 78452; 93017; A9500; J2785

== ENCOUNTER → 2024-05-23 | Outpatient (CLI) | payer OTHER | END | disposition home or self-care (01) | LOC: RT 10:25 | PROVIDERS: ATTEND Internal Medicine Pulmonary Disease | DX: J44.9 Chronic obstructive pulmonary disease, unspecified (principal); R06.09 Other forms of dyspnea; F17.210 Nicotine dependence, cigarettes, uncomplicated | CPT/HCPCS: 94060; 94727; 94729 ==

== ENCOUNTER 2024-06-13 09:15 | Day surgery (SDC) | payer OTHER ==
[2024-06-10 11:41] LABS: Urine Bacteria None Seen /hpf (None Seen)
[2024-06-10 11:45] LABS: Basophils # (auto) 0.1 10 ^3/uL (0-0.2); Basophils % (auto) 0.8 % (0.0-2.0); Eosinophils # (auto) 0.1 10 ^3/uL (0-0.8); Eosinophils % (auto) 0.5 % (0.0-7.0); Hematocrit 43.4 % (36.0-46.0); Hemoglobin 14.4 g/dL (12.2-16.2); Lymphocytes # (auto) 2.4 10 ^3/uL (0.4-5.4); Lymphocytes % (auto) 22.2 % (10.0-50.0); Mean Corpuscular Hemoglobin 30.1 pg (28.0-32.0); Mean Corpuscular Hgb Conc. 33.2 g/dL (32.0-36.0); Mean Corpuscular Volume 90.5 fL (80.0-100.0); Monocytes # (auto) 0.8 10 ^3/uL (0-1.3); Monocytes % (auto) 7.8 % (0.0-12.0); Neutrophils # (auto) 7.4 10 ^3/uL (1.6-8.6); Neutrophils % (auto) 68.7 % (37.0-80.0); Platelet Count (auto) 263 10^3/uL (140-450); Red Blood Cells 4.79 10^6/uL (4.0-5.20); White Blood Cell 10.7 10^3/uL (4.4-10.8)
[2024-06-10 12:04] LABS: Urine Blood Negative /uL (Negative); Urine Clarity Clear (Clear); Urine Color Light-Yellow (Yellow); Urine Protein, UAD Negative (Negative); Urine Specific Gravity 1.018 (1.001-1.035); Urine Squamous Epithelial Cell FEW /hpf (<5); Urine Urobilinogen Normal (Negative); Urine WBC 1 /HPF (0-5)
[2024-06-10 12:07] LABS: Partial Thromboplastin Time 24.9 SEC (24.5-34.5); Prothrombin Time 10.6 sec (9.3-11.8)
[2024-06-10 12:43] LABS: Alanine Aminotransferase 16 U/L (7-40); Albumin 4.8 g/dL (3.2-4.8)
[2024-06-10 12:46] LABS: Anion Gap 11 (5-15)
[2024-06-10 12:48] LABS: Aspartate Aminotransferase 10 U/L (13-40); Calcium 9.8 mg/dL (8.7-10.4); Carbon Dioxide 25 mmol/L (20-31); Chloride 106 mmol/L (98-107); Potassium 3.9 mmol/L (3.5-5.1); Sodium 142 mmol/L (136-145)
[2024-06-10 12:52] LABS: BUN/Creatinine Ratio 15.7 (10.0-20.0)
[2024-06-10 12:54] LABS: Alkaline Phosphatase 125 U/L (46-116); Bilirubin, Total 0.8 mg/dL (0.2-1.0); Blood Urea Nitrogen 14 mg/dL (9-23); Glucose 92 mg/dL (74-106); Total Protein 6.9 g/dL (5.7-8.2)
[~2024-06-13] VITALS: Ht 170.2 cm; Wt 63.5 kg
[2024-06-13] MEDS ORDERED: PROPOFOL 10 MG/ML 20 ML IV ONE (10:58)
[2024-06-13 11:19] VITALS: TEMP 96.9; O2SAT 98
--- NOTE | 2024-06-13 11:27 | DVHOP2 ---
Operative Report DATE OF OPERATION: 06/13/24 PROCEDURE: Colonoscopy with hot snare polypectomy. PREOPERATIVE INDICATION: The patient is a 73 -year-old female undergoing colonoscopy for surveillance with personal history of tubular adenoma POSTOPERATIVE DIAGNOSES: 1. 1.5 cm benign-appearing ascending colon polyp was seen and removed completely via hot snare polypectomy 2. There was a 5 mm benign-appearing cecal polyp that was seen and removed by hot snare polypectomy and the specimens were retrieved 3. Mild scattered diverticular disease 4. Trace to 1+ internal hemorrhoids otherwise normal examination up to the terminal ileum PROCEDURE PERFORMED BY: Jono Solis M.D. SCOPE: Olympus videocolonoscope. ASA CLASS: 3. PREOPERATIVE MEDICATIONS: MAC Dr. Mari pope PROCEDURE IN DETAIL: After obtaining an informed consent, the patient was placed on left lateral decubitus position. She was then sedated with the above medications. A rectal examination was performed that was normal. The colonoscope was then passed through the anus into the rectosigmoid and through the descending, transverse, and ascending colon up to the cecum with visualization of the appendiceal orifice, base of the cecum and the ileocecal valve. The colonoscope was then withdrawn. The distal 5-10 cm of the terminal ileum were normal There was a 1-1.5 cm benign-appearing proximal ascending colon polyp that was seen and removed by hot snare polypectomy and the specimens were retrieved There was another 5 mm benign-appearing polyp seen in the base of the cecum that was removed completely via hot snare polypectomy and the specimens were retrieved There was an occasional scattered diverticular opening seen. On retroflexion and straight on view patient had 1+ internal hemorrhoids The patient tolerated the procedure well without difficulty. WITHDRAWAL TIME: 9 minutes QUALITY OF THE PREP: [place] Bowel Prep score: 9. COMPLICATIONS : None SPECIMENS: Ascending colon polyp Cecal polyp DISPOSITION: Stable D/C to home PLAN: 1. Repeat colonoscopy based on pathology results likely in 3-5 2. Resume GI soft diet advance as tolerated; increase fluid and fiber 3. Hold aspirin and blood thinners for five days 4. Outpatient follow up with me in 4-6 weeks to review results and discuss further management JONO SOLIS MD Jun 13, 2024 11:27
[2024-06-13 11:57] VITALS: BP 126/50; PULSE 70; RESP 16; O2SAT 92
== END 2024-06-13 12:05 | disposition home or self-care (01) ==
LOC: GI 09:15
PROVIDERS: ATTEND Internal Medicine Gastroenterology
DX: Z12.11 Encounter for screening for malignant neoplasm of colon (principal); D12.0 Benign neoplasm of cecum; D12.2 Benign neoplasm of ascending colon; K57.30 Diverticulosis of large intestine without perforation or abscess without bleeding; K64.0 First degree hemorrhoids; J44.9 Chronic obstructive pulmonary disease, unspecified; Z88.1 Allergy status to other antibiotic agents; Z91.041 Radiographic dye allergy status; Z96.643 Presence of artificial hip joint, bilateral; Z98.890 Other specified postprocedural states
CPT/HCPCS: 36415; 45385; 80053; 81001; 85025; 85610; 85730; 88305; J2704; J7030

== ENCOUNTER 2024-07-11 13:00 | Inpatient (IN) | payer OTHER ==
[~2024-07-11] VITALS: Ht 170.2 cm; Wt 65.1 kg
--- NOTE | 2024-07-11 13:51 | ECG ---
[facility] Test Date: 2024-07-11 Test Time: 13:18:20 Pat Name: MARC SALAS Department: ER Room: Gender: F [employer]: : 1950 Requested By: BONNIE ENRIQUEZ Order Number: [id number] Reading MD: Measurements Intervals [place] Rate: 89 P: 73 CT: 109 QRS: 77 QRSD: 121 T: 38 QT: 384 QTc: 468 Interpretive Statements Sinus rhythm Short CT interval Right bundle branch block Please click the below link to view image of tracing.
--- NOTE | 2024-07-11 13:56 | ED.PDOC ---
GI ASSESSMENT HPI Comments 74-year-old female with a history of COPD brought in by family complaining of diarrhea for the last 6 days, associated with black stool containing bright red specks believed to be blood for the last 2 days, nausea, vomiting and upper/mid abdominal pain. Patient also notes shortness of breath and the need to increase her home oxygen. She denies fever, cough, chest pain or sick contacts. She does note pressure-like urinary discomfort. Chief Complaint: GI Bleed Time Seen by MD: 14:45 Primary Care Provider: NONE Reviewed Notes: Nurses Notes, Medications, Allergies Allergies: Coded Allergies: Amoxicillin (Verified Allergy, Severe, Anaphylaxis, 03/12/24) Iodine (Verified Allergy, Severe, Anaphylaxis, 03/12/24) Home Meds Reported Medications Sertraline Hcl (Zoloft) Unknown Strength Tab, 100 MG PO DAILY, TAB 02/05/23 Ondansetron Odt 4MG Tab (ZOFRAN PO) 4 Mg Tb, 4 MG PO, TAB ODT TAB-DISSOLVE IN MOUTH, THEN SWALLOW 02/05/23 Omeprazole (Gnp Omeprazole) 20 Mg Tab, 1 TAB PO DAILY 07/11/22 Alprazolam (Xanax) 1 Mg Tab, 1 TAB PO BID 07/11/22 Albuterol Sulfate (VENTOLIN MDI) 90 Mcg Ih, 90 MCG IN PRN for SHORTNESS OF BREATH, INH 09/27/21 Gfhnomfrldz-Abmakwhrfhqt-Gutrz (Trelegy Ellipta 200-62.5-25 Mcg/INH) 1 Aer Aer, 1 AER IN DAILY for COPD, AER 07/08/21 Information Source: Patient Mode of Arrival: Ambulatory Timing: Days Duration: Since onset, Days Prehospital treatment: None Quality: Aching Vomitus: Bilious Stool: Blood Streaked, Loose Severity: Moderate Recent Hx of: None Pain Location: Diffuse Associated sign and symptoms: Nausea, Vomiting, Diarrhea, Hematochezia, Abdomin al Pain Past Medical History PAST MEDICAL HISTORY: Anxiety, COPD (w/ home use of O2), Depression, GERD, UTI'S Past Medical History (Other): Hernia Surgical History (Other): Bilateral Hip Sx IRON MELTER 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 MELTER History Family History Family History: Reviewed,noncontributory to illness, Unknown Social History Smoker: Quit Less Than 1 Year, Cigarettes Alcohol: Denies ETOH Use Drugs: Denies Drug Use Lives In: Home Constitutional: denies: chills, diaphoresis, fatigue, fever, malaise, sweats, weakness, others EENTM: denies: blurred vision, double vision, ear bleeding, ear discharge, ear drainage, ear pain, ear ringing, eye pain, eye redness, hearing loss, mouth pain, mouth swelling, nasal discharge, nose bleeding, nose congestion, nose pain, photophobia, tearing, throat pain, throat swelling, voice changes, others Respiratory: reports: shortness of breath; denies: cough, hemoptysis, orthopnea, SOB at rest, SOB with excertion, stridor, wheezing, others Cardiovascular: denies: chest pain, dizzy spells, diaphoresis, Dyspnea on exertion, edema, irregular heart beat, left arm pain, lightheadedness, palpitations, PND, syncope, others Gastrointestinal: reports: diarrhea, nausea, rectal bleeding, vomiting, others (Hematochezia/Black); denies: abdomen distended, abdominal pain, blood streaked bowels, constipated, dysphagia, difficulty swallowing, hematemesis, melena, poor appetite, poor fluid intake, rectal pain Genitourinary: denies: abnormal vagina bleeding, burning, dyspareunia, dysuria, flank pain, frequency, hematuria, incontinence, pain, , vagina discharge, urgency, others Neurological: denies: dizziness, fainting, headache, left sided numbness, left sided weakness, numbness, paresthesia, pre-existing deficit, right sided numbness, right sided weakness, seizure, speech problems, tingling, tremors, weakness, others Musculoskeletal: denies: back pain, gout, joint pain, joint swelling, muscle pain, muscle stiffness, neck pain, others Integumetry: denies: bruises, change in color, change in hair/nails, dryness, laceration, lesions, lumps, rash, wounds, others Allergic/Immunocompromised: denies: Difficulty Healing, Frequent Infections, Hives, Itching, others Hematologic/Lymphatic: denies: anemia, blood clots, easy bleeding, easy bruising, swollen glands, others Endocrine: denies: excessive hunger, excessive sweating, excessive thirst, excessive urination, flushing, intolerance to cold, intolerance to heat, unexplained weight gain, unexplained weight loss, others Psychiatric: denies: anxiety, bipolar disorder, depression, hopeless, panic disorder, schizophrenia, sleepless, suicidal, others All Other Systems: Reviewed and Negative Physical Exam General Appearance: Mild Distress HEENT: Other (Pupils and face symmetric. Dry mucous membranes.) Neck: Full Range of Motion, Normal Inspection Respiratory: Decreased Breath Sounds, No Accessory Muscle Use, No Respiratory Distress Cardiovascular: No Edema, No JVD, Regular Rate/Rhythm Breast Exam: Deferred Gastrointestinal: Epigastric, Soft, Tenderness (Mid abdominal) Genitalia: Deferred Pelvic: Deferred, No cerv. Motion Tender Rectal: Deferred Extremities: Normal inspection, Normal range of motion, Non-tender, No pedal edema Neurologic: Alert (Oriented x4), Normal Affect, Other (Anxious. Ambulatory without difficulty.) Cerebellar Function: NOT DONE Reflexes: NOT DONE Skin: Dry, Normal Color, Warm Lymphatic: NOT DONE EKG EKG : Comments Sinus rhythm, rate 89, normal MA interval, QRS and QTC intervals slightly prolonged, normal axis, right bundle-branch block, nonspecific T changes. Was a procedure done? Was a procedure done?: No GI differential Dx Differential Diagnosis: Diverticular disease, Gastritis/PUD, Gastroenteritis, GI hemorrhage, Inflammatory BD, Ischemic Bowel, Pancreatitis, UTI, Dehydration, Diabetes/ DKA, Electrolyte Imbalance, Food Poisoning, Bacterial, Viral, Hypovolemia, Renal Failure, Anemia, Stress Ulcer, Kidney Stone X-Ray, Labs, Meds, VS Vital Signs Date Time Temp Pulse Resp B/P (MAP) Pulse Ox O2 Delivery O2 Flow Rate FiO2 07/11/24 14:50 18 96 Nasal Cannula* 2 28 07/11/24 14:29 88 22 96 Room Air* 0 21 07/11/24 14:23 90 15 134/74 07/11/24 14:23 97.4 94 17 134/74 (94) 94 97.4 07/11/24 13:36 98.4 86 16 126/82 (97) 96 98.4 07/11/24 13:18 89 07/11/24 13:13 98.5 89 20 136/69 (91) 97 98.5 Lab Test 07/11/24 14:24 07/11/24 14:00 Range/Units Urine Color Light-yellow Yellow Urine Clarity Turbid H Clear Urine pH 5.5 5.0-9.0 Urine Specific [place] 1.022 1.001-1.035 Urine Protein Negative Negative Urine Ketones Negative Negative Urine Blood Negative Negative /uL Urine Nitrite Negative Negative Urine Bilirubin Negative Negative Urine Urobilinogen Normal Negative mg/dL Urine Leukocyte Esterase 2+ Negative /uL Urine RBC 1 0 - 4 /hpf Urine Microscopic WBC 1 0-5 /HPF Urine Squamous Epithelial Cells Few <5 /hpf Urine Bacteria None seen None Seen /hpf Urine Mucus Few None Seen Urine Glucose Normal Normal mg/dL White Blood Count 6.7 4.4-10.8 10^3/uL Red Blood Count 4.61 4.0-5.20 10^6/uL Hemoglobin 13.8 12.2-16.2 g/dL Hematocrit 41.9 36.0-46.0 % Mean Corpuscular Volume 90.9 80.0-100.0 fL Mean Corpuscular Hemoglobin 30.0 28.0-32.0 pg Mean Corpuscular Hemoglobin Concent 33.0 32.0-36.0 g/dL Red Cell Distribution Width 15.2 H 11.8-14.3 % Platelet Count 302 140-450 10^3/uL Mean Platelet Volume 8.6 6.9-10.8 fL Neutrophils (%) (Auto) 70.9 37.0-80.0 % Lymphocytes (%) (Auto) 19.7 10.0-50.0 % Monocytes (%) (Auto) 8.6 0.0-12.0 % Eosinophils (%) (Auto) 0.4 0.0-7.0 % Basophils (%) (Auto) 0.4 0.0-2.0 % Neutrophils # (Auto) 4.7 1.6-8.6 10 ^3/uL Lymphocytes # (Auto) 1.3 0.4-5.4 10 ^3/uL Monocytes # (Auto) 0.6 0-1.3 10 ^3/uL Eosinophils # (Auto) 0 0-0.8 10 ^3/uL Basophils # (Auto) 0 0-0.2 10 ^3/uL Nucleated Red Blood Cells 0.1 % Sodium Level 141 136-145 mmol/L Potassium Level 4.2 3.5-5.1 mmol/L Chloride Level 107 98-107 mmol/L Carbon Dioxide Level 23 20-31 mmol/L Anion Gap 11 5-15 Blood Urea Nitrogen 11 9-23 mg/dL Creatinine 0.74 0.550-1.02 mg/dL Glomerular Filtration Rate Calc 85 >90 mL/min BUN/Creatinine Ratio 14.9 10.0-20.0 Serum Glucose 97 74-106 mg/dL Lactic Acid Level 1.1 0.4-2.0 mmol/L Calcium Level 9.6 8.7-10.4 mg/dL Total Bilirubin 0.5 0.2-1.0 mg/dL Aspartate Amino Transferase (AST) 11 L 13-40 U/L Alanine Aminotransferase (ALT) 17 7-40 U/L Alkaline Phosphatase 129 H 46-116 U/L Troponin I High Sensitivity < 3 L </=34 ng/L B-Type Natriuretic Peptide 22.44 0-100 pg/mL Total Protein 6.5 5.7-8.2 g/dL Albumin 4.6 3.2-4.8 g/dL Lipase 39 12-53 U/L Current Medications Medications (Trade) Dose Ordered Sig/Kulwinder Route Start Time Stop Time Status Last Admin Sodium Chloride 1,000 ml @ 1,000 mls/hr Q1H ONCE IV 07/11/24 14:00 07/11/24 14:59 DC 07/11/24 14:23 Ondansetron HCl (Zofran) 4 mg ONCE ONCE IV 07/11/24 14:00 07/11/24 14:01 DC 07/11/24 14:24 Pantoprazole Sodium (Protonix) 40 mg ONCE ONCE IV 07/11/24 14:00 07/11/24 14:01 DC 07/11/24 14:20 Lorazepam (Ativan Inj) 0.5 mg ONCE ONCE IV 07/11/24 14:00 07/11/24 14:01 DC 07/11/24 14:20 Morphine Sulfate 4 mg ONCE ONCE IV 07/11/24 14:00 07/11/24 14:01 DC 07/11/24 14:23 Albuterol (Ventolin Medneb) 5 mg ONCE ONCE NEB 07/11/24 14:00 07/11/24 14:01 DC 07/11/24 14:50 Ipratropium [place] (Atrovent Medneb) 0.5 mg ONCE ONCE NEB 07/11/24 14:00 07/11/24 14:01 DC 07/11/24 14:50 Methylprednisolone Sodium Succinate (Solu Medrol) 125 mg ONCE ONCE IV 07/11/24 14:00 07/11/24 14:01 DC 07/11/24 14:21 PROCEDURE(s): CXRP - CHEST PORTABLE REASON: sob ORDER NUMBER(s): [id number], ACCESSION NUMBER(s): [id number] EXAM: XY CHEST PORTABLE HISTORY: sob COMPARISON: XY CHEST PORTABLE on DOS: 09/05/23, XY CHEST PORTABLE on DOS: 07/04/23, XY CHEST PORTABLE on DOS: 07/04/23, XY CHEST PORTABLE on DOS: 07/08/22, CHEST PORTABLE on DOS: 02/23/22, CT scan of the chest dated 07/04/2023. TECHNIQUE: PA upright view of the chest was performed. FINDINGS: Right upper lobe scarring is stable. There is new scarring or atelectasis in the right lower lobe. Emphysematous changes are better characterized on prior CT scan. No pneumothorax or pulmonary edema. The heart is not enlarged. IMPRESSION: 1. Stable right upper lobe scarring and new right basilar scarring versus atelectasis. 2. Emphysema. EDURE(s): ABPL - CT AB PEL WO CON-NO ORAL OR IV REASON: upper and mid abd pain, n/v/d, black stool ORDER NUMBER(s): [id number], ACCESSION NUMBER(s): [id number] EXAM: CT CT AB PEL WO CON-NO ORAL OR IV HISTORY: upper and mid abd pain, n/v/d, black stool COMPARISON: CT CHST AB PEL WO CON-NO IV/ORAL on DOS: 03/30/23, CT ABD PELVIS WO CONTRAST on DOS: 09/12/21, ECIDC on DOS: 07/13/21 TECHNIQUE: Helical CT images of the abdomen and pelvis were performed without IV contrast. Sagittal and coronal reformatted images were obtained. This CT exam was performed using one or more of the following dose reduction techniques: Automated exposure control, adjustment of the mA and/or kv according to patient size, or the use of iterative reconstruction techniques. Radiation Dose: Abdomen/Pelvis: CTDIvol 9.4 mGy, DLP 431.96 mGy*cm. FINDINGS: CT abdomen: There are ground-glass opacities in the lower lobes, right greater than left, slightly increased versus prior CT scan of the chest performed 8 days earlier. There is peribronchial thickening in the right lower lobe. The heart is borderline enlarged. There is a small sliding hiatal hernia. The liver is enlarged up to 20 cm longitudinal. The right kidney is malrotated, with collecting system duplication The noncontrast spleen, gallbladder, pancreas, left kidney, and bilateral adrenal glands are unremarkable. No abdominal aortic aneurysm. CT pelvis: No abnormal bowel dilatation, free air, or free fluid. The appendix is dilated up to 7.2 mm, contains dense intraluminal substance, without single wall thickening or periappendiceal fat stranding. The lower pelvis is difficult to evaluate secondary to extensive beam hardening artifact from bilateral total hip arthroplasties. There are chronic appearing spinal fractures including inferior endplate of T11, superior endplate of T12, inferior endplate of L1, inferior endplate of L2, inferior endplate of L3. IMPRESSION: 1. Ground-glass opacities in the lower lobes may be due to scarring, atelectasis, or mild pneumonia. There is evidence of Reactive airways disease in the right lower lobe. 2. Small sliding hiatal hernia. 3. Hepatomegaly. 4. Mild appendiceal dilatation without other evidence of acute appendicitis. 5. Postoperative changes of bilateral total hip arthroplasties. 6. Multiple chronic appearing spinal fractures as above. 7. No evidence of bowel obstruction or other acute process in the abdomen or pelvis. X-Ray, Labs, Meds, VS Comment 74-year-old female with a history of COPD, GERD and anxiety complaining of abdominal pain, nausea, vomiting, diarrhea, black stools containing possible bright red blood and shortness of breath Vitals unremarkable Exam remarkable for epigastric and mid abdominal tenderness to palpation and diminished breath sounds at both lung bases Rhythm strip independently interpreted by me: Sinus rhythm, rate 89, no ectopy. Chest x-ray IMPRESSION: 1. Stable right upper lobe scarring and new right basilar scarring versus atelectasis. 2. Emphysema. CT abdomen and pelvis IMPRESSION: 1. Ground-glass opacities in the lower lobes may be due to scarring, atelectasis, or mild pneumonia. There is evidence of Reactive airways disease in the right lower lobe. 2. Small sliding hiatal hernia. 3. Hepatomegaly. 4. Mild appendiceal dilatation without other evidence of acute appendicitis. 5. Postoperative changes of bilateral total hip arthroplasties. 6. Multiple chronic appearing spinal fractures as above. 7. No evidence of bowel obstruction or other acute process in the abdomen or pelvis. CBC and CMP unremarkable, lipase, BNP normal, troponin negative, lactic normal, UA Patient treated with the following in the ED: 1 L 0.9 normal saline IV bolus, morphine 4 mg IV, Zofran 4 mg IV, Ativan 0.5 mg IV, Protonix 40 mg IV, Levaquin 500 mg IV On re-evaluation, symptoms are improving. Vitals are stable. Plan is to admit the patient for respiratory support and GI evaluation for possible GI bleeding. Time of 1ST Reevaluation: 14:15 Reevaluation 1ST: Unchanged Patient Education/Counseling: Diagnosis, Treatment, Prognosis Family Education/Counseling: No Family Present Departure 1 Departure Time of Disposition: 15:12 Impression: Primary Impression: COPD with acute exacerbation Additional Impressions: Abdominal pain Qualified Codes: R10.9 - Unspecified abdominal pain Vomiting and diarrhea Disposition: ADMITTED INPATIENT Admit to: Tele Condition: Guarded Critical Care Note Critical Care Time?: No Stability Stability form required: No Heart Score Heart Score: Heart Score Response (Comments) Value History N/A 0 EKG N/A 0 Age N/A 0 Risk Factors N/A 0 Troponin N/A 0 Total 0 I personally scribed for BONNIE BARRON MD ([email or web address]) on 07/11/24 at 13:56. Electronically submitted by William Eddy ([email or web address]). BONNIE BARRON MD Jul 11, 2024 13:56
[2024-07-11] MEDS: PANTOPRAZOLE 40 MG/10 ML VIAL INJ IV ONE (14:20)
[2024-07-11] MEDS: LORazepam 2MG/ML-1ML VIAL IV ONE (14:20)
[2024-07-11] MEDS: methylPREDNISolone SOD SUCC 125 MG/2 ML VL IV ONE (14:21)
[2024-07-11 14:22] LABS: Basophils # (auto) 0 10 ^3/uL (0-0.2); Basophils % (auto) 0.4 % (0.0-2.0); Eosinophils # (auto) 0 10 ^3/uL (0-0.8); Eosinophils % (auto) 0.4 % (0.0-7.0); Hematocrit 41.9 % (36.0-46.0); Hemoglobin 13.8 g/dL (12.2-16.2); Lymphocytes # (auto) 1.3 10 ^3/uL (0.4-5.4); Lymphocytes % (auto) 19.7 % (10.0-50.0); Mean Corpuscular Volume 90.9 fL (80.0-100.0); Monocytes # (auto) 0.6 10 ^3/uL (0-1.3); Monocytes % (auto) 8.6 % (0.0-12.0); Neutrophils # (auto) 4.7 10 ^3/uL (1.6-8.6); Neutrophils % (auto) 70.9 % (37.0-80.0); Nucleated Red Blood Cells % 0.1 %; Platelet Count (auto) 302 10^3/uL (140-450); Red Blood Cells 4.61 10^6/uL (4.0-5.20); Red Cell Distribution Width 15.2 % (11.8-14.3); White Blood Cell 6.7 10^3/uL (4.4-10.8)
[2024-07-11] MEDS: MORPHINE SULFATE 4 MG/ML SYR/VIAL IV ONE (14:23)
[2024-07-11] MEDS: SODIUM CHLORIDE 0.9% 1,000 ML IV ONE (14:23)
[2024-07-11] MEDS: ONDANSETRON HCL 4 MG/2 ML VIAL IV ONE (14:24)
[2024-07-11 14:29] VITALS: PULSE 88; RESP 22; O2SAT 96
[2024-07-11 14:40] LABS: Alanine Aminotransferase 17 U/L (7-40); Albumin 4.6 g/dL (3.2-4.8); Anion Gap 11 (5-15); BUN/Creatinine Ratio 14.9 (10.0-20.0); Bilirubin, Total 0.5 mg/dL (0.2-1.0); Blood Urea Nitrogen 11 mg/dL (9-23); Calcium 9.6 mg/dL (8.7-10.4); Carbon Dioxide 23 mmol/L (20-31); Glucose 97 mg/dL (74-106); Lipase 39 U/L (12-53); Potassium 4.2 mmol/L (3.5-5.1); Sodium 141 mmol/L (136-145); Total Protein 6.5 g/dL (5.7-8.2)
[2024-07-11 14:41] LABS: Alkaline Phosphatase 129 U/L (46-116); Aspartate Aminotransferase 11 U/L (13-40); Chloride 107 mmol/L (98-107)
[2024-07-11 14:47] LABS: Urine Bacteria None Seen /hpf (None Seen)
--- NOTE | 2024-07-11 14:49 | DVH ---
EXAM: CT CT AB PEL WO CON-NO ORAL OR IV HISTORY: upper and mid abd pain, n/v/d, black stool COMPARISON: CT CHST AB PEL WO CON-NO IV/ORAL on DOS: 03/30/23, CT ABD PELVIS WO CONTRAST on DOS: 2, ECIDC on DOS: 07/13/21 TECHNIQUE: Helical CT images of the abdomen and pelvis were performed without IV contrast. Sagittal a nd coronal reformatted images were obtained. This CT exam was performed using one or more of the foll owing dose reduction techniques: Automated exposure control, adjustment of the mA and/or kv according to patient size, or the use of iterative reconstruction techniques. Radiation Dose: Abdomen/Pelvis: CTDIvol 9.4 mGy, DLP 431.96 mGy*cm. FINDINGS: CT abdomen: There are ground-glass opacities in the lower lobes, right greater than left, slightly in creased versus prior CT scan of the chest performed 8 days earlier. There is peribronchial thickenin g in the right lower lobe. The heart is borderline enlarged. There is a small sliding hiatal hernia. The liver is enlarged up to 20 cm longitudinal. The right kidney is malrotated, with collecting syst em duplication The noncontrast spleen, gallbladder, pancreas, left kidney, and bilateral adrenal gla nds are unremarkable. No abdominal aortic aneurysm. CT pelvis: No abnormal bowel dilatation, free air, or free fluid. The appendix is dilated up to 7.2 m m, contains dense intraluminal substance, without single wall thickening or periappendiceal fat stran ding. The lower pelvis is difficult to evaluate secondary to extensive beam hardening artifact from bilateral total hip arthroplasties. There are chronic appearing spinal fractures including inferior e ndplate of T11, superior endplate of T12, inferior endplate of L1, inferior endplate of L2, inferior endplate of L3. IMPRESSION: 1. Ground-glass opacities in the lower lobes may be due to scarring, atelectasis, or mild pneumonia. There is evidence of Reactive airways disease in the right lower lobe. 2. Small sliding hiatal hernia. 3. Hepatomegaly. 4. Mild appendiceal dilatation without other evidence of acute appendicitis. 5. Postoperative changes of bilateral total hip arthroplasties. 6. Multiple chronic appearing spinal fractures as above. 7. No evidence of bowel obstruction or other acute process in the abdomen or pelvis.
[2024-07-11] MEDS: IPRATROPIUM BROM 0.5 MG/2.5ML INH SOL NEB ONE (14:50)
[2024-07-11] MEDS: ALBUTEROL SULF 2.5 MG/0.5ML(0.5%) NEB SOLN NEB ONE (14:50)
--- NOTE | 2024-07-11 14:51 | DVH ---
EXAM: XY CHEST PORTABLE HISTORY: sob COMPARISON: XY CHEST PORTABLE on DOS: 09/05/23, XY CHEST PORTABLE on DOS: 07/04/23, XY CHEST PORTABLE o n DOS: 07/04/23, XY CHEST PORTABLE on DOS: 07/08/22, CHEST PORTABLE on DOS: 02/23/22, CT scan of the [facility] st dated 07/04/2023. TECHNIQUE: PA upright view of the chest was performed. FINDINGS: Right upper lobe scarring is stable. There is new scarring or atelectasis in the right lower lobe. Em physematous changes are better characterized on prior CT scan. No pneumothorax or pulmonary edema. Th e heart is not enlarged. IMPRESSION: 1. Stable right upper lobe scarring and new right basilar scarring versus atelectasis. 2. Emphysema.
[2024-07-11 14:57] LABS: Urine Blood Negative /uL (Negative); Urine Clarity Turbid (Clear); Urine Color Light-Yellow (Yellow); Urine Mucus FEW (None Seen); Urine Protein, UAD Negative (Negative); Urine Specific Gravity 1.022 (1.001-1.035); Urine Squamous Epithelial Cell FEW /hpf (<5); Urine Urobilinogen Normal (Negative); Urine WBC 1 /HPF (0-5); Urine pH 5.5 (5.0-9.0)
[2024-07-11] MEDS ORDERED: MORPHINE SULFATE INJ 2 MG/ml SYRG IV PRN (16:00)
[2024-07-11] MEDS ORDERED: NITROGLYCERIN 0.4 MG SL TAB SL PRN (16:00)
[2024-07-11] MEDS ORDERED: IPRATROPIUM BROM 0.5 MG/2.5ML INH SOL NEB PRN (16:30)
[2024-07-11] MEDS ORDERED: ENOXAPARIN SOD 40 MG/0.4 ML SYRINGE SC ONE (16:30)
[2024-07-11] MEDS ORDERED: ALBUTEROL SULF 2.5 MG/0.5ML(0.5%) NEB SOLN NEB PRN (16:30)
[2024-07-11 16:44] VITALS: BP 131/68; PULSE 82; RESP 18; TEMP 97.4; O2SAT 96
--- NOTE | 2024-07-11 16:57 | DVHHPRES ---
History of Present Illness Resident Creating Document: ADRIA MURILLO RESIDENT History of Present Illness Patient is 71 years old female with past medical of COPD, on home oxygen 2-3 L/min, anxiety, right upper lobe nodule, hemorrhoids, history of pneumonia came with a complaint of bloody diarrhea. As per patient she started having diarrhea on Sunday almost 6 days before, initially diarrhea was 4 times a day, it was watery but since Sunday 3 days stool is black in color, with some bloody speckles. Patient also endorsed nausea and vomiting started Sunday, watery, no blood. On further discussion also patient endorsed abdominal pain epigastric, 10/02, radiating to the left lower abdomen, Joshua, gradual in nature, associated with eating. Patient did not any fever, any chest pain no or worsening short of breath or palpitation. On initial lab workup hemoglobin stable with 13.8, no leukocytosis, no electrolyte imbalance, lipase within normal limit. Other in itial lab work with a normal limit. CT abdomen revealed- 1. Ground-glass opacities in the lower lobes may be due to scarring, atelectasis, or mild pneumonia. There is evidence of Reactive airways disease in the right lower lobe. Small sliding hiatal hernia. Hepatomegaly. Mild appendiceal dilatation without other evidence of acute appendicitis.Postoperative changes of bilateral total hip arthroplasties. Multiple chronic appearing spinal fractures as above. No bowel obstruction. CXR- Stable right upper lobe scarring and new right basilar scarring versus atelectasis. Emphysema. Past Medical History COPD, on home oxygen 2-3 L/min, anxiety, right upper lobe nodule, hemorrhoids, history of pneumonia Past Surgical History Bilateral hip surgery Past Social History Ex-smoker, quit 2 years before, used to be 1 pack per year, denies alcoholism or drug abuse. Review of Systems Review of Systems Patient was seen today at the bedside. P Cardiovascular- deny acute chest pain or palpitation Respiratory denies cough or short of breath or wheezing Musculoskeletal-denies acute joint swelling or tenderness or redness Neurological- denies acute dysarthria, dysphagia, change in vision Psychiatry- denies depression or SI or HI Skin- denies acute rash or purpura Other Home meds omeprazole, albuterol inhaler, Trelegy, Xanax, lactulose, hydroxyzine Allergies: Coded Allergies: Amoxicillin (Verified Allergy, Severe, Anaphylaxis, 03/12/24) Iodine (Verified Allergy, Severe, Anaphylaxis, 03/12/24) Medications Current Medications Medications Dose Ordered Sig/Kulwinder Route Start Time Stop Time Status Last Admin Dose Admin Sodium Chloride 10 ml Q8HR IV 07/11/24 22:00 Nitroglycerin 0.4 mg Q5MINP PRN SL 07/11/24 16:00 Morphine Sulfate 2 mg Q30M PRN IV 07/11/24 16:00 Pantoprazole Sodium 40 mg BID IV 07/11/24 22:00 Sodium Chloride 1,000 ml @ 100 mls/hr Q10H IV 07/11/24 16:30 Enoxaparin Sodium 40 mg DAILY SC 07/12/24 10:00 UNV Ipratropium [place] 0.5 mg Q6HPRN PRN NEB 07/11/24 16:30 Albuterol 2.5 mg Q6HPRN PRN NEB 07/11/24 16:30 Exam Vital Signs Vital Signs Date Time Temp Pulse Resp B/P (MAP) Pulse Ox O2 Delivery O2 Flow Rate FiO2 07/11/24 15:25 85 18 131/68 (89) 95 07/11/24 14:50 Nasal Cannula* 2 28 07/11/24 14:23 97.4 97.4 Exam General examination- awake, alert, oriented HEENT- PEERLA, no acute nasal discharge Cardiovascular- S1-S2 audible, rate and rhythm regular, no murmur Respiratory- CTAB, no wheeze or rhonchi Gastrointestinal-mild abdominal tenderness+, bowel sound+. Nondistended Musculoskeletal-no acute joint swelling or tenderness or redness Lower extremity- no leg edema Neurological- cranial nerves intact, no acute dysarthria or dysphagia Psychiatry- denies depression or SI or HI Skin- no acute rash or purpura Labs/Xrays Labs Test 07/11/24 14:57 07/11/24 14:24 07/11/24 14:00 Range/Units Troponin I High Sensitivity < 3 L </=34 ng/L Urine Color Light-yellow Yellow Urine Clarity Turbid H Clear Urine pH 5.5 5.0-9.0 Urine Specific [place] 1.022 1.001-1.035 Urine Protein Negative Negative Urine Ketones Negative Negative Urine Blood Negative Negative /uL Urine Nitrite Negative Negative Urine Bilirubin Negative Negative Urine Urobilinogen Normal Negative mg/dL Urine Leukocyte Esterase 2+ Negative /uL Urine RBC 1 0 - 4 /hpf Urine Microscopic WBC 1 0-5 /HPF Urine Squamous Epithelial Cells Few <5 /hpf Urine Bacteria None seen None Seen /hpf Urine Mucus Few None Seen Urine Glucose Normal Normal mg/dL White Blood Count 6.7 4.4-10.8 10^3/uL Red Blood Count 4.61 4.0-5.20 10^6/uL Hemoglobin 13.8 12.2-16.2 g/dL Hematocrit 41.9 36.0-46.0 % Mean Corpuscular Volume 90.9 80.0-100.0 fL Mean Corpuscular Hemoglobin 30.0 28.0-32.0 pg Mean Corpuscular Hemoglobin Concent 33.0 32.0-36.0 g/dL Red Cell Distribution Width 15.2 H 11.8-14.3 % Platelet Count 302 140-450 10^3/uL Mean Platelet Volume 8.6 6.9-10.8 fL Neutrophils (%) (Auto) 70.9 37.0-80.0 % Lymphocytes (%) (Auto) 19.7 10.0-50.0 % Monocytes (%) (Auto) 8.6 0.0-12.0 % Eosinophils (%) (Auto) 0.4 0.0-7.0 % Basophils (%) (Auto) 0.4 0.0-2.0 % Neutrophils # (Auto) 4.7 1.6-8.6 10 ^3/uL Lymphocytes # (Auto) 1.3 0.4-5.4 10 ^3/uL Monocytes # (Auto) 0.6 0-1.3 10 ^3/uL Eosinophils # (Auto) 0 0-0.8 10 ^3/uL Basophils # (Auto) 0 0-0.2 10 ^3/uL Nucleated Red Blood Cells 0.1 % Sodium Level 141 136-145 mmol/L Potassium Level 4.2 3.5-5.1 mmol/L Chloride Level 107 98-107 mmol/L Carbon Dioxide Level 23 20-31 mmol/L Anion Gap 11 5-15 Blood Urea Nitrogen 11 9-23 mg/dL Creatinine 0.74 0.550-1.02 mg/dL Glomerular Filtration Rate Calc 85 >90 mL/min BUN/Creatinine Ratio 14.9 10.0-20.0 Serum Glucose 97 74-106 mg/dL Lactic Acid Level 1.1 0.4-2.0 mmol/L Calcium Level 9.6 8.7-10.4 mg/dL Total Bilirubin 0.5 0.2-1.0 mg/dL Aspartate Amino Transferase (AST) 11 L 13-40 U/L Alanine Aminotransferase (ALT) 17 7-40 U/L Alkaline Phosphatase 129 H 46-116 U/L B-Type Natriuretic Peptide 22.44 0-100 pg/mL Total Protein 6.5 5.7-8.2 g/dL Albumin 4.6 3.2-4.8 g/dL Lipase 39 12-53 U/L Assessment/Plan Assessment/Plan Assessment and plan # bloody stool likely due to acute GI bleeding Acute diarrhea with the intractable nausea and vomiting likely due to acute gastroenteritis likely viral COPD, no exacerbation History of pulmonary nodule History of hemorrhoids Emphysema Likely atelectasis, no pneumonia Ground-glass opacities in the lower lobes may be due to scarring, atelectasis, Small sliding hiatal hernia. Hepatomegaly. Mild appendiceal dilatation without other evidence of acute appendicitis .Postoperative changes of bilateral total hip arthroplasties. Multiple chronic appearing spinal fractures as above. Continue pantoprazole 40 mg IV b.i.d. IV normal saline as prescribed Continue nebulization as prescribed Avoid dehydration NPO until further order Monitor CBC, CMP Ordered GI consult for further evaluation and care Goals of care, Code status ; discussed with >15 minutes PUD prophylaxis: Pantoprazole DVT prophylaxis: Suspected GI bleeding Plan discussed with Dr. Kaminski , nursing staff, Total time spent on patient evaluation, chart review, assessment and plan, discussion discussion >35 minutes Plan discussed with: Patient, Other (RN) My Orders Orders - ADRIA MURILLO RESIDENT Procedure Category Date Status Time Admit ADMIT 07/11/24 Transmitted 15:48 Code Status CODE 07/11/24 Transmitted 15:48 Vital Signs SOPHIA 07/11/24 In Process 15:48 Review Orders With SOPHIA 07/11/24 In Process Adm. 15:48 Npo (Nothing By DIET 07/11/24 Transmitted Mouth) Diet Dinner Sodium Chloride Lock PHA 07/11/24 In Process (Saline Lock Ns) 22:00 Notify Of Changes SOPHIA 07/11/24 In Process From Base 15:48 Advance Directive SOPHIA 07/11/24 In Process 15:48 Urinalysis LAB 07/11/24 Logged 15:48 Allergies SOPHIA 07/11/24 In Process 15:48 Nitroglycerin PHA 07/11/24 In Process Sublingual (Ntrostat 16:00 Morphine Sulfate PHA 07/11/24 In Process Injection 16:00 Oxygen By Nasal RT 07/11/24 Transmitted Cannula 15:48 Stat Ekg For Chest SOPHIA 07/11/24 In Process Pain 15:48 Notify Of Changes SOPHIA 07/11/24 In Process From Base 15:48 Licensed Guide For SOPHIA 07/11/24 In Process 24 Hours 15:48 Emergency Dysrhythmia SOPHIA 07/11/24 In Process Protocol 15:48 Rhythm Strips Once SOPHIA 07/11/24 In Process Every Shift 15:48 Pantoprazole PHA 07/11/24 In Process (Protonix) 22:00 Sodium Chloride 0.9% PHA 07/11/24 In Process 16:30 Enoxaparin Sodium PHA 07/11/24 Logged (Lovenox) 16:30 Enoxaparin Sodium PHA 07/12/24 Pending (Lovenox) 10:00 Ipratropium Medneb PHA 07/11/24 In Process (Atrovent Medneb) 16:30 Albuterol Medneb PHA 07/11/24 In Process (Ventolin Medneb) 16:30 * Gi Dvh Swaging Machine Operator CONS 07/11/24 Transmitted 16:29 Date of Service: Jul 11, 2024 Billing Provider: JODY SHARP MD Common Visit Codes: [id number] INP/OBS CARE (HIGH) ADRIA MURILLO RESIDENT Jul 11, 2024 16:57 JODY SHARP MD Jul 11, 2024 19:04
[2024-07-11] MEDS ORDERED: IPRATROPIUM BROM 0.5 MG/2.5ML INH SOL NEB SCH (18:30)
[2024-07-11 18:35] LABS: Hematocrit 40.3 % (36.0-46.0); Hemoglobin 13.4 g/dL (12.2-16.2)
--- NOTE | 2024-07-11 19:25 | DVHINCON2 ---
Date of service: Jul 11, [address] teran Reason for Consultation Bloody diarrhea History of Present Illness This 71-year-old female with a history of COPD on home oxygen came with complaints of bloody diarrhea as per the patient started having diarrhea almost six days before initially was diarrhea and watery and then later became stools became black in color hematochezia. Hemoglobin is stable patient also has some epigastric pain. Patient had GI workup in the past he had some colonoscopy in the in April apparently showed some polyps no history of any colitis or other pathology. In the endoscopy CT scan showed some possible pneumonia and reactive airway disease in the right low and hiatal hernia and mild hepatomegaly. No bowel obstruction or colitis seen Past Medical History COPD right upper lobe nodule hemorrhoids Past Surgical History Hip surgery Family History: FH: pneumonia G8 FATHER, Family History Noncontributory Social History History of heavy smoking in the past Allergies: Coded Allergies: Amoxicillin (Verified Allergy, Severe, Anaphylaxis, 03/12/24) Iodine (Verified Allergy, Severe, Anaphylaxis, 03/12/24) Home Meds Reported Medications Sertraline Hcl (Zoloft) Unknown Strength Tab, 100 MG PO DAILY, TAB 02/05/23 Ondansetron Odt 4MG Tab (ZOFRAN PO) 4 Mg Tb, 4 MG PO, TAB ODT TAB-DISSOLVE IN MOUTH, THEN SWALLOW 02/05/23 Omeprazole (Gnp Omeprazole) 20 Mg Tab, 1 TAB PO DAILY 07/11/22 Alprazolam (Xanax) 1 Mg Tab, 1 TAB PO BID 07/11/22 Albuterol Sulfate (VENTOLIN MDI) 90 Mcg Ih, 90 MCG IN PRN for SHORTNESS OF BREATH, INH 09/27/21 Yrsfnolbrhk-Brqlamrqjrvz-Hbbiz (Trelegy Ellipta 200-62.5-25 Mcg/INH) 1 Aer Aer, 1 AER IN DAILY for COPD, AER 07/08/21 Current Medications Current Medications Medications (Trade) Dose Ordered Sig/Kulwinder Route PRN Reason Start Time Stop Time Status Last Admin Sodium Chloride (Saline Lock Ns) 10 ml Q8HR IV 07/11/24 22:00 Nitroglycerin (Ntrostat Sublingual) 0.4 mg Q5MINP PRN SL FOR CHEST PAIN 07/11/24 16:00 Morphine Sulfate 2 mg Q30M PRN IV FOR CHEST PAIN 07/11/24 16:00 Pantoprazole Sodium (Protonix) 40 mg BID IV 07/11/24 22:00 Sodium Chloride 1,000 ml @ 100 mls/hr Q10H IV 07/11/24 16:30 Enoxaparin Sodium (Lovenox) 40 mg DAILY SC 07/12/24 10:00 07/11/24 17:09 DC Ipratropium [place] (Atrovent Medneb) 0.5 mg Q6HPRN PRN NEB SHORTNESS OF BREATH 07/11/24 16:30 07/11/24 18:25 DC Albuterol (Ventolin Medneb) 2.5 mg Q6HPRN PRN NEB SHORTNESS OF BREATH 07/11/24 16:30 07/11/24 18:25 DC Albuterol (Ventolin Medneb) 2.5 mg Q6H NEB 07/12/24 00:00 Ipratropium [place] (Atrovent Medneb) 0.5 mg Q6H NEB 07/11/24 18:30 07/11/24 19:05 DC Budesonide (Pulmicort) 0.25 mg BID NEB 07/11/24 22:00 Ipratropium [place] (Atrovent Medneb) 0.5 mg Q6H NEB 07/12/24 00:00 Review of Systems Unremarkable Vital Signs Vital Signs Date Time Temp Pulse Resp B/P (MAP) Pulse Ox O2 Delivery O2 Flow Rate FiO2 07/11/24 16:44 97.4 82 18 131/68 96 2.0 97.4 07/11/24 14:50 Nasal Cannula* 28 Physical Exam Originally built and nourished female in no acute distress vital signs stable Lungs are clear Cardiovascular unremarkable Abdomen is soft no tenderness no rigidity no guarding no masses bowel sounds normal Extremities no edema Neuro grossly intact Labs/Diagnostic Data Labs Test 07/11/24 17:52 07/11/24 14:57 07/11/24 14:24 07/11/24 14:00 Range/Units Hemoglobin 13.4 12.2-16.2 g/dL Hematocrit 40.3 36.0-46.0 % Troponin I High Sensitivity < 3 L </=34 ng/L Urine Color Light-yellow Yellow Urine Clarity Turbid H Clear Urine pH 5.5 5.0-9.0 Urine Specific [place] 1.022 1.001-1.035 Urine Protein Negative Negative Urine Ketones Negative Negative Urine Blood Negative Negative /uL Urine Nitrite Negative Negative Urine Bilirubin Negative Negative Urine Urobilinogen Normal Negative mg/dL Urine Leukocyte Esterase 2+ Negative /uL Urine RBC 1 0 - 4 /hpf Urine Microscopic WBC 1 0-5 /HPF Urine Squamous Epithelial Cells Few <5 /hpf Urine Bacteria None seen None Seen /hpf Urine Mucus Few None Seen Urine Glucose Normal Normal mg/dL White Blood Count 6.7 4.4-10.8 10^3/uL Red Blood Count 4.61 4.0-5.20 10^6/uL Mean Corpuscular Volume 90.9 80.0-100.0 fL Mean Corpuscular Hemoglobin 30.0 28.0-32.0 pg Mean Corpuscular Hemoglobin Concent 33.0 32.0-36.0 g/dL Red Cell Distribution Width 15.2 H 11.8-14.3 % Platelet Count 302 140-450 10^3/uL Mean Platelet Volume 8.6 6.9-10.8 fL Neutrophils (%) (Auto) 70.9 37.0-80.0 % Lymphocytes (%) (Auto) 19.7 10.0-50.0 % Monocytes (%) (Auto) 8.6 0.0-12.0 % Eosinophils (%) (Auto) 0.4 0.0-7.0 % Basophils (%) (Auto) 0.4 0.0-2.0 % Neutrophils # (Auto) 4.7 1.6-8.6 10 ^3/uL Lymphocytes # (Auto) 1.3 0.4-5.4 10 ^3/uL Monocytes # (Auto) 0.6 0-1.3 10 ^3/uL Eosinophils # (Auto) 0 0-0.8 10 ^3/uL Basophils # (Auto) 0 0-0.2 10 ^3/uL Nucleated Red Blood Cells 0.1 % Sodium Level 141 136-145 mmol/L Potassium Level 4.2 3.5-5.1 mmol/L Chloride Level 107 98-107 mmol/L Carbon Dioxide Level 23 20-31 mmol/L Anion Gap 11 5-15 Blood Urea Nitrogen 11 9-23 mg/dL Creatinine 0.74 0.550-1.02 mg/dL Glomerular Filtration Rate Calc 85 >90 mL/min BUN/Creatinine Ratio 14.9 10.0-20.0 Serum Glucose 97 74-106 mg/dL Lactic Acid Level 1.1 0.4-2.0 mmol/L Calcium Level 9.6 8.7-10.4 mg/dL Total Bilirubin 0.5 0.2-1.0 mg/dL Aspartate Amino Transferase (AST) 11 L 13-40 U/L Alanine Aminotransferase (ALT) 17 7-40 U/L Alkaline Phosphatase 129 H 46-116 U/L B-Type Natriuretic Peptide 22.44 0-100 pg/mL Total Protein 6.5 5.7-8.2 g/dL Albumin 4.6 3.2-4.8 g/dL Lipase 39 12-53 U/L Assessment 71-year-old with a history of COPD admitted with complaints of diarrhea had some little blood in the also in the stools hemoglobin is stable patient had a CAT scan which showed no gross abnormalities patient had EGD colon recently by Dr. Solis which were unremarkable except for some polyp. No evidence any gross colitis. Patient denies fever chills any travel. Labs are essentially unremarkable clinical impression is possible diarrhea with infectious diarrhea Plan/Recommendation suggestions are recommend stool studies and we will recommend follow-up as an outpatient. And follow the hemoglobin closely hemoglobin is stable at this time. If there is further bleeding may need further evaluations necessary for the time being we will recommend symptomatic treatment and follow in the clinic as an outpatient in the GI. Thank you Dr. Colon for asking me to take part in the care of this pleasant lady with warm regards Dr. Barajas Plan discussed with: Patient REDDY BARAJAS MD Jul 11, 2024 19:25
--- NOTE | 2024-07-11 20:02 | DVHDSRES ---
Discharge Summary Date of Admission Resident Creating Document: ADRIA MURILLO RESIDENT Jul 11, 2024 at 15:48 Date of Discharge: Jul 11, 2024 Admitting Diagnosis Intractable nausea and vomiting and loose stool Labs/Diagnostic Data: Laboratory Results Test 07/11/24 17:52 07/11/24 14:57 07/11/24 14:24 07/11/24 14:00 Hemoglobin 13.4 g/dL (12.2-16.2) Hematocrit 40.3 % (36.0-46.0) Troponin I High Sensitivity < 3 ng/L (</=34) Urine Color Light-yellow (Yellow) Urine Clarity Turbid (Clear) Urine pH 5.5 (5.0-9.0) Urine Specific [place] 1.022 (1.001-1.035) Urine Protein Negative (Negative) Urine Ketones Negative (Negative) Urine Blood Negative /uL (Negative) Urine Nitrite Negative (Negative) Urine Bilirubin Negative (Negative) Urine Urobilinogen Normal mg/dL (Negative) Urine Leukocyte Esterase 2+ /uL (Negative) Urine RBC 1 /hpf (0 - 4) Urine Microscopic WBC 1 /HPF (0-5) Urine Squamous Epithelial Cells Few /hpf (<5) Urine Bacteria None seen /hpf (None Seen) Urine Mucus Few (None Seen) Urine Glucose Normal mg/dL (Normal) White Blood Count 6.7 10^3/uL (4.4-10.8) Red Blood Count 4.61 10^6/uL (4.0-5.20) Mean Corpuscular Volume 90.9 fL (80.0-100.0) Mean Corpuscular Hemoglobin 30.0 pg (28.0-32.0) Mean Corpuscular Hemoglobin Concent 33.0 g/dL (32.0-36.0) Red Cell Distribution Width 15.2 % (11.8-14.3) Platelet Count 302 10^3/uL (140-450) Mean Platelet Volume 8.6 fL (6.9-10.8) Neutrophils (%) (Auto) 70.9 % (37.0-80.0) Lymphocytes (%) (Auto) 19.7 % (10.0-50.0) Monocytes (%) (Auto) 8.6 % (0.0-12.0) Eosinophils (%) (Auto) 0.4 % (0.0-7.0) Basophils (%) (Auto) 0.4 % (0.0-2.0) Neutrophils # (Auto) 4.7 10 ^3/uL (1.6-8.6) Lymphocytes # (Auto) 1.3 10 ^3/uL (0.4-5.4) Monocytes # (Auto) 0.6 10 ^3/uL (0-1.3) Eosinophils # (Auto) 0 10 ^3/uL (0-0.8) Basophils # (Auto) 0 10 ^3/uL (0-0.2) Nucleated Red Blood Cells 0.1 % Sodium Level 141 mmol/L (136-145) Potassium Level 4.2 mmol/L (3.5-5.1) Chloride Level 107 mmol/L (98-107) Carbon Dioxide Level 23 mmol/L (20-31) Anion Gap 11 (5-15) Blood Urea Nitrogen 11 mg/dL (9-23) Creatinine 0.74 mg/dL (0.550-1.02) Glomerular Filtration Rate Calc 85 mL/min (>90) BUN/Creatinine Ratio 14.9 (10.0-20.0) Serum Glucose 97 mg/dL (74-106) Lactic Acid Level 1.1 mmol/L (0.4-2.0) Calcium Level 9.6 mg/dL (8.7-10.4) Total Bilirubin 0.5 mg/dL (0.2-1.0) Aspartate Amino Transferase (AST) 11 U/L (13-40) Alanine Aminotransferase (ALT) 17 U/L (7-40) Alkaline Phosphatase 129 U/L (46-116) B-Type Natriuretic Peptide 22.44 pg/mL (0-100) Total Protein 6.5 g/dL (5.7-8.2) Albumin 4.6 g/dL (3.2-4.8) Lipase 39 U/L (12-53) Other Laboratory Tests 07/11/24 17:52 07/11/24 14:00 Brief Hx & Hospital Course: Patient is 71 years old female with past medical of COPD, on home oxygen 2-3 L/min, anxiety, right upper lobe nodule, hemorrhoids, history of pneumonia came with a complaint of bloody diarrhea. As per patient she started having diarrhea on Sunday almost 6 days before, initially diarrhea was 4 times a day, it was watery but since Sunday 3 days stool is black in color, with some bloody speckles. Patient also endorsed nausea and vomiting started Sunday, watery, no blood. On further discussion also patient endorsed abdominal pain epigastric, 7/10, radiating to the left lower abdomen, Joshua, gradual in nature, associated with eating. Patient did not any fever, any chest pain no or worsening short of breath or palpitation. On initial lab workup hemoglobin stable with 13.8, no leukocytosis, no electrolyte imbalance, lipase within normal limit. Other initial lab work with a normal limit. CT abdomen revealed- 1. Ground-glass opacities in the lower lobes may be due to scarring, atelectasis, or mild pneumonia. There is evidence of Reactive airways disease in the right lower lobe. Small sliding hiatal hernia. Hepatomegaly. Mild appendiceal dilatation without other evidence of acute appendicitis.Postoperative changes of bilateral total hip arthroplasties. Multiple chronic appearing spinal fractures as above. No bowel obstruction. CXR- Stable right upper lobe scarring and new right basilar scarring versus atelectasis. Emphysema. Patient was seen by publicity director Dr. Barajas. Patient's repeat H and H stable. Hemodynamically stable. No acute diarrhea. Patient recently had colonoscopy three-month before with no significant finding except hemorrhoids. Patient was advised to follow up with the primary care physician in 1 week with the report of fecal occult blood test, CBC showed and also to follow up with the publicity director Dr. Solis in 1-2 weeks. Patient was hemodynamically stable on discharge. Syndrome spent in clinical evaluation, chart review, discharge planning >30 minutes Operations or Procedures [place] [address] Ph: [phone] DIAGNOSTIC IMAGING Diagnostic Imaging Report : [id number] Signed PATIENT: MARC SALAS ACCT: [id number] UNIT: [id number] : 1950 LOC: ER ROOM / BED: / AGE / SEX: 74 / F ADM STATUS: REG ER SERVICE [id number] ORDERING PHYSICIAN: BONNIE BARRON MD PROCEDURE(s): CXRP - CHEST PORTABLE REASON: sob ORDER NUMBER(s): [id number], ACCESSION NUMBER(s): [id number] EXAM: XY CHEST PORTABLE HISTORY: sob COMPARISON: XY CHEST PORTABLE on DOS: 09/05/23, XY CHEST PORTABLE on DOS: 07/04/23, XY CHEST PORTABLE on DOS: 07/04/23, XY CHEST PORTABLE on DOS: 07/08/22, CHEST PORTABLE on DOS: 02/23/22, CT scan of the chest dated 07/04/2023. TECHNIQUE: PA upright view of the chest was performed. FINDINGS: Right upper lobe scarring is stable. There is new scarring or atelectasis in the right lower lobe. Emphysematous changes are better characterized on prior CT scan. No pneumothorax or pulmonary edema. The heart is not enlarged. IMPRESSION: 1. Stable right upper lobe scarring and new right basilar scarring versus atelectasis. 2. Emphysema. ATED BY: SARABJIT JONES MD DICTATED DATE/TIME: 07/11/241447 SIGNED BY: SARABIJT JONES MD SIGNED DATE/TIME: 07/11/241447 CC: [place] [address] Ph: [phone] DIAGNOSTIC IMAGING Diagnostic Imaging Report : [id number] Signed PATIENT: MARC SALAS ACCT: [id number] UNIT: [id number] : 1950 LOC: ER ROOM / BED: / AGE / SEX: 74 / F ADM STATUS: REG ER SERVICE [id number] ORDERING PHYSICIAN: BONNIE BARRON MD PROCEDURE(s): ABPL - CT AB PEL WO CON-NO ORAL OR IV REASON: upper and mid abd pain, n/v/d, black stool ORDER NUMBER(s): [id number], ACCESSION NUMBER(s): [id number] EXAM: CT CT AB PEL WO CON-NO ORAL OR IV HISTORY: upper and mid abd pain, n/v/d, black stool COMPARISON: CT CHST AB PEL WO CON-NO IV/ORAL on DOS: 03/30/23, CT ABD PELVIS WO CONTRAST on DOS: 09/12/21, ECIDC on DOS: 07/13/21 TECHNIQUE: Helical CT images of the abdomen and pelvis were performed without IV contrast. Sagittal and coronal reformatted images were obtained. This CT exam was performed using one or more of the following dose reduction techniques: Automated exposure control, adjustment of the mA and/or kv according to patient size, or the use of iterative reconstruction techniques. Radiation Dose: Abdomen/Pelvis: CTDIvol 9.4 mGy, DLP 431.96 mGy*cm. FINDINGS: CT abdomen: There are ground-glass opacities in the lower lobes, right greater than left, slightly increased versus prior CT scan of the chest performed 8 days earlier. There is peribronchial thickening in the right lower lobe. The heart is borderline enlarged. There is a small sliding hiatal hernia. The liver is enlarged up to 20 cm longitudinal. The right kidney is malrotated, with collecting system duplication The noncontrast spleen, gallbladder, pancreas, left kidney, and bilateral adrenal glands are unremarkable. No abdominal aortic aneurysm. CT pelvis: No abnormal bowel dilatation, free air, or free fluid. The appendix is dilated up to 7.2 mm, contains dense intraluminal substance, without single wall thickening or periappendiceal fat stranding. The lower pelvis is difficult to evaluate secondary to extensive beam hardening artifact from bilateral total hip arthroplasties. There are chronic appearing spinal fractures including inferior endplate of T11, superior endplate of T12, inferior endplate of L1, inferior endplate of L2, inferior endplate of L3. IMPRESSION: 1. Ground-glass opacities in the lower lobes may be due to scarring, atelectasis, or mild pneumonia. There is evidence of Reactive airways disease in the right lower lobe. 2. Small sliding hiatal hernia. 3. Hepatomegaly. 4. Mild appendiceal dilatation without other evidence of acute appendicitis. 5. Postoperative changes of bilateral total hip arthroplasties. 6. Multiple chronic appearing spinal fractures as above. 7. No evidence of bowel obstruction or other acute process in the abdomen or pelvis. ATED BY: SARABJIT JONES MD DICTATED DATE/TIME: 07/11/241445 SIGNED BY: SARABJIT JONES MD SIGNED DATE/TIME: 07/11/24 144 CC: Condition at Discharge: Stable Final Diagnosis/Problems List # Acute GI bleeding-resolved Acute diarrhea with the intractable nausea and vomiting likely due to acute gastroenteritis likely viral-resolved COPD, no exacerbation History of pulmonary nodule History of hemorrhoids Emphysema Likely atelectasis, no pneumonia Ground-glass opacities in the lower lobes may be due to scarring, atelectasis, Small sliding hiatal hernia. Hepatomegaly. Mild appendiceal dilatation without other evidence of acute appendicitis .Postoperative changes of bilateral total hip arthroplasties. Multiple chronic appearing spinal fractures as above. Discharge Disposition: Home Discharge Instruct/Medications Follow Up/Referral: Follow up with the primary care physician with a report of FOBT-fecal occult blood test, CBC Medications: Pantoprazole 40 mg daily Please resume home medications Discharge Statement: "Patient was advised to return to the ER or call 911 if any headaches, dizziness, shortness of breath, chest pain, abdominal pain, bleeding, fevers, or worsening of medical condition. Patient was counseled about treatment plan, medications, possible side effects, patientverbalized understanding. All questions were answered to the best of my ability. This discharge took greater then 30 minutes in planning, reviewing documentation, counseling the patient, and discussing with other team members." ASSESSMENT ASSESSMENT Assessment Date of Service: Jul 11, 2024 Billing Provider: JODY SHARP MD Common Visit Codes: 16792-HUK/OBS DISCH DAY <30MIN ADRIA MURILLO RESIDENT Jul 11, 2024 20:01 JODY SHARP MD Jul 14, 2024 10:47
[2024-07-11] MEDS ORDERED: PANT40T PO (20:04)
[2024-07-11 20:08] VITALS: BP 152/81; PULSE 87; RESP 16; TEMP 98.4; O2SAT 92
[2024-07-11] MEDS: LACTULOSE 20Gm/30ML SOLN PO ONE ×2 (20:13→20:20)
[2024-07-11] MEDS: SODIUM CHLORIDE 0.9% 1,000 ML IV SCH (20:21)
[2024-07-11] MEDS ORDERED: BUDESONIDE (INHALATION) 0.5 MG/2 ML NEB NEB SCH (22:00)
[2024-07-11] MEDS: SODIUM CHLOR 0.9% PF (SALINE LOCK) 10ML VIAL/SYR IV SCH (22:16)
[2024-07-11] MEDS: PANTOPRAZOLE 40 MG/10 ML VIAL INJ IV SCH (22:20)
[2024-07-12] MEDS ORDERED: ALBUTEROL SULF 2.5 MG/0.5ML(0.5%) NEB SOLN NEB SCH
[2024-07-12] MEDS ORDERED: IPRATROPIUM BROM 0.5 MG/2.5ML INH SOL NEB SCH
[2024-07-12] MEDS ORDERED: ENOXAPARIN SOD 40 MG/0.4 ML SYRINGE SC SCH (10:00)
== END 2024-07-11 22:59 | disposition home or self-care (01) | DRG 378 ==
LOC: ER 13:00 → OVERFLOW 15:48
PROVIDERS: ADMIT Internal Medicine; ATTEND Internal Medicine
DX: K92.2 Gastrointestinal hemorrhage, unspecified (principal); J98.11 Atelectasis; A08.4 Viral intestinal infection, unspecified; K21.9 Gastro-esophageal reflux disease without esophagitis; F41.9 Anxiety disorder, unspecified; J43.9 Emphysema, unspecified; K44.9 Diaphragmatic hernia without obstruction or gangrene; Z88.1 Allergy status to other antibiotic agents; Z79.899 Other long term (current) drug therapy; Z99.81 Dependence on supplemental oxygen; Z87.891 Personal history of nicotine dependence; J44.9 Chronic obstructive pulmonary disease, unspecified
CPT/HCPCS: 36415; 71045; 74176; 80053; 81001; 83605; 83690; 83880; 84484; 85014; 85018; 85025; 86850; 86900; 86901; 87040; 87086; 93005; 94640; 96361; 96374; 96375; G0378; J2405; J2470

== ENCOUNTER 2025-02-10 15:36 | Inpatient (IN) | payer OTHER ==
[~2025-02-10] VITALS: Ht 170.2 cm; Wt 67.3 kg
[~2025-02-10 15:36] MED LIST changes: +PANT40T PO
--- NOTE | 2025-02-10 16:12 | ECG ---
[facility] Test Date: 2025-02-10 Test Time: 15:44:04 Pat Name: MARC SALAS Department: ED Room: Gender: F Software Test Specialist: : 1950 Requested By: CORBIN LINDA Order Number: [id number] Reading MD: Joseph Figueroa Measurements Intervals [place] Rate: 84 P: 68 [place]: 115 QRS: 73 QRSD: 137 T: 1 QT: 394 QTc: 466 Interpretive Statements Sinus rhythm Borderline short [place] interval Right bundle branch block Artifact in lead(s) I,II,III,aVL,V1,V2,V3,V4,V5,V6 Electronically Signed On 02-10-2025 18:02:27 PST by Joseph Figueroa Please click the below link to view image of tracing.
--- NOTE | 2025-02-10 16:17 | ED.PDOC ---
SOB-HPI Chief Complaint: Shortness of Breath Comments Patient is a 74-year-old female with past medical history of COPD, chronic respiratory failure on home O2 2 L, brought in by ambulance due to shortness of breath. According to the patient, on Tuesdays she went to see her grandkids and since then she has been feeling poorly, starting Sunday she started experiencing shortness of breaths, congestion and wheezing. Shortness of breath associated with a productive cough which produces greenish tinged sputum, patient tried albuterol inhaler as well as breathing treatments at home which did not relieve her symptoms of shortness of breath, she also increased home O2 from 2 L to 3 L however did not at any relief, which is what prompted her to call EMS. Patient denies having any prior intubations. Patient also notes starting today she started feeling chest pressure which she describes as "an elephant sitting on my chest" , rates it as 8/10 in intensity, without any exacerbating or relieving factors. On review of systems patient is complaining of chills, shortness of breath, cough, rhinorrhea and urinary hesitancy. Patient was given breathing treatments, IV methylprednisolone, however, at re- evaluation patient had similar symptoms including shortness of breaths, congestion and chest pressure. Serial troponins were negative. Time Seen by MD: 15:45 Primary Care Provider: NONE Mode of Arrival: EMS Past Medical History PAST MEDICAL HISTORY: Anxiety, COPD, Depression, GERD, UTI'S Past Medical History (Contd): COPD, chronic respiratory failure on home O2 2 L, Surgical History (Cont'd) Bilateral hip replacement surgery PRINT FINISHER History: No Pertinent PRINT FINISHER History Family History Family History: Reviewed,noncontributory to illness, Unknown Social History Smoker: Quit Less Than 1 Year, Cigarettes Alcohol: Denies ETOH Use Drugs: Denies Drug Use Lives In: Home Constitutional: reports: chills; denies: diaphoresis, fatigue, fever, malaise, sweats, weakness, others EENTM: denies: blurred vision, double vision, ear bleeding, ear discharge, ear drainage, ear pain, ear ringing, eye pain, eye redness, hearing loss, mouth pain, mouth swelling, nasal discharge, nose bleeding, nose congestion, nose pain, photophobia, tearing, throat pain, throat swelling, voice changes, others Respiratory: reports: cough, shortness of breath, wheezing; denies: hemoptysis, orthopnea, SOB at rest, SOB with excertion, stridor, others Cardiovascular: denies: chest pain, dizzy spells, diaphoresis, Dyspnea on exertion, edema, irregular heart beat, left arm pain, lightheadedness, palpitations, PND, syncope, others Gastrointestinal: reports: nausea; denies: abdomen distended, abdominal pain, blood streaked bowels, constipated, diarrhea, dysphagia, difficulty swallowing, hematemesis, melena, poor appetite, poor fluid intake, rectal bleeding, rectal pain, vomiting, others Genitourinary: denies: abnormal vagina bleeding, burning, dyspareunia, dysuria, flank pain, frequency, hematuria, incontinence, pain, , vagina discharge, urgency, others Neurological: denies: dizziness, fainting, headache, left sided numbness, left sided weakness, numbness, paresthesia, pre-existing deficit, right sided numbness, right sided weakness, seizure, speech problems, tingling, tremors, weakness, others Integumetry: denies: bruises, change in color, change in hair/nails, dryness, laceration, lesions, lumps, rash, wounds, others Allergic/Immunocompromised: denies: Difficulty Healing, Frequent Infections, Hives, Itching, others Hematologic/Lymphatic: denies: anemia, blood clots, easy bleeding, easy bruising, swollen glands, others Endocrine: denies: excessive hunger, excessive sweating, excessive thirst, excessive urination, flushing, intolerance to cold, intolerance to heat, unexp lained weight gain, unexplained weight loss, others Psychiatric: denies: anxiety, bipolar disorder, depression, hopeless, panic disorder, schizophrenia, sleepless, suicidal, others Physical Exam General Appearance: Mild Distress, None, Normal HEENT: Normal ENT Inspection, PERRL/EOMI Neck: Full Range of Motion, Non-Tender, Normal Respiratory: Expiration, Wheezing Cardiovascular: No Murmur, Tachycardia Breast Exam: Deferred Gastrointestinal: Diffuse, Tenderness Genitalia: Deferred Pelvic: Deferred Rectal: Rectal Exam not done Extremities: No calf tenderness, Normal inspection, Non-tender, No pedal edema Neurologic: Alert, No Motor Deficits, Normal Affect, No Sensory Deficits Cerebellar Function: Normal Reflexes: NOT DONE Skin: Dry, Normal Color Peripheral Pulses: 2+ dorsalis pedis (R), 2+ dorsalis pedis (L) Lymphatic: NOT DONE Was a procedure done? Was a procedure done?: No Differential Dx Differential Diagnosis: Bronchitis, COPD, Myocardial infarction, Pneumonia, URI X-Ray, Labs, Meds, VS Vital Signs Date Time Temp Pulse Resp B/P (MAP) Pulse Ox O2 Delivery O2 Flow Rate FiO2 02/10/25 16:37 22 96 Oxymizer 3 N/A 02/10/25 15:49 97.1 86 14 125/72 94 97.1 02/10/25 15:44 84 Lab Test 02/10/25 17:19 02/10/25 16:20 Range/Units Troponin I High Sensitivity 3 L 3 L </=34 ng/L White Blood Count 12.1 H 4.4-10.8 10^3/uL Red Blood Count 4.95 4.0-5.20 10^6/uL Hemoglobin 14.4 12.2-16.2 g/dL Hematocrit 43.3 36.0-46.0 % Mean Corpuscular Volume 87.4 80.0-100.0 fL Mean Corpuscular Hemoglobin 29.0 28.0-32.0 pg Mean Corpuscular Hemoglobin Concent 33.2 32.0-36.0 g/dL Red Cell Distribution Width 14.6 H 11.8-14.3 % Platelet Count 325 140-450 10^3/uL Mean Platelet Volume 8.6 6.9-10.8 fL Neutrophils (%) (Auto) 87.3 H 37.0-80.0 % Lymphocytes (%) (Auto) 10.0 10.0-50.0 % Monocytes (%) (Auto) 2.5 0.0-12.0 % Eosinophils (%) (Auto) 0.0 0.0-7.0 % Basophils (%) (Auto) 0.2 0.0-2.0 % Neutrophils # (Auto) 10.6 H 1.6-8.6 10 ^3/uL Lymphocytes # (Auto) 1.2 0.4-5.4 10 ^3/uL Monocytes # (Auto) 0.3 0-1.3 10 ^3/uL Eosinophils # (Auto) 0 0-0.8 10 ^3/uL Basophils # (Auto) 0 0-0.2 10 ^3/uL Nucleated Red Blood Cells 0.0 % Sodium Level 142 136-145 mmol/L Potassium Level 3.6 3.5-5.1 mmol/L Chloride Level 106 98-107 mmol/L Carbon Dioxide Level 21 20-31 mmol/L Anion Gap 15 5-15 Blood Urea Nitrogen 16 9-23 mg/dL Creatinine 0.84 0.550-1.02 mg/dL Glomerular Filtration Rate Calc 73 >90 mL/min BUN/Creatinine Ratio 19.0 10.0-20.0 Serum Glucose 107 H 74-106 mg/dL Calcium Level 10.0 8.7-10.4 mg/dL Current Medications Medications (Trade) Dose Ordered Sig/Kulwinder Route Start Time Stop Time Status Last Admin Albuterol (Ventolin Medneb) 1.25 mg ONCE ONCE NEB 02/10/25 16:15 02/10/25 16:30 DC 02/10/25 16:34 Ipratropium [place] (Atrovent Medneb) 0.5 mg ONCE ONCE NEB 02/10/25 16:15 02/10/25 16:30 DC 02/10/25 16:34 Methylprednisolone Sodium Succinate (Solu Medrol) 125 mg ONCE ONCE IV 02/10/25 16:15 02/10/25 16:30 DC 02/10/25 16:53 Time of 1ST Reevaluation: 16:40 Reevaluation 1ST: Unchanged Time of 2ND Reevaluation: 17:08 Reevaluation 2ND: Unchanged Patient Education/Counseling: Diagnosis, Treatment, Prognosis, Need For Follow Up Family Education/Counseling: No Family Present SEPSIS Sepsis Screen Date sepsis recognized/suspect: Feb 10, 2025 Time Sepsis recognized/suspect: 1539 Recent Procedure: No On Antibiotic Therapy: No Respiratory Rate >20: No Heart Rate >90: No Temp<36 C (96.8 F) or >38.3 C: No SBP <90 or MAP <65 mmHG: No New Acute Mental Status Change: No Is the patient on CPAP, BIPAP,: No Physician Orders Electrocardigram (02/10/25 16:09) Troponin-I Hs (02/10/25 19:09) Electrocardigram (02/10/25 17:09) Chest Portable (02/10/25 16:09) Vital Signs Date Time Temp Pulse Resp B/P (MAP) Pulse Ox O2 Delivery O2 Flow Rate FiO2 02/10/25 16:37 22 96 Oxymizer 3 N/A 02/10/25 15:49 97.1 86 14 125/72 94 97.1 02/10/25 15:44 84 Laboratory Tests Test 02/10/25 16:20 White Blood Count 12.1 10^3/uL (4.4-10.8) H Medications Medications Dose Ordered Sig/Kul[place]inder Route Start Time Stop Time Status Last Admin Dose Admin Albuterol 1.25 mg ONCE ONCE NEB 02/10/25 16:15 02/10/25 16:30 DC 02/10/25 16:34 Ipratropium [place] 0.5 mg ONCE ONCE NEB 02/10/25 16:15 02/10/25 16:30 DC 02/10/25 16:34 Methylprednisolone Sodium Succinate 125 mg ONCE ONCE IV 02/10/25 16:15 02/10/25 16:30 DC 02/10/25 16:53 Departure 1 Departure Time of Disposition: 19:00 Impression: Primary Impression: COPD exacerbation Additional Impressions: Pneumonia Acute respiratory failure Disposition: ADMITTED INPATIENT Condition: Guarded Critical Care Note Critical Care Time?: No Stability Stability form required: No Heart Score Heart Score: Heart Score Response (Comments) Value History Moderate Suspicious 1 EKG Normal 0 Age >65 2 Risk Factors 1 or 2 risk factors 1 Troponin Normal limit 0 Total 4 CORBIN LINDA RESIDENT Feb 10, 2025 16:17
[2025-02-10] MEDS: IPRATROPIUM BROM 0.5 MG/2.5ML INH SOL ONE (16:33)
[2025-02-10] MEDS: ALBUTEROL SULF 2.5 MG/0.5ML(0.5%) NEB SOLN ONE (16:33)
[2025-02-10] MEDS: IPRATROPIUM BROM 0.5 MG/2.5ML INH SOL NEB ONE (16:34)
[2025-02-10] MEDS: ALBUTEROL SULF 2.5 MG/0.5ML(0.5%) NEB SOLN NEB ONE (16:34)
[2025-02-10 16:36] LABS: Hematocrit 43.3 % (36.0-46.0); Hemoglobin 14.4 g/dL (12.2-16.2); Mean Corpuscular Hemoglobin 29.0 pg (28.0-32.0); Mean Corpuscular Volume 87.4 fL (80.0-100.0); Nucleated Red Blood Cells % 0.0 %
--- NOTE | 2025-02-10 16:42 | DVH ---
CHEST RADIOGRAPH Indication: sob Technique: Single frontal view of the chest was obtained COMPARISON: XY CHEST PORTABLE on DOS: 07/11/24, CT CHEST WITHOUT CONTRAST on DOS: 06/23/24, XY CHEST PORTABLE on DOS: 09/05/23, CT CHEST WITH CONTRAST on DOS: 09/05/23, XY CHEST PORTABLE on DOS: 07/04/23 FINDINGS: Stable right upper lobe scarring. Otherwise, lungs and pleural spaces are clear. Cardiac silhouette and nancy are within normal limits. Bones and soft tissues demonstrate no significant abnormality. IMPRESSION: No acute disease.
[2025-02-10 16:45] LABS: Chloride 106 mmol/L (98-107); Potassium 3.6 mmol/L (3.5-5.1); Sodium 142 mmol/L (136-145)
[2025-02-10 16:46] LABS: Anion Gap 15 (5-15); Carbon Dioxide 21 mmol/L (20-31)
[2025-02-10 16:47] LABS: Calcium 10.0 mg/dL (8.7-10.4)
[2025-02-10 16:51] LABS: BUN/Creatinine Ratio 19.0 (10.0-20.0); Blood Urea Nitrogen 16 mg/dL (9-23)
[2025-02-10 16:52] LABS: Glucose 107 mg/dL (74-106)
[2025-02-10] MEDS: methylPREDNISolone SOD SUCC 125 MG/2 ML VL IV ONE (16:53)
--- NOTE | 2025-02-10 17:48 | ECG ---
[facility] Test Date: 2025-02-10 Test Time: 17:47:47 Pat Name: MARC SALAS Department: ED Room: Gender: F Travelers' Aid Worker: : 1950 Requested By: CORBIN LINDA Order Number: [id number] Reading MD: Joseph Figueroa Measurements Intervals [place] Rate: 88 P: 77 [place]: 123 QRS: 95 QRSD: 126 T: 46 QT: 395 QTc: 478 Interpretive Statements Sinus rhythm RBBB and LPFB Electronically Signed On 02-10-2025 18:03:34 PST by Joseph Figueroa Please click the below link to view image of tracing.
--- NOTE | 2025-02-10 18:49 | ECG ---
[facility] Test Date: 2025-02-10 Test Time: 18:48:19 Pat Name: MARC SALAS Department: ED Room: 0238 Gender: F Fisher Trot Line: RICKEY : 1950 Requested By: CORBIN LINDA Order Number: [id number] Reading MD: Joseph Figueroa Measurements Intervals [place] Rate: 86 P: 78 [place]: 121 QRS: 92 QRSD: 131 T: 38 QT: 388 QTc: 464 Interpretive Statements Sinus rhythm RBBB and LPFB Electronically Signed On 02-11-2025 18:54:33 PST by Joseph Figueroa Please click the below link to view image of tracing.
[2025-02-10 19:15] VITALS: PULSE 84; RESP 14; O2SAT 95
[2025-02-10] MEDS ORDERED: ACETAMINOPHEN 325 MG TAB PO PRN (19:45)
[2025-02-10] MEDS: AZITHROMYCIN 500MG/250ML 250 ML IV ONE (20:15)
[2025-02-10 20:34] VITALS: BP 138/49; PULSE 84; RESP 18; O2SAT 95
[2025-02-10] MEDS: MONTELUKAST SODIUM 10 MG TAB PO SCH (22:33)
--- NOTE | 2025-02-10 22:58 | DVHHP2 ---
History of Present Illness Reason for Visit: Shortness for breath History of Present Illness 74-year-old female presents for evaluation of shortness for breath. Patient reports a one-week history of worsening shortness for breath with associated productive cough with green phlegm as well as congestion and wheezing. Denies fever. Reports occasional chills. No chest pain. Past Medical History COPD, depression, currently, anxiety Past Surgical History Bilateral hip replacement Family History Noncontributory Smoke: Quit ALCOHOL: none Drugs: None Lives: with Family Review of Systems Review of Systems Review of systems are currently negative otherwise addressed in HPI. Allergies: Coded Allergies: Amoxicillin (Verified Allergy, Severe, Anaphylaxis, 03/12/24) Iodine (Verified Allergy, Severe, Anaphylaxis, 03/12/24) Medications Current Medications Medications Dose Ordered Sig/Kulwinder Route Start Time Stop Time Status Last Admin Dose Admin Albuterol 2.5 mg Q6HPRN PRN NEB 02/10/25 19:45 Ipratropium [place] 0.5 mg Q6HPRN PRN NEB 02/10/25 19:45 Methylprednisolone Sodium Succinate 40 mg DAILY IV 02/11/25 10:00 Montelukast Sodium 10 mg HS PO 02/10/25 22:00 02/10/25 22:33 10 MG Pantoprazole Sodium 40 mg DAILY@0600 PO 02/11/25 06:00 Azithromycin 250 ml @ 125 mls/hr DAILY@2100 IV 02/11/25 21:00 Acetaminophen/ Hydrocodone Bitart 1 tab Q6HP PRN PO 02/10/25 19:45 Ondansetron HCl 4 mg Q4HP PRN IV 02/10/25 19:45 Enoxaparin Sodium 40 mg DAILY SC 02/11/25 10:00 Acetaminophen 650 mg Q6HP PRN PO 02/10/25 19:45 Exam Vital Signs Vital Signs Date Time Temp Pulse Resp B/P (MAP) Pulse Ox O2 Delivery O2 Flow Rate FiO2 02/10/25 20:34 84 18 138/49 95 4.0 02/10/25 19:15 Nasal Cannula* 36 02/10/25 19:15 98.5 98.5 Exam Gen: Full 74-year-old female in mild distress Skin: Warm, dry, normal color and texture, no rash. HEENT: Normocephalic atraumatic, mucous membranes moist and pink. Neck: Cervical and supraclavicular nodes normal without enlargement, trachea is midline, thyroid gland is normal without masses. Pulmonary: Clear to auscultation and percussion bilaterally. Cardiac: Regular rate and rhythm. No murmur Abdomen: Soft, nontender, nondistended, bowel sounds present all 4 quadrants, no guarding, no rigidity, no organomegaly. Extremities: No cyanosis, clubbing, no edema Neuro: Cranial nerves II through XII grossly intact, normal affect and speech, no focal motor deficits. Labs/Xrays ORDERING PHYSICIAN: CORBIN LINDA RESIDENT PROCEDURE(s): CXRP - CHEST PORTABLE REASON: sob ORDER NUMBER(s): [id number], ACCESSION NUMBER(s): [id number] CHEST RADIOGRAPH Indication: sob Technique: Single frontal view of the chest was obtained COMPARISON: XY CHEST PORTABLE on DOS: 07/11/24, CT CHEST WITHOUT CONTRAST on DOS: 06/23/24, XY CHEST PORTABLE on DOS: 09/05/23, CT CHEST WITH CONTRAST on DOS: 09/05/23, XY CHEST PORTABLE on DOS: 07/04/23 FINDINGS: Stable right upper lobe scarring. Otherwise, lungs and pleural spaces are clear. Cardiac silhouette and nancy are within normal limits. Bones and soft tissues demonstrate no significant abnormality. IMPRESSION: No acute disease. Labs Test 02/10/25 19:06 02/10/25 16:20 Range/Units D-Dimer, Quantitative < 0.19 0.0-0.49 mg/L FEU Troponin I High Sensitivity 4 </=34 ng/L White Blood Count 12.1 H 4.4-10.8 10^3/uL Red Blood Count 4.95 4.0-5.20 10^6/uL Hemoglobin 14.4 12.2-16.2 g/dL Hematocrit 43.3 36.0-46.0 % Mean Corpuscular Volume 87.4 80.0-100.0 fL Mean Corpuscular Hemoglobin 29.0 28.0-32.0 pg Mean Corpuscular Hemoglobin Concent 33.2 32.0-36.0 g/dL Red Cell Distribution Width 14.6 H 11.8-14.3 % Platelet Count 325 140-450 10^3/uL Mean Platelet Volume 8.6 6.9-10.8 fL Neutrophils (%) (Auto) 87.3 H 37.0-80.0 % Lymphocytes (%) (Auto) 10.0 10.0-50.0 % Monocytes (%) (Auto) 2.5 0.0-12.0 % Eosinophils (%) (Auto) 0.0 0.0-7.0 % Basophils (%) (Auto) 0.2 0.0-2.0 % Neutrophils # (Auto) 10.6 H 1.6-8.6 10 ^3/uL Lymphocytes # (Auto) 1.2 0.4-5.4 10 ^3/uL Monocytes # (Auto) 0.3 0-1.3 10 ^3/uL Eosinophils # (Auto) 0 0-0.8 10 ^3/uL Basophils # (Auto) 0 0-0.2 10 ^3/uL Nucleated Red Blood Cells 0.0 % Sodium Level 142 136-145 mmol/L Potassium Level 3.6 3.5-5.1 mmol/L Chloride Level 106 98-107 mmol/L Carbon Dioxide Level 21 20-31 mmol/L Anion Gap 15 5-15 Blood Urea Nitrogen 16 9-23 mg/dL Creatinine 0.84 0.550-1.02 mg/dL Glomerular Filtration Rate Calc 73 >90 mL/min BUN/Creatinine Ratio 19.0 10.0-20.0 Serum Glucose 107 H 74-106 mg/dL Calcium Level 10.0 8.7-10.4 mg/dL SEPSIS Sepsis Screen Date sepsis recognized/suspect: Feb 10, 2025 Time Sepsis recognized/suspect: 1539 Recent Procedure: No On Antibiotic Therapy: No Respiratory Rate >20: No Heart Rate >90: No Temp<36 C (96.8 F) or >38.3 C: No SBP <90 or MAP <65 mmHG: No New Acute Mental Status Change: No Is the patient on CPAP, BIPAP,: No Physician Orders Electrocardigram (02/10/25 16:09) Electrocardigram (02/10/25 17:09) Chest Portable (02/10/25 16:09) Urinalysis (02/10/25 19:31) Albuterol Medneb (Ventolin Medneb) (02/10/25 19:45) Ipratropium Medneb (Atrovent Medneb) (02/10/25 19:45) Methylprednisolone Sod Succ (Solu Medrol (02/11/25 10:00) Montelukast Tablet (Singulair Tablet) (02/10/25 22:00) Pantoprazole Tablet (Protonix Tablet) (02/11/25 06:00) Azithromycin 500mg/ 250ml (Zithromax 50 (02/11/25 21:00) Basic Metabolic Panel (02/11/25 04:00) Admit (02/10/25 19:31) Hydrocodone-Acet 5/325mg Tab ([place] 5/32 (02/10/25 19:45) Ondansetron Hcl (Zofran) (02/10/25 19:45) Enoxaparin Sodium (Lovenox) (02/11/25 10:00) Complete Blood Count (02/11/25 04:00) Cardiac Diet-2gna,Lofat,Lochol (02/11/25 Breakfast) Condition: Stable (02/10/25 19:31) Acetaminophen Tablet (Tylenol Tablet) (02/10/25 19:45) Bedrest With Bathroom Privileg (02/10/25 19:31) Temazepam (Restoril) (02/10/25 23:00) Vital Signs Date Time Temp Pulse Resp B/P (MAP) Pulse Ox O2 Delivery O2 Flow Rate FiO2 02/10/25 20:34 84 18 138/49 95 4.0 02/10/25 20:00 87 02/10/25 19:15 84 14 95 Nasal Cannula* 4 36 02/10/25 19:15 98.5 84 14 138/49 (78) 95 98.5 02/10/25 19:01 80 02/10/25 16:37 22 96 Oxymizer 3 N/A 02/10/25 15:49 97.1 86 14 125/72 94 97.1 02/10/25 15:44 84 Laboratory Tests Test 02/10/25 16:20 White Blood Count 12.1 10^3/uL (4.4-10.8) H Medications Medications Dose Ordered Sig/Kulwinder Route Start Time Stop Time Status Last Admin Dose Admin Albuterol 1.25 mg ONCE ONCE NEB 02/10/25 16:15 02/10/25 16:30 DC 02/10/25 16:34 1.25 MG Azithromycin 250 ml @ 125 mls/hr ONCE ONCE IV 02/10/25 19:45 02/10/25 21:44 DC 02/10/25 20:15 125 MLS/HR Ipratropium [place] 0.5 mg ONCE ONCE NEB 02/10/25 16:15 02/10/25 16:30 DC 02/10/25 16:34 0.5 MG Methylprednisolone Sodium Succinate 125 mg ONCE ONCE IV 02/10/25 16:15 02/10/25 16:30 DC 02/10/25 16:53 125 MG Montelukast Sodium 10 mg HS PO 02/10/25 22:00 02/10/25 22:33 10 MG Assessment/Plan Assessment/Plan Assessment Acute on chronic respiratory failure COPD exacerbation Acute pneumonitis Leukocytosis Plan Admit the patient to Med surge to the hospitalist Med nebs Azithromycin Resume home medications Continue treatment per orders. Plan discussed with: Patient My Orders Orders - LEANNE TAMCNShubham Procedure Category Date Status Time Urinalysis LAB 02/10/25 Logged 19:31 Albuterol Medneb PHA 02/10/25 In Process (Ventolin Medneb) 19:45 Ipratropium Medneb PHA 02/10/25 In Process (Atrovent Medneb) 19:45 Methylprednisolone PHA 02/11/25 In Process Sod Succ (Solu Medrol 10:00 Montelukast Tablet PHA 02/10/25 In Process (Singulair Tablet) 22:00 Pantoprazole Tablet PHA 02/11/25 In Process (Protonix Tablet) 06:00 Azithromycin 500mg/ PHA 02/11/25 In Process 250ml (Zithromax 50 21:00 Basic Metabolic Panel LAB 02/11/25 Verified 04:00 Admit ADMIT 02/10/25 Transmitted 19:31 Hydrocodone-Acet PHA 02/10/25 In Process 5/325mg Tab ([place] 19:45 Ondansetron Hcl PHA 02/10/25 In Process (Zofran) 19:45 Enoxaparin Sodium PHA 02/11/25 In Process (Lovenox) 10:00 Complete Blood Count LAB 02/11/25 Verified 04:00 Cardiac DIET 02/11/25 Transmitted Diet-2gna,Lofat,Lochol Breakfast Condition: Stable SOPHIA 02/10/25 In Process 19:31 Acetaminophen Tablet [facility] 02/10/25 In Process (Tylenol Tablet) 19:45 Bedrest With Bathroom [facility] 02/10/25 In Process Privileg 19:31 Temazepam (Restoril) [facility] 02/10/25 Logged 23:00 Date of Service: Feb 10, 2025 Billing Provider: LEANNE TAM Common Visit Codes: [id number] INP/OBS CARE (HIGH) LEANNE TAM Feb 10, 2025 22:58
[2025-02-10] MEDS: TEMAZEPAM 15 MG CAP PO ONE (23:01)
[2025-02-11] VITALS (13 sets, daily range): BP systolic 114–138; BP diastolic 59–66; PULSE 70–89; RESP 15–22; TEMP 97.6–98.1; O2SAT 94–99
[2025-02-11] MEDS: IPRATROPIUM BROM 0.5 MG/2.5ML INH SOL NEB PRN (00:07)
[2025-02-11] MEDS: ALBUTEROL SULF 2.5 MG/0.5ML(0.5%) NEB SOLN NEB PRN (00:07)
[2025-02-11] MEDS: ALPRAZolam 0.5 MG TAB PO ONE (00:13)
[2025-02-11] MEDS: PANTOPRAZOLE 40 MG TAB PO SCH (05:36)
[2025-02-11 06:32] LABS: Hematocrit 39.7 % (36.0-46.0); Hemoglobin 13.0 g/dL (12.2-16.2); Mean Corpuscular Hemoglobin 28.9 pg (28.0-32.0); Mean Corpuscular Volume 88.4 fL (80.0-100.0)
[2025-02-11 06:33] LABS: Chloride 106 mmol/L (98-107); Potassium 4.2 mmol/L (3.5-5.1); Sodium 143 mmol/L (136-145)
[2025-02-11 06:34] LABS: Anion Gap 15 (5-15); Calcium 9.7 mg/dL (8.7-10.4); Carbon Dioxide 22 mmol/L (20-31)
[2025-02-11 06:39] LABS: BUN/Creatinine Ratio 22.2 (10.0-20.0); Blood Urea Nitrogen 20 mg/dL (9-23)
[2025-02-11 06:43] LABS: Glucose 107 mg/dL (74-106)
[2025-02-11 07:33] LABS: Total Cells Counted 100.0 (100)
[2025-02-11 08:09] LABS: Urine Protein, UAD Negative (Negative)
[2025-02-11] MEDS: methylPREDNISolone SOD SUCC 40 MG/ML VL IV SCH (10:37)
[2025-02-11] MEDS: ENOXAPARIN SOD 40 MG/0.4 ML SYRINGE SC SCH (10:38)
[2025-02-11] MEDS: ONDANSETRON HCL 4 MG/2 ML VIAL IV PRN (13:44)
--- NOTE | 2025-02-11 16:21 | DVHPN2 ---
Subjective Reports persistent SOB Reviewed: Care Plan, H&P, Labs, Medications, Previous Orders Changes from previous H/P or p: No Changes General: Per HPI Objective Vitals Vital Signs Date Time Temp Pulse Resp B/P (MAP) Pulse Ox O2 Delivery O2 Flow Rate FiO2 02/11/25 13:42 75 18 98 02/11/25 13:32 Nasal Cannula 3.0 02/11/25 13:32 32 02/11/25 07:30 98.3 131/54 (79) 98.3 Intake/Output Intake and Output 02/11/25 07:00 Intake Total 500 ml Balance 500 ml Intake IV Total 500 ml General Appearance: Alert, Oriented X3, Cooperative, mild distress HEENT: Atraumatic, PERRLA Lungs: Other (NC at 4lpm. Inspiratory and expiratory failure) Cardiovascular: Normal S1, Normal S2 Abdomen: Normal bowel sounds, Soft, No tenderness, No hepatospenomegaly Musculoskeletal: Normal sensory function, Normal motor function Skin: Dry, Intact Psych/Mental Status: Mental status NL, Mood NL Medications Current Medications Medications Dose Ordered Sig/Kulwinder Route Start Time Stop Time Status Last Admin Dose Admin Montelukast Sodium 10 mg HS PO 02/10/25 22:00 02/10/25 22:33 10 MG Pantoprazole Sodium 40 mg DAILY@0600 PO 02/11/25 06:00 02/11/25 05:36 40 MG Azithromycin 250 ml @ 125 mls/hr DAILY@2100 IV 02/11/25 21:00 Acetaminophen/ Hydrocodone Bitart 1 tab Q6HP PRN PO 02/10/25 19:45 Ondansetron HCl 4 mg Q4HP PRN IV 02/10/25 19:45 02/11/25 13:44 4 MG Enoxaparin Sodium 40 mg DAILY SC 02/11/25 10:00 02/11/25 10:38 40 MG Acetaminophen 650 mg Q6HP PRN PO 02/10/25 19:45 Methylprednisolone Sodium Succinate 80 mg BID IV 02/11/25 22:00 Albuterol 2.5 mg Q4HR NEB 02/11/25 18:00 Ipratropium [place] 0.5 mg Q4HR NEB 02/11/25 18:00 Budesonide 0.5 mg BID NEB 02/11/25 22:00 Ceftriaxone Sodium 50 ml @ 100 mls/hr DAILY@09 IV 02/11/25 15:30 UNV Laboratory Results Laboratory Tests 02/11/25 05:35 Chemistry Test 02/10/25 16:20 02/11/25 05:35 Calcium Level 10.0 mg/dL (8.7-10.4) 9.7 mg/dL (8.7-10.4) Coagulation Test 02/10/25 19:06 D-Dimer, Quantitative < 0.19 mg/L FEU (0.0-0.49) Urinalysis Test 02/10/25 22:08 Urine Color Light-yellow (Yellow) Urine Clarity Clear (Clear) Urine pH 6.0 (5.0-9.0) Urine Specific [place] 1.023 (1.001-1.035) Urine Protein Negative (Negative) Urine Ketones Trace (Negative) Urine Blood Negative /uL (Negative) Urine Nitrite Negative (Negative) Urine Bilirubin Negative (Negative) Urine Urobilinogen Normal mg/dL (Negative) Urine Leukocyte Esterase 1+ /uL (Negative) Urine RBC 1 /hpf (0 - 4) Urine Microscopic WBC 7 /HPF (0-5) H Urine Squamous Epithelial Cells Few /hpf (<5) Urine Bacteria None seen /hpf (None Seen) Urine Glucose Trace mg/dL (Normal) Labs and/or images reviewed: Labs reviewed by me, Image(s) reviewed by me Assessment/Plan Assessment/Plan Impression: -Acute Hypoxic Respiratory Failure -Pneumonia, gram+/gram- etiology -Copd -Anxiety -Hx of smoking Plan: -Q6hr duoneb -Pulmicort -Change abx to Levaquin -Increase Solumedrol -Repeat chest x-ray and labs in am. Total time: 35min. Plan discussed with: Patient, Other (RN) My Orders Orders - NAHUN TYSON CHARTERED ACCOUNTANT Procedure Category Date Status Time Methylprednisolone PHA 02/11/25 In Process Sod Succ (Solu Medrol 22:00 Albuterol Medneb PHA 02/11/25 In Process (Ventolin Medneb) 18:00 Ipratropium Medneb PHA 02/11/25 In Process (Atrovent Medneb) 18:00 Budesonide PHA 02/11/25 In Process (Inhalation) 22:00 Ceftriaxone 1gm/50ml PHA 02/11/25 Logged (Rocephin) 15:30 Basic Metabolic Panel LAB 02/12/25 Verified 04:00 Complete Blood Count LAB 02/12/25 Verified 04:00 Date of Service: Feb 11, 2025 Billing Provider: NAHUN TYSON NP Common Visit Codes: [id number] INP/OBS CARE(HIGH) NAHUN TYSON NP Feb 11, 2025 16:21
[2025-02-11] MEDS: ALBUTEROL SULF 2.5 MG/0.5ML(0.5%) NEB SOLN NEB SCH (18:00)
[2025-02-11] MEDS: IPRATROPIUM BROM 0.5 MG/2.5ML INH SOL NEB SCH (18:00)
[2025-02-11] MEDS: ALPRAZolam 0.5 MG TAB PO PRN (18:34)
[2025-02-11] MEDS ORDERED: AZITHROMYCIN 500MG/250ML 250 ML IV SCH (21:00)
[2025-02-11] MEDS: BUDESONIDE (INHALATION) 0.5 MG/2 ML NEB NEB SCH (21:46)
[2025-02-11] MEDS ORDERED: ALPRAZolam 0.5 MG TAB PO SCH (22:00)
[2025-02-11] MEDS: methylPREDNISolone SOD SUCC 125 MG/2 ML VL IV SCH (23:37)
[2025-02-12] VITALS (20 sets, daily range): BP systolic 113–131; BP diastolic 49–76; PULSE 71–97; RESP 16–20; TEMP 97.4–98.2; O2SAT 87–99
[2025-02-12 05:05] LABS: Hematocrit 38.0 % (36.0-46.0); Hemoglobin 12.6 g/dL (12.2-16.2); Mean Corpuscular Hemoglobin 29.2 pg (28.0-32.0); Mean Corpuscular Volume 88.1 fL (80.0-100.0); Nucleated Red Blood Cells % 0.0 %
[2025-02-12 05:15] LABS: Anion Gap 15 (5-15); Carbon Dioxide 22 mmol/L (20-31); Chloride 106 mmol/L (98-107); Potassium 4.0 mmol/L (3.5-5.1); Sodium 143 mmol/L (136-145)
[2025-02-12 05:17] LABS: Calcium 9.5 mg/dL (8.7-10.4)
[2025-02-12 05:22] LABS: BUN/Creatinine Ratio 27.8 (10.0-20.0); Blood Urea Nitrogen 20 mg/dL (9-23)
[2025-02-12 05:34] LABS: Glucose 156 mg/dL (74-106)
--- NOTE | 2025-02-12 08:24 | DVH ---
EXAM: XY CHEST PORTABLE Indication: pain; pna Technique: Single frontal view of the chest was obtained Comparison: XY CHEST PORTABLE on DOS: 02/10/25, XY CHEST PORTABLE on DOS: 07/11/24, CT CHEST WITHOUT CONTRAST on DOS: 06/23/24, XY CHEST PORTABLE on DOS: 09/05/23, CT CHEST WITH CONTRAST on DOS: 09/05/23 FINDINGS: Lines and Tubes: None Lungs: No focal consolidation. Right upper lung scarring. Pleura: No effusion. No pneumothorax. Cardiomediastinal contours: Unremarkable Bones: No acute osseous abnormality. IMPRESSION: Right upper lung scarring.No acute cardiopulmonary disease.
--- NOTE | 2025-02-12 11:12 | DVHPN2 ---
Subjective Patient reports shortness of breath. Reviewed: Care Plan, H&P, Labs, Medications, Previous Orders Changes from previous H/P or p: No Changes General: Per HPI Objective Vitals Vital Signs Date Time Temp Pulse Resp B/P (MAP) Pulse Ox O2 Delivery O2 Flow Rate FiO2 02/12/25 10:24 91 20 99 02/12/25 10:15 2.0 02/12/25 10:15 Nasal Cannula* 28 02/12/25 08:20 98.0 131/76 (94) 98.0 Intake/Output Intake and Output 02/12/25 07:00 Intake Total 500 ml Balance 500 ml Intake Oral 500 ml # Voids 1 General Appearance: Alert, Oriented X3, Cooperative, mild distress HEENT: Atraumatic, PERRLA Lungs: Other (NC at 4lpm. Inspiratory and expiratory failure) Cardiovascular: Normal S1, Normal S2 Abdomen: Normal bowel sounds, Soft, No tenderness, No hepatospenomegaly Musculoskeletal: Normal sensory function, Normal motor function Skin: Dry, Intact Psych/Mental Status: Mental status NL, Mood NL Medications Current Medications Medications Dose Ordered Sig/Kulwinder Route Start Time Stop Time Status Last Admin Dose Admin Montelukast Sodium 10 mg HS PO 02/10/25 22:00 02/11/25 23:37 10 MG Pantoprazole Sodium 40 mg DAILY@0600 PO 02/11/25 06:00 02/12/25 05:03 40 MG Acetaminophen/ Hydrocodone Bitart 1 tab Q6HP PRN PO 02/10/25 19:45 Ondansetron HCl 4 mg Q4HP PRN IV 02/10/25 19:45 02/12/25 08:37 4 MG Enoxaparin Sodium 40 mg DAILY SC 02/11/25 10:00 02/12/25 08:38 40 MG Acetaminophen 650 mg Q6HP PRN PO 02/10/25 19:45 Methylprednisolone Sodium Succinate 80 mg BID IV 02/11/25 22:00 02/12/25 08:38 80 MG Albuterol 2.5 mg Q4HR NEB 02/11/25 18:00 02/12/25 10:15 2.5 MG Ipratropium [place] 0.5 mg Q4HR NEB 02/11/25 18:00 02/12/25 10:15 0.5 MG Budesonide 0.5 mg BID NEB 02/11/25 22:00 02/12/25 07:56 0.5 MG Levofloxacin/ Dextrose 100 ml @ 100 mls/hr DAILY IV 02/12/25 10:00 02/12/25 08:38 100 MLS/HR Alprazolam 0.5 mg TID PRN PO 02/11/25 18:00 02/12/25 05:56 0.5 MG Polyethylene Glycol 17 gm DAILY PO 02/13/25 10:00 UNV Laboratory Results Laboratory Tests 02/12/25 04:37 Chemistry Test 02/12/25 04:37 Calcium Level 9.5 mg/dL (8.7-10.4) Urinalysis Test 02/10/25 22:08 Urine Color Light-yellow (Yellow) Urine Clarity Clear (Clear) Urine pH 6.0 (5.0-9.0) Urine Specific [place] 1.023 (1.001-1.035) Urine Protein Negative (Negative) Urine Ketones Trace (Negative) Urine Blood Negative /uL (Negative) Urine Nitrite Negative (Negative) Urine Bilirubin Negative (Negative) Urine Urobilinogen Normal mg/dL (Negative) Urine Leukocyte Esterase 1+ /uL (Negative) Urine RBC 1 /hpf (0 - 4) Urine Microscopic WBC 7 /HPF (0-5) H Urine Squamous Epithelial Cells Few /hpf (<5) Urine Bacteria None seen /hpf (None Seen) Urine Glucose Trace mg/dL (Normal) Labs and/or images reviewed: Labs reviewed by me, Image(s) reviewed by me Assessment/Plan Assessment/Plan Impression: -Acute Hypoxic Respiratory Failure -Pneumonia, gram+/gram- etiology -Copd -Anxiety -Hx of smoking Plan: -Q6hr duoneb -Pulmicort -Continue abx Levaquin -Increase Solumedrol -Started stool softener -Repeat chest x-ray and labs in am. Total time: 35min. Plan discussed with: Patient, Other (RN) Date of Service: Feb 12, 2025 Billing Provider: NAHUN TYSON NP Common Visit Codes: [id number] INP/OBS CARE (HIGH) ANTOLIN LUJAN STUDENT [employer] DESIGN ENGINEER Feb 12, 2025 11:12
--- NOTE | 2025-02-12 11:37 | DVHPN2 ---
Subjective Reports persistent SOB, anxiety, constipation Reviewed: Care Plan, H&P, Labs, Medications, Previous Orders Changes from previous H/P or p: No Changes General: Per HPI Objective Vitals Vital Signs Date Time Temp Pulse Resp B/P (MAP) Pulse Ox O2 Delivery O2 Flow Rate FiO2 02/12/25 10:24 91 20 99 02/12/25 10:15 2.0 02/12/25 10:15 Nasal Cannula* 28 02/12/25 08:20 98.0 131/76 (94) 98.0 Intake/Output Intake and Output 02/12/25 07:00 Intake Total 500 ml Balance 500 ml Intake Oral 500 ml # Voids 1 General Appearance: Alert, Oriented X3, Cooperative, mild distress HEENT: Atraumatic, PERRLA Lungs: Other (NC at 4lpm. Inspiratory and expiratory failure) Cardiovascular: Normal S1, Normal S2 Abdomen: Normal bowel sounds, Soft, No tenderness, No hepatospenomegaly Musculoskeletal: Normal sensory function, Normal motor function Skin: Dry, Intact Psych/Mental Status: Mental status NL, Mood NL Medications Current Medications Medications Dose Ordered Sig/Kulwinder Route Start Time Stop Time Status Last Admin Dose Admin Montelukast Sodium 10 mg HS PO 02/10/25 22:00 02/11/25 23:37 10 MG Pantoprazole Sodium 40 mg DAILY@0600 PO 02/11/25 06:00 02/12/25 05:03 40 MG Acetaminophen/ Hydrocodone Bitart 1 tab Q6HP PRN PO 02/10/25 19:45 Ondansetron HCl 4 mg Q4HP PRN IV 02/10/25 19:45 02/12/25 08:37 4 MG Enoxaparin Sodium 40 mg DAILY SC 02/11/25 10:00 02/12/25 08:38 40 MG Acetaminophen 650 mg Q6HP PRN PO 02/10/25 19:45 Methylprednisolone Sodium Succinate 80 mg BID IV 02/11/25 22:00 02/12/25 08:38 80 MG Albuterol 2.5 mg Q4HR NEB 02/11/25 18:00 02/12/25 10:15 2.5 MG Ipratropium [place] 0.5 mg Q4HR NEB 02/11/25 18:00 02/12/25 10:15 0.5 MG Budesonide 0.5 mg BID NEB 02/11/25 22:00 02/12/25 07:56 0.5 MG Levofloxacin/ Dextrose 100 ml @ 100 mls/hr DAILY IV 02/12/25 10:00 02/12/25 08:38 100 MLS/HR Alprazolam 0.5 mg TID PRN PO 02/11/25 18:00 02/12/25 05:56 0.5 MG Polyethylene Glycol 17 gm DAILY PO 02/13/25 10:00 Laboratory Results Laboratory Tests 02/12/25 04:37 Chemistry Test 02/12/25 04:37 Calcium Level 9.5 mg/dL (8.7-10.4) Urinalysis Test 02/10/25 22:08 Urine Color Light-yellow (Yellow) Urine Clarity Clear (Clear) Urine pH 6.0 (5.0-9.0) Urine Specific [place] 1.023 (1.001-1.035) Urine Protein Negative (Negative) Urine Ketones Trace (Negative) Urine Blood Negative /uL (Negative) Urine Nitrite Negative (Negative) Urine Bilirubin Negative (Negative) Urine Urobilinogen Normal mg/dL (Negative) Urine Leukocyte Esterase 1+ /uL (Negative) Urine RBC 1 /hpf (0 - 4) Urine Microscopic WBC 7 /HPF (0-5) H Urine Squamous Epithelial Cells Few /hpf (<5) Urine Bacteria None seen /hpf (None Seen) Urine Glucose Trace mg/dL (Normal) Labs and/or images reviewed: Labs reviewed by me, Image(s) reviewed by me Assessment/Plan Assessment/Plan Impression: -Acute Hypoxic Respiratory Failure -Pneumonia, gram+/gram- etiology -Copd -Anxiety -Hx of smoking Plan: Events: Continues to report having anxiety, now constipation, now left lower rib pain -Q6hr duoneb -Pulmicort -continue Xanax 0.5 mg q.8 hours -bowel regimen -trial of Toradol -continue antibiotic therapy with Levaquin -continue Solu-Medrol -repeat labs in a.m. Total time spent with patient discussing and formulating plan of care: 35 minutes. This medical document was created using an electronic medical record system with [employer] dictation system. Although this document has been carefully reviewed, there may still be some phonetic and typographical errors. These areas are purely typographical due to imperfections of the software programs, and do not reflect any compromise in the patient's medical care. Plan discussed with: Patient, Other (RN) My Orders Orders - NAHUN TYSON NP Procedure Category Date Status Time Methylprednisolone PHA 02/11/25 In Process Sod Succ (Solu Medrol 22:00 Albuterol Medneb PHA 02/11/25 In Process (Ventolin Medneb) 18:00 Ipratropium Medneb PHA 02/11/25 In Process (Atrovent Medneb) 18:00 Budesonide PHA 02/11/25 In Process (Inhalation) 22:00 Levofloxacin 500mg PHA 02/12/25 In Process (Levaquin 500mg/ 100m 10:00 Chest Portable XY 02/12/25 Resulted 04:00 Complete Blood Count LAB 02/13/25 Verified 04:00 Basic Metabolic Panel LAB 02/13/25 Verified 04:00 Polyethylene Glycol PHA 02/13/25 In Process 17g Powder (Miralax 10:00 Chest Portable XY 02/13/25 Logged 06:00 Date of Service: Feb 12, 2025 Billing Provider: NAHUN TYSON NP Common Visit Codes: [id number] INP/OBS CARE(HIGH) NAHUN TYSON NP Feb 12, 2025 11:37
[2025-02-12] MEDS ORDERED: KETOROLAC TROMETH 30 MG/ML 1ML VIAL IV ONE (12:15)
[2025-02-12] MEDS: HYDROcodone-ACET 5/325MG TAB PO PRN (12:30)
[2025-02-12] MEDS: POLYETHYLENE GLYCOL 17 GM PWDR PO ONE (12:30)
[2025-02-12] MEDS: LORazepam 2MG/ML-1ML VIAL IV ONE (12:35)
[2025-02-13] VITALS (21 sets, daily range): BP systolic 100–136; BP diastolic 67–88; PULSE 86–104; RESP 14–20; TEMP 96.6–98.3; O2SAT 90–98
[2025-02-13 05:16] LABS: Hematocrit 39.7 % (36.0-46.0); Hemoglobin 12.9 g/dL (12.2-16.2); Mean Corpuscular Hemoglobin 28.9 pg (28.0-32.0); Mean Corpuscular Volume 88.8 fL (80.0-100.0); Nucleated Red Blood Cells % 0.0 %
[2025-02-13 05:23] LABS: Chloride 105 mmol/L (98-107); Potassium 4.4 mmol/L (3.5-5.1); Sodium 142 mmol/L (136-145)
[2025-02-13 05:24] LABS: Anion Gap 12 (5-15); Calcium 9.6 mg/dL (8.7-10.4); Carbon Dioxide 25 mmol/L (20-31)
[2025-02-13 05:29] LABS: BUN/Creatinine Ratio 22.1 (10.0-20.0); Blood Urea Nitrogen 15 mg/dL (9-23); Glucose 105 mg/dL (74-106)
--- NOTE | 2025-02-13 05:48 | DVH ---
CHEST RADIOGRAPH Indication: acute respiratory failure Technique: 1 view Comparison: XY CHEST PORTABLE on DOS: 02/12/25, XY CHEST PORTABLE on DOS: 02/10/25, XY CHEST PORTABLE on DOS: 07/11/24, XY CHEST PORTABLE on DOS: 09/05/23, XY CHEST PORTABLE on DOS: 07/04/23 FINDINGS: Lines and Tubes: None. Lungs/Pleura: Unchanged. Cardiomediastinum: Unchanged. Other: No acute osseous abnormality. IMPRESSION: 1. No change from the previous study. Emphysematous appearing lungs without acute consolidation.
[2025-02-13] MEDS: POLYETHYLENE GLYCOL 17 GM PWDR PO SCH (11:40)
[2025-02-13] MEDS: ALBUTEROL SULF 2.5 MG/0.5ML(0.5%) NEB SOLN NEB ONE (11:40)
--- NOTE | 2025-02-13 12:02 | DVHPN2 ---
Subjective Patient reports shortness of breath, constipation, nausea, vomiting, and anxiety. Reviewed: Care Plan, H&P, Labs, Medications, Previous Orders Changes from previous H/P or p: Changes General: Per HPI Gastrointestinal: Vomiting, Constipation Psych: Anxiety Objective Vitals Vital Signs Date Time Temp Pulse Resp B/P (MAP) Pulse Ox O2 Delivery O2 Flow Rate FiO2 02/13/25 11:41 88 20 02/13/25 09:00 98.3 121/70 (87) 97 98.3 02/13/25 08:00 Nasal Cannula* 3 32 Intake/Output Intake and Output 02/13/25 07:00 Intake Total 1150 ml Balance 1150 ml Intake Oral 1150 ml # Voids 5 General Appearance: Alert, Oriented X3, Cooperative, mild distress HEENT: Atraumatic, PERRLA Lungs: Other (NC at 4lpm. Inspiratory and expiratory failure) Cardiovascular: Normal S1, Normal S2 Abdomen: Normal bowel sounds, Soft, No tenderness, No hepatospenomegaly Musculoskeletal: Normal sensory function, Normal motor function Skin: Dry, Intact Psych/Mental Status: Mental status NL, Mood NL Medications Current Medications Medications Dose Ordered Sig/Kul[place]inder Route Start Time Stop Time Status Last Admin Dose Admin Montelukast Sodium 10 mg HS PO 02/10/25 22:00 02/12/25 22:01 10 MG Pantoprazole Sodium 40 mg DAILY@0600 PO 02/11/25 06:00 02/13/25 06:12 40 MG Acetaminophen/ Hydrocodone Bitart 1 tab Q6HP PRN PO 02/10/25 19:45 02/12/25 12:30 1 TAB Ondansetron HCl 4 mg Q4HP PRN IV 02/10/25 19:45 02/12/25 08:37 4 MG Enoxaparin Sodium 40 mg DAILY SC 02/11/25 10:00 02/13/25 11:40 40 MG Acetaminophen 650 mg Q6HP PRN PO 02/10/25 19:45 Methylprednisolone Sodium Succinate 80 mg BID IV 02/11/25 22:00 02/13/25 11:40 80 MG Albuterol 2.5 mg Q4HR NEB 02/11/25 18:00 02/13/25 06:48 2.5 MG Ipratropium [place] 0.5 mg Q4HR NEB 02/11/25 18:00 02/13/25 06:48 0.5 MG Budesonide 0.5 mg BID NEB 02/11/25 22:00 02/13/25 11:40 0.5 MG Levofloxacin/ Dextrose 100 ml @ 100 mls/hr DAILY IV 02/12/25 10:00 02/13/25 11:39 100 MLS/HR Alprazolam 0.5 mg TID PRN PO 02/11/25 18:00 02/13/25 06:11 0.5 MG Polyethylene Glycol 17 gm DAILY PO 02/13/25 10:00 02/13/25 11:40 17 GM Lactulose 30 ml BID PO 02/13/25 10:00 Laboratory Results Laboratory Tests 02/13/25 04:52 Chemistry Test 02/13/25 04:52 Calcium Level 9.6 mg/dL (8.7-10.4) Urinalysis Test 02/10/25 22:08 Urine Color Light-yellow (Yellow) Urine Clarity Clear (Clear) Urine pH 6.0 (5.0-9.0) Urine Specific [place] 1.023 (1.001-1.035) Urine Protein Negative (Negative) Urine Ketones Trace (Negative) Urine Blood Negative /uL (Negative) Urine Nitrite Negative (Negative) Urine Bilirubin Negative (Negative) Urine Urobilinogen Normal mg/dL (Negative) Urine Leukocyte Esterase 1+ /uL (Negative) Urine RBC 1 /hpf (0 - 4) Urine Microscopic WBC 7 /HPF (0-5) H Urine Squamous Epithelial Cells Few /hpf (<5) Urine Bacteria None seen /hpf (None Seen) Urine Glucose Trace mg/dL (Normal) Labs and/or images reviewed: Labs reviewed by me, Image(s) reviewed by me Assessment/Plan Assessment/Plan Impression: -Acute Hypoxic Respiratory Failure -Pneumonia, gram+/gram- etiology -Copd -Anxiety -Hx of smoking Plan: -Q6hr duoneb -Pulmicort -Continue abx Levaquin -Continue Solumedrol -Continue xanax for anxiety -Continue stool softener -KUB ordered -Repeat labs in am. Total time: 35min. Plan discussed with: Patient, Other (RN) Date of Service: Feb 13, 2025 Billing Provider: NAHUN TYSON NATIONAL COVERAGE SPECIALIST Common Visit Codes: [id number] INP/OBS CARE(HIGH) ANTOLIN LUJAN STUDENT NATIONAL COVERAGE SPECIALIST Feb 13, 2025 12:02
--- NOTE | 2025-02-13 12:15 | DVHPN2 ---
Subjective Patient continues to have shortness of breath, abdominal pain, nausea/vomiting. Reviewed: Care Plan, H&P, Labs, Medications, Previous Orders Changes from previous H/P or p: No Changes General: Per HPI Gastrointestinal: Vomiting, Constipation Psych: Anxiety Objective Vitals Vital Signs Date Time Temp Pulse Resp B/P (MAP) Pulse Ox O2 Delivery O2 Flow Rate FiO2 02/13/25 11:41 88 20 02/13/25 09:00 98.3 121/70 (87) 97 98.3 02/13/25 08:00 Nasal Cannula* 3 32 Intake/Output Intake and Output 02/13/25 07:00 Intake Total 1150 ml Balance 1150 ml Intake Oral 1150 ml # Voids 5 General Appearance: Alert, Oriented X3, Cooperative, mild distress HEENT: Atraumatic, PERRLA Lungs: Other (NC at 4lpm. Inspiratory and expiratory failure) Cardiovascular: Normal S1, Normal S2 Abdomen: Normal bowel sounds, Soft, No tenderness, No hepatospenomegaly Musculoskeletal: Normal sensory function, Normal motor function Skin: Dry, Intact Psych/Mental Status: Mental status NL, Mood NL Medications Current Medications Medications Dose Ordered Sig/[place] Route Start Time Stop Time Status Last Admin Dose Admin Montelukast Sodium 10 mg HS PO 02/10/25 22:00 02/12/25 22:01 10 MG Pantoprazole Sodium 40 mg DAILY@0600 PO 02/11/25 06:00 02/13/25 06:12 40 MG Acetaminophen/ Hydrocodone Bitart 1 tab Q6HP PRN PO 02/10/25 19:45 02/12/25 12:30 1 TAB Ondansetron HCl 4 mg Q4HP PRN IV 02/10/25 19:45 02/12/25 08:37 4 MG Enoxaparin Sodium 40 mg DAILY SC 02/11/25 10:00 02/13/25 11:40 40 MG Acetaminophen 650 mg Q6HP PRN PO 02/10/25 19:45 Methylprednisolone Sodium Succinate 80 mg BID IV 02/11/25 22:00 02/13/25 11:40 80 MG Albuterol 2.5 mg Q4HR NEB 02/11/25 18:00 02/13/25 06:48 2.5 MG Ipratropium [place] 0.5 mg Q4HR NEB 02/11/25 18:00 02/13/25 06:48 0.5 MG Budesonide 0.5 mg BID NEB 02/11/25 22:00 02/13/25 11:40 0.5 MG Levofloxacin/ Dextrose 100 ml @ 100 mls/hr DAILY IV 02/12/25 10:00 02/13/25 11:39 100 MLS/HR Alprazolam 0.5 mg TID PRN PO 02/11/25 18:00 02/13/25 06:11 0.5 MG Polyethylene Glycol 17 gm DAILY PO 02/13/25 10:00 02/13/25 11:40 17 GM Lactulose 30 ml BID PO 02/13/25 10:00 Laboratory Results Laboratory Tests 02/13/25 04:52 Chemistry Test 02/13/25 04:52 Calcium Level 9.6 mg/dL (8.7-10.4) Urinalysis Test 02/10/25 22:08 Urine Color Light-yellow (Yellow) Urine Clarity Clear (Clear) Urine pH 6.0 (5.0-9.0) Urine Specific [place] 1.023 (1.001-1.035) Urine Protein Negative (Negative) Urine Ketones Trace (Negative) Urine Blood Negative /uL (Negative) Urine Nitrite Negative (Negative) Urine Bilirubin Negative (Negative) Urine Urobilinogen Normal mg/dL (Negative) Urine Leukocyte Esterase 1+ /uL (Negative) Urine RBC 1 /hpf (0 - 4) Urine Microscopic WBC 7 /HPF (0-5) H Urine Squamous Epithelial Cells Few /hpf (<5) Urine Bacteria None seen /hpf (None Seen) Urine Glucose Trace mg/dL (Normal) Labs and/or images reviewed: Labs reviewed by me, Image(s) reviewed by me Assessment/Plan Assessment/Plan Impression: -Acute Hypoxic Respiratory Failure -Pneumonia, gram+/gram- etiology -Copd -Anxiety -Hx of smoking Plan: Events: Patient now reporting nausea and vomiting. -KUB -continuous albuterol treatment given persistent inspiratory and expiratory wheezing -Q6hr duoneb -Pulmicort -continue Xanax 0.5 mg q.8 hours -bowel regimen -trial of Toradol -continue antibiotic therapy with Levaquin -continue Solu-Medrol -repeat labs in a.m. Total time spent with patient discussing and formulating plan of care: 35 minutes. This medical document was created using an electronic medical record system with [employer] dictation system. Although this document has been carefully reviewed, there may still be some phonetic and typographical errors. These areas are purely typographical due to imperfections of the software programs, and do not reflect any compromise in the patient's medical care. Plan discussed with: Patient, Other (RN) My Orders Orders - NAHUN TYSON NP Procedure Category Date Status Time Lactulose Oral PHA 02/13/25 In Process 10:00 Kub Abdomen Single XY 02/13/25 Logged View 10:49 Basic Metabolic Panel LAB 02/14/25 Verified 04:00 Complete Blood Count LAB 02/14/25 Verified 04:00 Date of Service: Feb 13, 2025 Billing Provider: NAHUN TYSON NP Common Visit Codes: [id number] INP/OBS CARE(HIGH) NAHUN TYSON NP Feb 13, 2025 12:15
--- NOTE | 2025-02-13 15:31 | DVH ---
Date: 02/13/2025 02:53 PM Examination: XY KUB ABDOMEN SINGLE VIEW History: vomiting/constipation Comparison: None TECHNIQUE: Frontal views of the abdomen was obtained. FINDINGS/IMPRESSION: Nonspecific bowel gas pattern. Moderate stool burden. No free air. 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
[2025-02-13] MEDS: LACTULOSE 20Gm/30ML SOLN PO SCH (15:48)
[2025-02-14] VITALS (20 sets, daily range): BP systolic 112–133; BP diastolic 61–89; PULSE 73–102; RESP 14–21; TEMP 97.1–98.3; O2SAT 92–99
[2025-02-14 06:22] LABS: Hematocrit 39.5 % (36.0-46.0); Hemoglobin 13.0 g/dL (12.2-16.2); Mean Corpuscular Hemoglobin 29.4 pg (28.0-32.0); Mean Corpuscular Volume 89.5 fL (80.0-100.0)
[2025-02-14 06:33] LABS: Chloride 103 mmol/L (98-107); Potassium 4.1 mmol/L (3.5-5.1); Sodium 141 mmol/L (136-145)
[2025-02-14 06:34] LABS: Anion Gap 12 (5-15); Carbon Dioxide 26 mmol/L (20-31)
[2025-02-14 06:35] LABS: Calcium 9.4 mg/dL (8.7-10.4)
[2025-02-14 06:39] LABS: BUN/Creatinine Ratio 18.9 (10.0-20.0); Blood Urea Nitrogen 14 mg/dL (9-23)
[2025-02-14 06:45] LABS: Glucose 124 mg/dL (74-106)
[2025-02-14 06:51] LABS: Total Cells Counted 100.0 (100)
--- NOTE | 2025-02-14 12:48 | DVHPN2 ---
Reviewed: Care Plan, H&P, Labs, Medications, Previous Orders Changes from previous H/P or p: No Changes General: Per HPI Gastrointestinal: Vomiting, Constipation Psych: Anxiety Objective Vitals Vital Signs Date Time Temp Pulse Resp B/P (MAP) Pulse Ox O2 Delivery O2 Flow Rate FiO2 02/14/25 10:44 96 18 02/14/25 10:28 94 02/14/25 08:30 97.1 133/75 (94) 97.1 02/14/25 08:00 Nasal Cannula* 3 32 Intake/Output Intake and Output 02/14/25 07:00 Intake Total 2400 ml Balance 2400 ml Intake Oral 2300 ml IV Total 100 ml # Voids 9 General Appearance: Alert, Oriented X3, Cooperative, mild distress HEENT: Atraumatic, PERRLA Lungs: Other (NC at 4lpm. Inspiratory and expiratory failure) Cardiovascular: Normal S1, Normal S2 Abdomen: Normal bowel sounds, Soft, No tenderness, No hepatospenomegaly Musculoskeletal: Normal sensory function, Normal motor function Skin: Dry, Intact Psych/Mental Status: Mental status NL, Mood NL Medications Current Medications Medications Dose Ordered Sig/[place]inder Route Start Time Stop Time Status Last Admin Dose Admin Montelukast Sodium 10 mg HS PO 02/10/25 22:00 02/13/25 21:18 10 MG Pantoprazole Sodium 40 mg DAILY@0600 PO 02/11/25 06:00 02/13/25 06:12 40 MG Acetaminophen/ Hydrocodone Bitart 1 tab Q6HP PRN PO 02/10/25 19:45 02/12/25 12:30 1 TAB Ondansetron HCl 4 mg Q4HP PRN IV 02/10/25 19:45 02/14/25 10:06 4 MG Enoxaparin Sodium 40 mg DAILY SC 02/11/25 10:00 02/14/25 08:41 40 MG Acetaminophen 650 mg Q6HP PRN PO 02/10/25 19:45 Methylprednisolone Sodium Succinate 80 mg BID IV 02/11/25 22:00 02/14/25 10:06 80 MG Albuterol 2.5 mg Q4HR NEB 02/11/25 18:00 02/14/25 10:28 2.5 MG Ipratropium [place] 0.5 mg Q4HR NEB 02/11/25 18:00 02/14/25 10:28 0.5 MG Budesonide 0.5 mg BID NEB 02/11/25 22:00 02/14/25 10:28 0.5 MG Levofloxacin/ Dextrose 100 ml @ 100 mls/hr DAILY IV 02/12/25 10:00 02/14/25 10:06 100 MLS/HR Alprazolam 0.5 mg TID PRN PO 02/11/25 18:00 02/14/25 09:33 0.5 MG Polyethylene Glycol 17 gm DAILY PO 02/13/25 10:00 02/14/25 08:41 17 GM Lactulose 30 ml BID PO 02/13/25 10:00 02/14/25 08:41 30 ML Laboratory Results Laboratory Tests 02/14/25 04:58 Chemistry Test 02/14/25 04:58 Calcium Level 9.4 mg/dL (8.7-10.4) Urinalysis Test 02/10/25 22:08 Urine Color Light-yellow (Yellow) Urine Clarity Clear (Clear) Urine pH 6.0 (5.0-9.0) Urine Specific [place] 1.023 (1.001-1.035) Urine Protein Negative (Negative) Urine Ketones Trace (Negative) Urine Blood Negative /uL (Negative) Urine Nitrite Negative (Negative) Urine Bilirubin Negative (Negative) Urine Urobilinogen Normal mg/dL (Negative) Urine Leukocyte Esterase 1+ /uL (Negative) Urine RBC 1 /hpf (0 - 4) Urine Microscopic WBC 7 /HPF (0-5) H Urine Squamous Epithelial Cells Few /hpf (<5) Urine Bacteria None seen /hpf (None Seen) Urine Glucose Trace mg/dL (Normal) Labs and/or images reviewed: Labs reviewed by me, Image(s) reviewed by me Assessment/Plan Assessment/Plan 74-year-old female presents for evaluation of shortness for breath. Patient reports a one-week history of worsening shortness for breath with associated productive cough with green phlegm as well as congestion and wheezing. Denies fever. Reports occasional chills. No chest pain. Past Medical History COPD, depression, currently, anxiety 02/13: Events: Patient now reporting nausea and vomiting. 02/14: Patient is here for COPD exacerbation, with bronchitis, possible pneumonia. Continuing Levaquin. We will add Mucomyst b.i.d.. Continue albuterol Atrovent treatments per primary team plan. Patient is on home oxygen 3 L, currently on 2 L nasal cannula. Improving, still has diffuse wheezing and rhonchi on the right diffusing is wheezing is diffuse. Patient is still appears short of breath, some minimal work of breathing, we will continue treatment. We will also check flu COVID. Impression: -Acute Hypoxic Respiratory Failure -Pneumonia, gram+/gram- etiology -Copd -Anxiety -Hx of smoking Plan: -KUB -continuous albuterol treatment given persistent inspiratory and expiratory wheezing -Q6hr duoneb -Pulmicort -continue Xanax 0.5 mg q.8 hours -bowel regimen -trial of Toradol -continue antibiotic therapy with Levaquin -continue Solu-Medrol -repeat labs in a.m. Total time spent with patient discussing and formulating plan of care: 35 minutes. Plan discussed with: Patient Date of Service: Feb 14, 2025 Billing Provider: VERÓNICA MARES MD Common Visit Codes: [id number] INP/OBS CARE(HIGH) VERÓNICA MARES MD Feb 14, 2025 12:48
[2025-02-14] MEDS: ACETYLCYSTEINE 10 %(100MG/ML) SOL 4ML NEB SCH (18:49)
[2025-02-14 20:26] LABS: COVID19 ANTIGEN SOFIA FIA NEGATIVE (NEGATIVE)
[2025-02-15] VITALS (16 sets, daily range): BP systolic 111–136; BP diastolic 62–81; PULSE 81–103; RESP 16–20; TEMP 97.8–98.6; O2SAT 91–99
[2025-02-15 06:47] LABS: Hematocrit 39.6 % (36.0-46.0); Hemoglobin 13.0 g/dL (12.2-16.2); Mean Corpuscular Hemoglobin 29.1 pg (28.0-32.0); Mean Corpuscular Volume 88.4 fL (80.0-100.0); Nucleated Red Blood Cells % 0.1 %
[2025-02-15 07:09] LABS: Alanine Aminotransferase 13 U/L (7-40); Albumin 4.0 g/dL (3.2-4.8); Alkaline Phosphatase 93 U/L (46-116); Anion Gap 13 (5-15); BUN/Creatinine Ratio 20.8 (10.0-20.0); Bilirubin, Total 0.5 mg/dL (0.2-1.0); Blood Urea Nitrogen 16 mg/dL (9-23); Calcium 9.4 mg/dL (8.7-10.4); Carbon Dioxide 24 mmol/L (20-31); Chloride 103 mmol/L (98-107); Potassium 4.4 mmol/L (3.5-5.1); Sodium 140 mmol/L (136-145); Total Protein 6.0 g/dL (5.7-8.2)
[2025-02-15 07:11] LABS: Glucose 115 mg/dL (74-106)
--- NOTE | 2025-02-15 11:46 | DVHPN2 ---
Reviewed: Care Plan, H&P, Labs, Medications, Previous Orders Changes from previous H/P or p: No Changes General: Per HPI Gastrointestinal: Vomiting, Constipation Psych: Anxiety Objective Vitals Vital Signs Date Time Temp Pulse Resp B/P (MAP) Pulse Ox O2 Delivery O2 Flow Rate FiO2 02/15/25 09:00 97.8 103 20 119/81 (94) 94 97.8 02/15/25 08:04 Nasal Cannula 2.0 02/15/25 08:04 28 Intake/Output Intake and Output 02/15/25 07:00 Intake Total 1150 ml Balance 1150 ml Intake Oral 1050 ml IV Total 100 ml # Voids 2 General Appearance: Alert, Oriented X3, Cooperative, mild distress HEENT: Atraumatic, PERRLA Lungs: Other (NC at 4lpm. Inspiratory and expiratory failure) Cardiovascular: Normal S1, Normal S2 Abdomen: Normal bowel sounds, Soft, No tenderness, No hepatospenomegaly Musculoskeletal: Normal sensory function, Normal motor function Skin: Dry, Intact Psych/Mental Status: Mental status NL, Mood NL Medications Current Medications Medications Dose Ordered Sig/[place] Route Start Time Stop Time Status Last Admin Dose Admin Montelukast Sodium 10 mg HS PO 02/10/25 22:00 02/14/25 22:02 10 MG Pantoprazole Sodium 40 mg DAILY@0600 PO 02/11/25 06:00 02/15/25 06:36 40 MG Acetaminophen/ Hydrocodone Bitart 1 tab Q6HP PRN PO 02/10/25 19:45 02/14/25 16:26 1 TAB Ondansetron HCl 4 mg Q4HP PRN IV 02/10/25 19:45 02/14/25 16:27 4 MG Enoxaparin Sodium 40 mg DAILY SC 02/11/25 10:00 02/15/25 09:09 40 MG Acetaminophen 650 mg Q6HP PRN PO 02/10/25 19:45 Methylprednisolone Sodium Succinate 80 mg BID IV 02/11/25 22:00 02/15/25 10:44 80 MG Albuterol 2.5 mg Q4HR NEB 02/11/25 18:00 02/15/25 08:00 2.5 MG Ipratropium [place] 0.5 mg Q4HR NEB 02/11/25 18:00 02/15/25 08:00 0.5 MG Budesonide 0.5 mg BID NEB 02/11/25 22:00 02/15/25 08:00 0.5 MG Levofloxacin/ Dextrose 100 ml @ 100 mls/hr DAILY IV 02/12/25 10:00 02/15/25 10:44 100 MLS/HR Alprazolam 0.5 mg TID PRN PO 02/11/25 18:00 02/15/25 09:09 0.5 MG Polyethylene Glycol 17 gm DAILY PO 02/13/25 10:00 02/14/25 08:41 17 GM Lactulose 30 ml BID PO 02/13/25 10:00 02/14/25 08:41 30 ML Acetylcysteine 100 mg BID NEB 02/14/25 22:00 02/14/25 18:49 100 MG Laboratory Results Laboratory Tests 02/15/25 05:02 Chemistry Test 02/15/25 05:02 Albumin 4.0 g/dL (3.2-4.8) Calcium Level 9.4 mg/dL (8.7-10.4) Total Protein 6.0 g/dL (5.7-8.2) LFT Test 02/15/25 05:02 Alanine Aminotransferase (ALT) 13 U/L (7-40) Alkaline Phosphatase 93 U/L (46-116) Aspartate Amino Transferase (AST) 11 U/L (13-40) L Total Bilirubin 0.5 mg/dL (0.2-1.0) Urinalysis Test 02/10/25 22:08 Urine Color Light-yellow (Yellow) Urine Clarity Clear (Clear) Urine pH 6.0 (5.0-9.0) Urine Specific [place] 1.023 (1.001-1.035) Urine Protein Negative (Negative) Urine Ketones Trace (Negative) Urine Blood Negative /uL (Negative) Urine Nitrite Negative (Negative) Urine Bilirubin Negative (Negative) Urine Urobilinogen Normal mg/dL (Negative) Urine Leukocyte Esterase 1+ /uL (Negative) Urine RBC 1 /hpf (0 - 4) Urine Microscopic WBC 7 /HPF (0-5) H Urine Squamous Epithelial Cells Few /hpf (<5) Urine Bacteria None seen /hpf (None Seen) Urine Glucose Trace mg/dL (Normal) Labs and/or images reviewed: Labs reviewed by me, Image(s) reviewed by me Assessment/Plan Assessment/Plan 74-year-old female presents for evaluation of shortness for breath. Patient reports a one-week history of worsening shortness for breath with associated productive cough with green phlegm as well as congestion and wheezing. Denies fever. Reports occasional chills. No chest pain. Past Medical History COPD, depression, currently, anxiety 02/13: Events: Patient now reporting nausea and vomiting. 02/14: Patient is here for COPD exacerbation, with bronchitis, possible pneumonia. Continuing Levaquin. We will add Mucomyst b.i.d.. Continue albuterol Atrovent treatments per primary team plan. Patient is on home oxygen 3 L, currently on 2 L nasal cannula. Improving, still has diffuse wheezing and rhonchi on the right diffusing is wheezing is diffuse. Patient is still appears short of breath, some minimal work of breathing, we will continue treatment. We will also check flu COVID. 02/15: We will start Mucinex, increase Mucomyst to t.i.d.. We will give patients younger to help her get secretions out., Patient has no wheezing today., conversing in full sentences. We will decrease Solu-Medrol to 60 b.i.d., continue nebulizer treatments. As patient continues to improve we will likely discharge tomorrow, patient will need to continue home nebulizer treatments she has albuterol nebulizer already, she will need Mucomyst b.i.d. for 4 more days at home., We will also need a long steroid taper and further antibiotics at home for pneumonitis. Impression: -Acute Hypoxic Respiratory Failure -Pneumonia, gram+/gram- etiology -Copd -Anxiety -Hx of smoking Plan: -KUB -continuous albuterol treatment given persistent inspiratory and expiratory wheezing -Q6hr duoneb -Pulmicort -continue Xanax 0.5 mg q.8 hours -bowel regimen -trial of Toradol -continue antibiotic therapy with Levaquin -continue Solu-Medrol -repeat labs in a.m. Total time spent with patient discussing and formulating plan of care: 35 minutes. Plan discussed with: Patient My Orders Orders - VERÓNICA MARES MD Procedure Category Date Status Time Acetylcysteine PHA 02/14/25 In Process Inhalation 10% 22:00 Date of Service: Feb 15, 2025 Billing Provider: VERÓNICA MARES MD Common Visit Codes: [id number] INP/OBS CARE(HIGH) VERÓNICA MARES MD Feb 15, 2025 11:46
[2025-02-15] MEDS: ACETYLCYSTEINE 10 %(100MG/ML) SOL 4ML ONE (14:10)
[2025-02-15] MEDS: ACETYLCYSTEINE 10 %(100MG/ML) SOL 4ML NEB SCH (14:13)
[2025-02-15] MEDS: methylPREDNISolone SOD SUCC 125 MG/2 ML VL IV SCH (21:44)
[2025-02-16] VITALS (9 sets, daily range): BP systolic 102–132; BP diastolic 59–80; PULSE 74–101; RESP 16–18; TEMP 97.9–98.6; O2SAT 91–99
[2025-02-16] MEDS ORDERED: PRED20TA2 PO (12:53)
[2025-02-16] MEDS ORDERED: LEVO500T91 PO (12:53)
--- NOTE | 2025-02-16 13:00 | DVHDS2 ---
Discharge Summary Date of Admission Feb 10, 2025 at 19:31 Date of Discharge: Feb 16, 2025 Admitting Diagnosis Acute on chronic hypoxic respiratory failure Labs/Diagnostic Data: Laboratory Results Test 02/15/25 05:02 02/14/25 18:50 02/14/25 04:58 02/10/25 22:08 White Blood Count 13.3 10^3/uL (4.4-10.8) Red Blood Count 4.47 10^6/uL (4.0-5.20) Hemoglobin 13.0 g/dL (12.2-16.2) Hematocrit 39.6 % (36.0-46.0) Mean Corpuscular Volume 88.4 fL (80.0-100.0) Mean Corpuscular Hemoglobin 29.1 pg (28.0-32.0) Mean Corpuscular Hemoglobin Concent 32.9 g/dL (32.0-36.0) Red Cell Distribution Width 15.0 % (11.8-14.3) Platelet Count 295 10^3/uL (140-450) Mean Platelet Volume 8.8 fL (6.9-10.8) Neutrophils (%) (Auto) 90.0 % (37.0-80.0) Lymphocytes (%) (Auto) 7.1 % (10.0-50.0) Monocytes (%) (Auto) 2.8 % (0.0-12.0) Eosinophils (%) (Auto) 0.0 % (0.0-7.0) Basophils (%) (Auto) 0.1 % (0.0-2.0) Neutrophils # (Auto) 12.0 10 ^3/uL (1.6-8.6) Lymphocytes # (Auto) 0.9 10 ^3/uL (0.4-5.4) Monocytes # (Auto) 0.4 10 ^3/uL (0-1.3) Eosinophils # (Auto) 0 10 ^3/uL (0-0.8) Basophils # (Auto) 0 10 ^3/uL (0-0.2) Nucleated Red Blood Cells 0.1 % Sodium Level 140 mmol/L (136-145) Potassium Level 4.4 mmol/L (3.5-5.1) Chloride Level 103 mmol/L (98-107) Carbon Dioxide Level 24 mmol/L (20-31) Anion Gap 13 (5-15) Blood Urea Nitrogen 16 mg/dL (9-23) Creatinine 0.77 mg/dL (0.550-1.02) Glomerular Filtration Rate Calc 81 mL/min (>90) BUN/Creatinine Ratio 20.8 (10.0-20.0) Serum Glucose 115 mg/dL (74-106) Calcium Level 9.4 mg/dL (8.7-10.4) Total Bilirubin 0.5 mg/dL (0.2-1.0) Aspartate Amino Transferase (AST) 11 U/L (13-40) Alanine Aminotransferase (ALT) 13 U/L (7-40) Alkaline Phosphatase 93 U/L (46-116) Total Protein 6.0 g/dL (5.7-8.2) Albumin 4.0 g/dL (3.2-4.8) Influenza Type A Antigen Negative (Negative) Influenza Type B Antigen Negative (Negative) SARS-CoV-2 Antigen (Rapid) Negative (NEGATIVE) Differential Total Cells Counted 100.0 (100) Neutrophils % (Manual) 86 (37.0-80.0) Band Neutrophils % (Manual) 0 Lymphocytes % (Manual) 9 (10.0-50.0) Monocytes % (Manual) 5 (0-12) Eosinophils % (Manual) 0 (0-7) Basophils % (Manual) 0 (0.0-2.0) Metamyelocytes % (manual) 0 Myelocytes % (Manual) 0 Promyelocytes % (Manual) 0 Blast Cells % (Manual) 0 Reactive Lymphocytes 0 Platelet Estimate Adequate Urine Color Light-yellow (Yellow) Urine Clarity Clear (Clear) Urine pH 6.0 (5.0-9.0) Urine Specific [place] 1.023 (1.001-1.035) Urine Protein Negative (Negative) Urine Ketones Trace (Negative) Urine Blood Negative /uL (Negative) Urine Nitrite Negative (Negative) Urine Bilirubin Negative (Negative) Urine Urobilinogen Normal mg/dL (Negative) Urine Leukocyte Esterase 1+ /uL (Negative) Urine RBC 1 /hpf (0 - 4) Urine Microscopic WBC 7 /HPF (0-5) Urine Squamous Epithelial Cells Few /hpf (<5) Urine Bacteria None seen /hpf (None Seen) Urine Glucose Trace mg/dL (Normal) Test 02/10/25 19:06 D-Dimer, Quantitative < 0.19 mg/L FEU (0.0-0.49) Troponin I High Sensitivity 4 ng/L (</=34) Other Laboratory Tests 02/15/25 05:02 Brief Hx & Hospital Course: History of Present Illness 74-year-old female presents for evaluation of shortness for breath. Patient reports a one-week history of worsening shortness for breath with associated productive cough with green phlegm as well as congestion and wheezing. Denies fever. Reports occasional chills. No chest pain. Course of hospitalization: Patient was started on IV antibiotic therapy, switched to Levaquin given her allergies to amoxicillin and recent prescription of azithromycin. She was also placed on bronchodilators, IV Solu-Medrol, as well as restarting home antianxiety medications. Patient also reported having abdominal pain, for which KUB revealed constipation. Laxatives restarted. Patient has had positive bowel movement. Today she was witnessed ambulating around the room without any noted dyspnea. She will be discharged home, instructed to follow up with her PCP in 1-2 weeks. She will be continued on Levaquin 500 mg p.o. daily x7 days, prednisone 40 mg p.o. daily and is instructed to continue all previous home medications. Physical examination General: Alert and Oriented x3. No acute distress. Well-nourished. Eyes: EOMI. Anicteric. HENT: Moist mucous membranes. Lungs: Clear to auscultation bilaterally. No accessory muscle use. Cardiovascular: Regular rate and rhythm. No murmur. No JVD. Abdomen: Soft, non-tender and non-distended. No palpable masses. Extremities: No edema. Non-tender. Skin: No rashes or lesions. Warm. Neurologic: No focal neurological deficits. CN II-XII grossly intact, but not individually tested. Psychiatric: Cooperative. Appropriate mood and affect. Total time spent with patient discussing and formulating plan of care: 35 minutes. This medical document was created using an electronic medical record system with [employer] dictation system. Although this document has been carefully reviewed, there may still be some phonetic and typographical errors. These areas are purely typographical due to imperfections of the software programs, and do not reflect any compromise in the patient's medical care. Condition at Discharge: Fair Final Diagnosis/Problems List Acute on chronic hypoxic respiratory failure -Acute Hypoxic Respiratory Failure -Pneumonia, gram+/gram- etiology -Copd -Anxiety -Hx of smoking Discharge Disposition: Home Discharge Instruct/Medications Diet: Cardiac 2g Na,low cholest Activity: No Restrictions, As Tolerated Follow Up/Referral: Follow up with PCP in 1-2 weeks Medications: Levaquin 500 mg p.o. daily x7 days Prednisone 40 mg p.o. daily x7 days Continue all previous home medication Scheduled Alprazolam (Xanax), 1 TAB PO BID, (Reported) Gtnzcyopfxm-Xtkawkaocfwd-Gsmek (Trelegy Ellipta 200-62.5-25 Mcg/INH), 1 AER IN DAILY, (Reported) Levofloxacin Hemihydrate (Levaquin 500 Mg), 1 TAB PO DAILY Omeprazole (Gnp Omeprazole), 1 TAB PO DAILY, (Reported) Pantoprazole Sodium Sesquihydr (Pantoprazole Sodium), 40 MG PO DAILY Prednisone (Prednisone), 40 MG PO DAILY Sertraline Hcl (Zoloft), 100 MG PO DAILY, (Reported) Scheduled PRN Albuterol Sulfate (Ventolin Mdi), 90 MCG IN for SHORTNESS OF BREATH, (Reported) Miscellaneous Medications Ondansetron Odt 4MG Tab (Zofran Po), 4 MG PO, (Reported) 36 Discharge Statement: "Patient was advised to return to the ER or call 911 if any headaches, dizziness, shortness of breath, chest pain, abdominal pain, bleeding, fevers, or worsening of medical condition. Patient was counseled about treatment plan, medications, possible side effects, patientverbalized understanding. All questions were answered to the best of my ability. This discharge took greater then 30 minutes in planning, reviewing documentation, counseling the patient, and discussing with other team members." ASSESSMENT ASSESSMENT Assessment Acute on chronic hypoxic respiratory failure Date of Service: Feb 16, 2025 Billing Provider: NAHUN TYSON NP Common Visit Codes: [id number] INP/OBS CARE(HIGH) NAHUN TYSON NP Feb 16, 2025 13:00
[2025-02-16] MEDS ORDERED: HYDR-4902 PO (16:32)
== END 2025-02-16 16:52 | disposition home or self-care (01) | DRG 177 ==
LOC: ER 15:36 → EDBD 15:36 → OVERFLOW 19:31 → EAST 02-11 17:20
PROVIDERS: ADMIT Nurse Practitioner Acute Care; ATTEND Nurse Practitioner Acute Care
DX: J15.69 Pneumonia due to other Gram-negative bacteria (principal); J96.21 Acute and chronic respiratory failure with hypoxia; J44.0 Chronic obstructive pulmonary disease with (acute) lower respiratory infection; J15.9 Unspecified bacterial pneumonia; F32.A Depression, unspecified; J44.1 Chronic obstructive pulmonary disease with (acute) exacerbation; Z20.822 Contact with and (suspected) exposure to COVID-19; J98.4 Other disorders of lung; F41.9 Anxiety disorder, unspecified; K21.9 Gastro-esophageal reflux disease without esophagitis; Z96.643 Presence of artificial hip joint, bilateral; K59.00 Constipation, unspecified; Z99.81 Dependence on supplemental oxygen; Z88.0 Allergy status to penicillin; Z87.891 Personal history of nicotine dependence
CPT/HCPCS: 36415; 71045; 74018; 80048; 80053; 81001; 84484; 85007; 85025; 85027; 85379; 87426; 87804; 93005; 94640; 94644; 96365; 96375; G0378; J1956; J2405